=== PATIENT | female | born 1945 | race Caucasian/White ===

== ENCOUNTER → 2016-02-23 | Outpatient (CLI) | payer MEDICARE, MEDICAID ==
[~2016-02-23] MED LIST: ALBUTEROL0.09 MG/A2 IH; BENICAR40 MG; BENICAR40 MG PO; BIAXIN500 MG PO; CEFADROXIL500 M1 PO; CIPROFLOXACIN500 MG PO; CLARITIN10 MG PO; COMBIVENT1 ARO IH; Coumadin2.5 MG PO; DAYPRO600 M1 PO; HUMALOG100 U/ML SC; HYDROCODONE BIT1 T11 PO; JANUVIA50 MG PO; K-DUR 20MEQ20 MEQ PO; LANTUS SOLOS100 U/M1 SC; LANTUS100 U/ML SC; LASIX40 MG PO; LISINOPRIL20 MG PO; MEDROL DOSEPAK4 MG PO; METOPROLOL25 MG; MIRTAZAPINE30 M1; NORCO 325 MG-51 TAB PO; NOVOLOG FLEX100 U/ML SC; NOVOLOG100 U/ML SC; OCUVITE LUTEIN1 CA1; PERCOCET 325 MG1 TA5 PO; POTASSIUM20 MEQ PO; PRAVASTATIN SOD40 MG; PRILOSEC OTC20 MG PO; PROAIR HFA0.09 MG/AC; Percocet 325 MG1 TAB PO; SYMBICORT; SYMBICORT1 AE1; SYNTHROID,LEV175 MCG PO; TRAMADOL50 MG PO; VIBRAMYCIN100 MG PO; ZITHROMAX Z PA250 MG PO; ZOFRAN4 MG PO
[2016-02-23 14:24] LABS: ALKALINE PHOSPHATASE 98 U/L (45-117); BILIRUBIN, TOTAL 0.5 mg/dl (0.2-1.0); BUN 20 mg/dl (7-24); CARBON DIOXIDE 27 mmol/L (21-32); CHLORIDE 107 mmol/L (98-107); CHOLESTEROL 163 mg/dL (<200); EST GLOM FILT AFRICAN AMERICAN > 60 ml/min; GLUCOSE 158 mg/dL (65-99); HDL CHOLESTEROL 38 mg/dl (40-60); LDL CHOLESTEROL 92 mg/dL (9-159); POTASSIUM 4.1 mmol/L (3.5-5.1); SGOT/AST 20 IU/L (3-35); SGPT/ALT 22 U/L (12-78); SODIUM 143 mmol/L (136-145); TOTAL PROTEIN 7.5 gm/dL (6.4-8.2); TRIGLYCERIDES 165 mg/dl (<150); VLDL CHOLESTEROL 33 mg/dL (6-40)
[2016-02-23 14:55] LABS: HEMOGLOBIN A1c 7.7 % (4.8-5.6)
== END | disposition home or self-care (01) ==
LOC: LAB 13:37
DX: E11.9 Type 2 diabetes mellitus without complications (principal); I10 Essential (primary) hypertension; E78.5 Hyperlipidemia, unspecified

== ENCOUNTER → 2016-06-26 | Outpatient (CLI) | payer MEDICARE, MEDICAID ==
[2016-06-26 14:40] LABS: ALBUMIN 2.9 gm/dl (3.1-4.5); BILIRUBIN, TOTAL 0.4 mg/dl (0.2-1.0); BUN 16 mg/dl (7-24); CARBON DIOXIDE 27 mmol/L (21-32); CHLORIDE 104 mmol/L (98-107); EST GLOM FILT AFRICAN AMERICAN > 60 ml/min; GLUCOSE 171 mg/dL (65-99); POTASSIUM 4.3 mmol/L (3.5-5.1); SGOT/AST 13 IU/L (3-35); SGPT/ALT 16 U/L (12-78); SODIUM 139 mmol/L (136-145)
[2016-06-26 14:43] LABS: HEMOGLOBIN A1c 8.1 % (4.8-5.6)
[2016-06-26 14:48] LABS: ALKALINE PHOSPHATASE 101 U/L (45-117); CHOLESTEROL 173 mg/dL (<200); HDL CHOLESTEROL 49 mg/dl (40-60); LDL CHOLESTEROL 99 mg/dL (9-159); TOTAL PROTEIN 7.4 gm/dL (6.4-8.2); TRIGLYCERIDES 125 mg/dl (<150); VLDL CHOLESTEROL 25 mg/dL (6-40)
== END | disposition home or self-care (01) ==
LOC: LAB 13:34
PROVIDERS: Physician Assistant Medical
DX: E03.9 Hypothyroidism, unspecified (principal); I10 Essential (primary) hypertension; E78.00 Pure hypercholesterolemia, unspecified; E11.65 Type 2 diabetes mellitus with hyperglycemia

== ENCOUNTER → 2016-10-31 | Outpatient (CLI) | payer MEDICARE, MEDICAID ==
[2016-10-31 14:29] LABS: ALKALINE PHOSPHATASE 102 U/L (45-117); BUN 11 mg/dl (7-24); CHLORIDE 101 mmol/L (98-107); CHOLESTEROL 167 mg/dL (<200); CREATININE 0.84 mg/dL (0.55-1.02); FREE T4 0.82 ng/dl (0.76-1.46); HDL CHOLESTEROL 40 mg/dl (40-60); LDL CHOLESTEROL 88 mg/dL (9-159); POTASSIUM 3.8 mmol/L (3.5-5.1); SGOT/AST 15 IU/L (3-35); SGPT/ALT 12 U/L (12-78); SODIUM 136 mmol/L (136-145); TOTAL PROTEIN 7.6 gm/dL (6.4-8.2); TRIGLYCERIDES 193 mg/dl (<150); VLDL CHOLESTEROL 39 mg/dL (6-40)
== END | disposition home or self-care (01) ==
LOC: LAB 13:31
PROVIDERS: Physician Assistant Medical
DX: E11.65 Type 2 diabetes mellitus with hyperglycemia (principal); I10 Essential (primary) hypertension; E78.00 Pure hypercholesterolemia, unspecified; E03.9 Hypothyroidism, unspecified; E55.9 Vitamin D deficiency, unspecified

== ENCOUNTER → 2017-03-07 | Outpatient (CLI) | payer MEDICARE, MEDICAID ==
[2017-03-07 13:58] LABS: THYROID STIM HORMONE (HS) 26.8 uIU/ml (0.358-4.75)
[2017-03-07 14:02] LABS: FREE T4 0.73 ng/dl (0.76-1.46)
== END | disposition home or self-care (01) ==
LOC: LAB 13:04
DX: E03.9 Hypothyroidism, unspecified (principal); E11.65 Type 2 diabetes mellitus with hyperglycemia

== ENCOUNTER → 2017-07-16 | Outpatient (CLI) | payer MEDICARE, MEDICAID ==
[2017-07-16 14:54] LABS: THYROID STIM HORMONE (HS) 16.6 uIU/ml (0.358-4.75)
== END | disposition home or self-care (01) ==
LOC: LAB 13:46
DX: E11.65 Type 2 diabetes mellitus with hyperglycemia (principal); E03.9 Hypothyroidism, unspecified

== ENCOUNTER 2017-08-05 22:25 | Emergency (ER) | payer MEDICARE, MEDICAID ==
[~2017-08-05] VITALS: Ht 170.1 cm; Wt 90.3 kg
[2017-08-05 23:04] LABS: INTERNATIONAL NORM RATIO 1.1 (2.0-3.5)
[2017-08-05 23:07] LABS: BASO % 0.4 % (0.0-1.0); EOS # 0.2 10*3/uL (0.0-0.4); EOS % 1.9 % (1.0-4.0); HEMATOCRIT 38.6 % (37.0-47.0); HEMOGLOBIN 12.2 g/dl (12.0-16.0); LYMPH % 25.6 % (27.0-41.0); MEAN CELL VOLUME 92.6 fl (81.0-99.0); MEAN CORPUSCULAR HGB 29.3 pg (27.0-31.0); MEAN CORPUSCULAR HGB CONC 31.6 g/dl (33.0-37.0); MEAN PLATELET VOLUME 10.6 fl (9.6-12.3); MONO # 1.1 10*3/uL (0.1-1.0); MONO % 13.5 % (3.0-9.0); NEUT # 4.6 10*3/uL (2.3-7.9); NEUT % 58.5 % (47.0-73.0); PLATELET COUNT AUTOMATED 252 10*3/uL (130-400); RED BLOOD COUNT 4.17 10*6/uL (4.10-5.10); RED CELL DISTRI WIDTH 13.4 % (0-14.5); WHITE BLOOD COUNT 7.9 10*3/uL (4.8-10.8)
[2017-08-05 23:12] LABS: ALBUMIN 3.4 gm/dl (3.1-4.5); CREATININE 1.73 mg/dL (0.55-1.02); POTASSIUM 5.1 mmol/L (3.5-5.1)
[2017-08-05 23:18] LABS: TROPONIN I 0.095 ng/ml (<0.045)
[2017-08-05 23:20] LABS: THYROID STIM HORMONE (HS) 0.476 uIU/ml (0.358-4.75)
== END 2017-08-06 00:51 | disposition short-term general hospital (02) ==
LOC: ED 22:25
PROVIDERS: Emergency Medicine Emergency Medical Services
DX: G45.9 Transient cerebral ischemic attack, unspecified (principal); I48.0 Paroxysmal atrial fibrillation; I25.2 Old myocardial infarction; E11.9 Type 2 diabetes mellitus without complications; I10 Essential (primary) hypertension; Z86.73 Personal history of transient ischemic attack (TIA), and cerebral infarction without residual deficits; Z99.81 Dependence on supplemental oxygen; Z79.82 Long term (current) use of aspirin; Z79.4 Long term (current) use of insulin; Z79.899 Other long term (current) drug therapy; Z98.890 Other specified postprocedural states; Z79.01 Long term (current) use of anticoagulants; Z88.2 Allergy status to sulfonamides

== ENCOUNTER → 2017-09-12 | Outpatient (CLI) | payer MEDICARE, MEDICAID ==
--- NOTE | ~2017-09-12 | EKG ---
[place], [place] ELECTROCARDIOGRAM REPORT NAME: PENG FRANCO UNIT #: [id number] ROOM: DOCTOR: EPIPHANY DRAFT REPORT BIRTHDATE: [birth year] [facility] Test Date: 2017-09-12 Test Time: 13:21:46 Pat Name: PENG FRANCO Department: Room: Gender: F Manager Nc: : 1945 Requested By: TOMY ALVAREZ Order Number: [id number] Reading MD: Tj Maki MD Measurements Intervals [place] Rate: 66 P: 82 MT: 157 QRS: 28 QRSD: 107 T: 142 QT: 430 QTc: 451 Interpretive Statements Sinus rhythm Inferior infarct, old Nonspecific T-wave abnormalities Baseline wander in lead(s) V4 Electronically Signed On 09-12-2017 21:40:43 PDT by Tj Maki MD CM:EKGRPT:ELECTROCARDIOGRAM REPORT 1321 2140 TOMY NGUYEN DRAFT REPORT TOMY ALVAREZ MD
[2017-09-12 13:26] LABS: CREATININE 1.94 mg/dL (0.55-1.02); POTASSIUM 4.9 mmol/L (3.5-5.1)
== END | disposition home or self-care (01) ==
LOC: LAB 12:29
PROVIDERS: Internal Medicine
DX: Z51.81 Encounter for therapeutic drug level monitoring (principal); R79.89 Other specified abnormal findings of blood chemistry

== ENCOUNTER 2017-11-19 14:22 | Inpatient (IN) | payer MEDICARE, MEDICAID ==
[~2017-11-19] VITALS: Ht 170.2 cm; Wt 94.3 kg
--- NOTE | ~2017-11-19 | EKG ---
[place], [place] ELECTROCARDIOGRAM REPORT NAME: PENG FRANCO UNIT #: [id number] ROOM: 511 DOCTOR: PATRICK DRAFT REPORT BIRTHDATE: [birth year] [facility] Test Date: 2017-11-19 Test Time: 17:37:18 Pat Name: PENG FRANCO Department: Room: 511 2 Gender: F Build Master: Jacqueline Florence : 1945 Requested By: LOVELY RODRIGUEZ Order Number: [id number] Reading MD: Tj Maki MD Measurements Intervals [place] Rate: 90 P: 99 MA: 107 QRS: 39 QRSD: 90 T: -37 QT: 399 QTc: 489 Interpretive Statements Wandering atrial pacemaker Multiform ventricular premature complexes Short MA interval NSST-T changes Compared to ECG 09/12/2017 13:21:46 Ventricular premature complex(es) now present Short MA interval now present Sinus rhythm no longer present Myocardial infarct finding no longer present Electronically Signed On 11-19-2017 19:54:57 PDT by Tj Maki MD CM:EKGRPT:ELECTROCARDIOGRAM REPORT 1737 53 LOVELY NGUYEN DRAFT REPORT LOVELY RODRIGUEZ MD
[2017-11-19 14:23] VITALS: BP 124/66
[2017-11-19 14:53] LABS: HEMATOCRIT 30.4 % (37.0-47.0); HEMOGLOBIN 9.3 g/dl (12.0-16.0); MEAN CELL VOLUME 86.4 fl (81.0-99.0); MEAN CORPUSCULAR HGB 26.4 pg (27.0-31.0); MEAN CORPUSCULAR HGB CONC 30.6 g/dl (33.0-37.0); MEAN PLATELET VOLUME 9.9 fl (9.6-12.3); NUCLEATED RED BLOOD CELL 0.1 % (0.0-0.0); PLATELET COUNT AUTOMATED 406 10*3/uL (130-400); RED BLOOD COUNT 3.52 10*6/uL (4.10-5.10); RED CELL DISTRI WIDTH 16.2 % (0-14.5); WHITE BLOOD COUNT 13.4 10*3/uL (4.8-10.8)
[2017-11-19 15:06] LABS: CREATININE 1.14 mg/dL (0.55-1.02); POTASSIUM 3.1 mmol/L (3.5-5.1)
[2017-11-19 15:15] LABS: TOTAL CELLS COUNTED 100 #CELLS
[2017-11-19 15:16] LABS: PLATELET SUFFICIENCY HIGH (NORMAL)
[2017-11-19 15:54] LABS: ACT PARTIAL THROMBO TIME 34.2 SECONDS (20.8-31.5); INTERNATIONAL NORM RATIO 1.3 (2.0-3.5)
[2017-11-19 17:01] VITALS: BP 123/61
[2017-11-19 18:10] LABS: ALBUMIN 1.6 gm/dl (3.1-4.5); ALKALINE PHOSPHATASE 114 U/L (45-117); BILIRUBIN, DIRECT 0.3 mg/dL (0.0-0.2); SGOT/AST 18 IU/L (3-35); SGPT/ALT 14 U/L (12-78); TOTAL PROTEIN 5.5 gm/dL (6.4-8.2)
[2017-11-19 18:15] LABS: TROPONIN I < 0.015 ng/ml (<0.045)
[2017-11-19 19:00] VITALS: BP 107/42
[2017-11-19] MEDS ORDERED: BUMETANIDE1 MG PO (19:08)
[2017-11-19] MEDS ORDERED: ARICEPT10 M1 PO (19:09)
[2017-11-19] MEDS ORDERED: ELIQUIS5 M1 PO (19:10)
[2017-11-19] MEDS ORDERED: METOPROLOL SUC100 M1 PO (19:17)
[2017-11-19] MEDS ORDERED: FERROUS GLUCON324 M1 PO (19:18)
[2017-11-19] MEDS ORDERED: FERROUS SULFAT325 MG PO (19:18)
[2017-11-19] MEDS ORDERED: PROTONIX40 MG PO (19:19)
[2017-11-19] MEDS ORDERED: PROPAFENONE HC150 MG PO (19:20)
[2017-11-19] MEDS ORDERED: RANITIDINE75 MG PO (19:20)
[2017-11-19 20:00] VITALS: BP 107/42
[2017-11-20] VITALS (10 sets, daily range): BP systolic 106–130; BP diastolic 51–71
[2017-11-20 07:14] LABS: ACT PARTIAL THROMBO TIME 35.7 SECONDS (20.8-31.5); INTERNATIONAL NORM RATIO 1.3 (2.0-3.5)
[2017-11-20 07:20] LABS: BASO % 0.3 % (0.0-1.0); EOS % 0.2 % (1.0-4.0); LYMPH # 1.3 10*3/uL (1.3-4.4); LYMPH % 21.3 % (27.0-41.0); MEAN CELL VOLUME 87.6 fl (81.0-99.0); MEAN CORPUSCULAR HGB 25.9 pg (27.0-31.0); MEAN CORPUSCULAR HGB CONC 29.6 g/dl (33.0-37.0); MEAN PLATELET VOLUME 9.8 fl (9.6-12.3); MONO # 0.7 10*3/uL (0.1-1.0); MONO % 11.7 % (3.0-9.0); NEUT # 4.1 10*3/uL (2.3-7.9); NEUT % 64.9 % (47.0-73.0); PLATELET COUNT AUTOMATED 289 10*3/uL (130-400); RED BLOOD COUNT 2.66 10*6/uL (4.10-5.10); RED CELL DISTRI WIDTH 16.5 % (0-14.5); WHITE BLOOD COUNT 6.3 10*3/uL (4.8-10.8)
[2017-11-20 07:22] LABS: HEMOGLOBIN 6.9 g/dl (12.0-16.0)
[2017-11-20 07:23] LABS: HEMATOCRIT 23.3 % (37.0-47.0)
[2017-11-20 07:33] LABS: CHLORIDE 103 mmol/L (98-107); POTASSIUM 3.4 mmol/L (3.5-5.1); SODIUM 138 mmol/L (136-145)
[2017-11-20 07:46] LABS: ALBUMIN 1.5 gm/dl (3.1-4.5); ALKALINE PHOSPHATASE 104 U/L (45-117); BUN 11 mg/dl (7-24); CHOLESTEROL 78 mg/dL (<200); CREATININE 0.83 mg/dL (0.55-1.02); HDL CHOLESTEROL 15 mg/dl (40-60); LDL CHOLESTEROL 36 mg/dL (9-159); PHOSPHOROUS 3.1 mg/dL (2.5-4.9); SGOT/AST 17 IU/L (3-35); SGPT/ALT 12 U/L (12-78); TOTAL PROTEIN 4.8 gm/dL (6.4-8.2); TRIGLYCERIDES 136 mg/dl (<150); VLDL CHOLESTEROL 27 mg/dL (6-40)
[2017-11-20 10:04] LABS: VITAMIN D, 25-HYDROXY 18.1 ng/mL (30-100)
[2017-11-20 15:20] LABS: BASO % 0.3 % (0.0-1.0); EOS % 0.1 % (1.0-4.0); HEMATOCRIT 28.3 % (37.0-47.0); HEMOGLOBIN 8.6 g/dl (12.0-16.0); LYMPH # 1.6 10*3/uL (1.3-4.4); LYMPH % 23.4 % (27.0-41.0); MEAN CELL VOLUME 88.7 fl (81.0-99.0); MEAN CORPUSCULAR HGB CONC 30.4 g/dl (33.0-37.0); MEAN PLATELET VOLUME 9.9 fl (9.6-12.3); MONO # 0.7 10*3/uL (0.1-1.0); MONO % 9.9 % (3.0-9.0); NEUT # 4.5 10*3/uL (2.3-7.9); NEUT % 64.8 % (47.0-73.0); PLATELET COUNT AUTOMATED 309 10*3/uL (130-400); RED BLOOD COUNT 3.19 10*6/uL (4.10-5.10); WHITE BLOOD COUNT 6.9 10*3/uL (4.8-10.8)
[2017-11-21] VITALS: BP 109/70
[2017-11-21 08:00] VITALS: BP 132/70
[2017-11-21 10:42] LABS: BASO % 0.2 % (0.0-1.0); EOS % 0.3 % (1.0-4.0); HEMATOCRIT 28.4 % (37.0-47.0); HEMOGLOBIN 8.6 g/dl (12.0-16.0); LYMPH # 1.5 10*3/uL (1.3-4.4); MEAN CELL VOLUME 88.2 fl (81.0-99.0); MEAN CORPUSCULAR HGB 26.7 pg (27.0-31.0); MEAN CORPUSCULAR HGB CONC 30.3 g/dl (33.0-37.0); MEAN PLATELET VOLUME 9.6 fl (9.6-12.3); MONO # 0.5 10*3/uL (0.1-1.0); MONO % 8.8 % (3.0-9.0); NEUT # 3.9 10*3/uL (2.3-7.9); PLATELET COUNT AUTOMATED 313 10*3/uL (130-400); RED BLOOD COUNT 3.22 10*6/uL (4.10-5.10); RED CELL DISTRI WIDTH 16.1 % (0-14.5)
[2017-11-21 11:05] LABS: ALBUMIN 1.6 gm/dl (3.1-4.5); ALKALINE PHOSPHATASE 104 U/L (45-117); BUN 10 mg/dl (7-24); CHLORIDE 105 mmol/L (98-107); CREATININE 0.87 mg/dL (0.55-1.02); POTASSIUM 3.5 mmol/L (3.5-5.1); SGOT/AST 17 IU/L (3-35); SGPT/ALT 14 U/L (12-78); SODIUM 140 mmol/L (136-145); TOTAL PROTEIN 5.2 gm/dL (6.4-8.2)
[2017-11-21 12:00] VITALS: BP 122/70
[2017-11-21 16:00] VITALS: BP 119/75
[2017-11-21 20:00] VITALS: BP 102/58
[2017-11-22] VITALS: BP 127/67
[2017-11-22 06:59] LABS: BASO % 0.5 % (0.0-1.0); EOS % 0.3 % (1.0-4.0); HEMATOCRIT 27.1 % (37.0-47.0); HEMOGLOBIN 8.3 g/dl (12.0-16.0); LYMPH # 1.2 10*3/uL (1.3-4.4); LYMPH % 20.8 % (27.0-41.0); MEAN CORPUSCULAR HGB 26.9 pg (27.0-31.0); MEAN CORPUSCULAR HGB CONC 30.6 g/dl (33.0-37.0); MEAN PLATELET VOLUME 9.9 fl (9.6-12.3); MONO # 0.6 10*3/uL (0.1-1.0); MONO % 9.9 % (3.0-9.0); NEUT # 3.9 10*3/uL (2.3-7.9); NEUT % 66.9 % (47.0-73.0); PLATELET COUNT AUTOMATED 311 10*3/uL (130-400); RED BLOOD COUNT 3.08 10*6/uL (4.10-5.10); RED CELL DISTRI WIDTH 16.3 % (0-14.5); WHITE BLOOD COUNT 5.8 10*3/uL (4.8-10.8)
[2017-11-22 07:37] LABS: ALBUMIN 1.7 gm/dl (3.1-4.5); BUN 8 mg/dl (7-24); CHLORIDE 103 mmol/L (98-107); POTASSIUM 3.5 mmol/L (3.5-5.1); SGOT/AST 18 IU/L (3-35); SGPT/ALT 14 U/L (12-78); SODIUM 139 mmol/L (136-145)
[2017-11-22 07:38] LABS: ALKALINE PHOSPHATASE 93 U/L (45-117); TOTAL PROTEIN 5.2 gm/dL (6.4-8.2)
[2017-11-22 08:00] VITALS: BP 108/62
[2017-11-22 12:00] VITALS: BP 111/48
[2017-11-22 16:00] VITALS: BP 116/56
[2017-11-22 17:44] LABS: BILIRUBIN NEGATIVE (NEGATIVE); BLOOD 1+ (NEGATIVE); CLARITY CLEAR (CLEAR); COLOR YELLOW (YELLOW); GLUCOSE NEGATIVE (NEGATIVE); KETONE NEGATIVE (NEGATIVE); LEUKO ESTERASE 1+ (NEGATIVE); NITRITE POSITIVE (NEGATIVE); SPECIFIC GRAVITY 1.015 (1.005-1.030); UROBILINOGEN 0.2 E.U./dl (0.2-1.0)
[2017-11-22 17:56] LABS: BACTERIA 4+; EPITHELIAL CELLS 0-2; WBC 31-40 wbc/hpf (0-5)
[2017-11-22 20:00] VITALS: BP 118/52
[2017-11-23] VITALS: BP 113/72
[2017-11-23 06:23] LABS: BASO % 0.5 % (0.0-1.0); EOS % 0.2 % (1.0-4.0); HEMATOCRIT 28.2 % (37.0-47.0); HEMOGLOBIN 8.5 g/dl (12.0-16.0); LYMPH # 1.4 10*3/uL (1.3-4.4); LYMPH % 15.8 % (27.0-41.0); MEAN CELL VOLUME 87.6 fl (81.0-99.0); MEAN CORPUSCULAR HGB 26.4 pg (27.0-31.0); MEAN CORPUSCULAR HGB CONC 30.1 g/dl (33.0-37.0); MEAN PLATELET VOLUME 9.7 fl (9.6-12.3); MONO # 0.9 10*3/uL (0.1-1.0); MONO % 9.7 % (3.0-9.0); NEUT # 6.4 10*3/uL (2.3-7.9); NEUT % 72.9 % (47.0-73.0); PLATELET COUNT AUTOMATED 313 10*3/uL (130-400); RED BLOOD COUNT 3.22 10*6/uL (4.10-5.10); RED CELL DISTRI WIDTH 16.2 % (0-14.5); WHITE BLOOD COUNT 8.7 10*3/uL (4.8-10.8)
[2017-11-23 06:53] LABS: ALBUMIN 1.7 gm/dl (3.1-4.5); ALKALINE PHOSPHATASE 95 U/L (45-117); BUN 7 mg/dl (7-24); CHLORIDE 102 mmol/L (98-107); CREATININE 0.86 mg/dL (0.55-1.02); POTASSIUM 3.1 mmol/L (3.5-5.1); SGOT/AST 15 IU/L (3-35); SGPT/ALT 14 U/L (12-78); SODIUM 139 mmol/L (136-145); TOTAL PROTEIN 5.6 gm/dL (6.4-8.2)
[2017-11-23 08:00] VITALS: BP 118/64
[2017-11-23 12:00] VITALS: BP 109/75
[2017-11-23 16:00] VITALS: BP 128/47
[2017-11-23 20:00] VITALS: BP 126/55
[2017-11-24] VITALS: BP 113/60
[2017-11-24 08:00] VITALS: BP 115/60
[2017-11-24] MEDS ORDERED: CIPRO250 MG PO (10:02)
[2017-11-24] MEDS ORDERED: PHARMASSURE FO0.4 MG PO (10:02)
[2017-11-24 12:00] VITALS: BP 100/53
== END 2017-11-24 15:45 | disposition other institution (70) | DRG 551 ==
LOC: ED 14:22 → EDHOLD 16:32 → 5E 16:32
PROVIDERS: Emergency Medicine; Family Medicine; Internal Medicine; Student in an Organized Health Care Education/Training Program
PROC: 30233N1 Transfusion of Nonautologous Red Blood Cells into Peripheral Vein, Percutaneous Approach (ICD-10-PCS; principal; 2017-11-20)
DX: S22.080A Wedge compression fracture of T11-T12 vertebra, initial encounter for closed fracture (principal); N17.0 Acute kidney failure with tubular necrosis; E43 Unspecified severe protein-calorie malnutrition; N39.0 Urinary tract infection, site not specified; D64.9 Anemia, unspecified; N18.3 Chronic kidney disease, stage 3 (moderate); D72.825 Bandemia; E11.65 Type 2 diabetes mellitus with hyperglycemia; I48.0 Paroxysmal atrial fibrillation; N18.9 Chronic kidney disease, unspecified; E11.22 Type 2 diabetes mellitus with diabetic chronic kidney disease; K21.9 Gastro-esophageal reflux disease without esophagitis; E80.6 Other disorders of bilirubin metabolism; D72.810 Lymphocytopenia; D72.9 Disorder of white blood cells, unspecified; E87.6 Hypokalemia; Y93.89 Activity, other specified; D47.3 Essential (hemorrhagic) thrombocythemia; J43.9 Emphysema, unspecified; B96.1 Klebsiella pneumoniae [K. pneumoniae] as the cause of diseases classified elsewhere; E55.9 Vitamin D deficiency, unspecified; E53.8 Deficiency of other specified B group vitamins; R31.9 Hematuria, unspecified; G89.29 Other chronic pain; M54.9 Dorsalgia, unspecified; W18.30XA Fall on same level, unspecified, initial encounter; Z88.2 Allergy status to sulfonamides; Z86.73 Personal history of transient ischemic attack (TIA), and cerebral infarction without residual deficits; Z90.710 Acquired absence of both cervix and uterus; Z95.5 Presence of coronary angioplasty implant and graft; Z79.01 Long term (current) use of anticoagulants; Y92.008 Other place in unspecified non-institutional (private) residence as the place of occurrence of the external cause; Y99.8 Other external cause status; I25.2 Old myocardial infarction; Z98.49 Cataract extraction status, unspecified eye; Z68.32 Body mass index [BMI] 32.0-32.9, adult

== ENCOUNTER 2017-12-24 15:43 | Inpatient (IN) | payer MEDICARE, MEDICAID ==
[~2017-12-24] VITALS: Ht 170.1 cm; Wt 76.2 kg
--- NOTE | ~2017-12-24 | EKG ---
[place], [place] ELECTROCARDIOGRAM REPORT NAME: PENG FRANCO UNIT #: [id number] ROOM: 412 DOCTOR: PATRICK DRAFT REPORT BIRTHDATE: [birth year] [facility] Test Date: 2017-12-24 Test Time: 15:56:12 Pat Name: PENG FRANCO Department: Room: 412 Gender: F Journeyman Patternmaker: DAVE : 1945 Requested By: LOVELY RODRIGUEZ Order Number: [id number] Reading MD: Tj Maki MD Measurements Intervals [place] Rate: 74 P: 68 MO: 135 QRS: 40 QRSD: 93 T: -18 QT: 427 QTc: 474 Interpretive Statements Sinus rhythm with wandering atrial pacemaker Multiple premature complexes, vent \T\ supraven Borderline repolarization abnormality Compared to ECG 11/19/2017 17:37:18 No significant change Electronically Signed On 12-24-2017 20:20:08 PST by Tj Maki MD CM:EKGRPT:ELECTROCARDIOGRAM REPORT 1556 19 LOVELY NGUYEN DRAFT REPORT LOVELY RODRIGUEZ MD
[~2017-12-24 15:43] MED LIST changes: +ARICEPT10 M1 PO; +BUMETANIDE1 MG PO; +CIPRO250 MG PO; +ELIQUIS5 M1 PO; +FERROUS GLUCON324 M1 PO; +FERROUS SULFAT325 MG PO; +METOPROLOL SUC100 M1 PO; +PHARMASSURE FO0.4 MG PO; +PROPAFENONE HC150 MG PO; +PROTONIX40 MG PO; +RANITIDINE75 MG PO
[2017-12-24 15:44] VITALS: BP 116/49
[2017-12-24 16:18] LABS: BASO % 0.3 % (0.0-1.0); EOS # 0.1 10*3/uL (0.0-0.4); EOS % 3.8 % (1.0-4.0); HEMATOCRIT 28.3 % (37.0-47.0); HEMOGLOBIN 8.6 g/dl (12.0-16.0); LYMPH # 1.2 10*3/uL (1.3-4.4); LYMPH % 34.3 % (27.0-41.0); MEAN CELL VOLUME 90.4 fl (81.0-99.0); MEAN CORPUSCULAR HGB 27.5 pg (27.0-31.0); MEAN CORPUSCULAR HGB CONC 30.4 g/dl (33.0-37.0); MONO # 0.5 10*3/uL (0.1-1.0); MONO % 14.5 % (3.0-9.0); NEUT # 1.6 10*3/uL (2.3-7.9); NEUT % 46.8 % (47.0-73.0); PLATELET COUNT AUTOMATED 184 10*3/uL (130-400); RED BLOOD COUNT 3.13 10*6/uL (4.10-5.10); RED CELL DISTRI WIDTH 16.3 % (0-14.5); WHITE BLOOD COUNT 3.4 10*3/uL (4.8-10.8)
[2017-12-24 16:28] LABS: ACT PARTIAL THROMBO TIME 26.8 SECONDS (20.8-31.5); INTERNATIONAL NORM RATIO 1.2 (2.0-3.5)
[2017-12-24 16:30] VITALS: BP 114/41
[2017-12-24 16:34] LABS: ALBUMIN 2.6 gm/dl (3.1-4.5); CREATININE 1.15 mg/dL (0.55-1.02); POTASSIUM 3.2 mmol/L (3.5-5.1); TOTAL PROTEIN 6.3 gm/dL (6.4-8.2)
[2017-12-24 16:36] LABS: TROPONIN I 0.016 ng/ml (<0.045)
[2017-12-24 16:47] LABS: THYROID STIM HORMONE (HS) 1.4 uIU/ml (0.358-4.75)
[2017-12-24 17:08] VITALS: BP 98/52
[2017-12-24] MEDS ORDERED: ACETAMINOPHEN500 M5 PO (17:29)
[2017-12-24 17:32] VITALS: BP 109/37
[2017-12-24] MEDS ORDERED: ARMOUR THYROID180 M1 PO (18:04)
[2017-12-24 20:00] VITALS: BP 108/48
[2017-12-25] VITALS: BP 105/40
[2017-12-25 05:49] LABS: EOS # 0.2 10*3/uL (0.0-0.4); HEMATOCRIT 26.5 % (37.0-47.0); HEMOGLOBIN 7.8 g/dl (12.0-16.0); LYMPH # 0.8 10*3/uL (1.3-4.4); LYMPH % 30.2 % (27.0-41.0); MEAN CORPUSCULAR HGB 27.1 pg (27.0-31.0); MEAN CORPUSCULAR HGB CONC 29.4 g/dl (33.0-37.0); MEAN PLATELET VOLUME 10.7 fl (9.6-12.3); MONO # 0.4 10*3/uL (0.1-1.0); MONO % 16.6 % (3.0-9.0); NEUT # 1.3 10*3/uL (2.3-7.9); NEUT % 47.2 % (47.0-73.0); PLATELET COUNT AUTOMATED 172 10*3/uL (130-400); RED BLOOD COUNT 2.88 10*6/uL (4.10-5.10); RED CELL DISTRI WIDTH 16.7 % (0-14.5); WHITE BLOOD COUNT 2.7 10*3/uL (4.8-10.8)
[2017-12-25 05:50] LABS: ALBUMIN 2.3 gm/dl (3.1-4.5); CREATININE 1.35 mg/dL (0.55-1.02); PHOSPHOROUS 4.3 mg/dL (2.5-4.9); POTASSIUM 3.3 mmol/L (3.5-5.1); TOTAL PROTEIN 5.7 gm/dL (6.4-8.2)
[2017-12-25 05:51] LABS: FREE T4 1.08 ng/dl (0.76-1.46)
[2017-12-25 05:55] LABS: THYROID STIM HORMONE (HS) 1.56 uIU/ml (0.358-4.75)
[2017-12-25 06:26] LABS: INTERNATIONAL NORM RATIO 1.2 (2.0-3.5)
[2017-12-25 07:30] VITALS: BP 118/50
[2017-12-25 07:55] LABS: VITAMIN D, 25-HYDROXY 22.2 ng/mL (30-100)
[2017-12-25 08:00] VITALS: BP 118/50
[2017-12-25 12:00] VITALS: BP 122/59
== END 2017-12-25 14:35 | disposition home health service (06) | DRG 291 ==
LOC: ED 15:43 → EDHOLD 16:51 → 4E 16:51
PROVIDERS: Emergency Medicine; Family Medicine
DX: I50.33 Acute on chronic diastolic (congestive) heart failure (principal); E43 Unspecified severe protein-calorie malnutrition; N17.0 Acute kidney failure with tubular necrosis; Z68.45 Body mass index [BMI] 70 or greater, adult; D50.9 Iron deficiency anemia, unspecified; E11.65 Type 2 diabetes mellitus with hyperglycemia; E87.8 Other disorders of electrolyte and fluid balance, not elsewhere classified; D72.819 Decreased white blood cell count, unspecified; M79.604 Pain in right leg; M79.605 Pain in left leg; E55.9 Vitamin D deficiency, unspecified; J43.9 Emphysema, unspecified; N18.9 Chronic kidney disease, unspecified; E11.22 Type 2 diabetes mellitus with diabetic chronic kidney disease; K21.9 Gastro-esophageal reflux disease without esophagitis; E87.6 Hypokalemia; I45.81 Long QT syndrome; I48.0 Paroxysmal atrial fibrillation; I25.2 Old myocardial infarction; Z86.73 Personal history of transient ischemic attack (TIA), and cerebral infarction without residual deficits; Z79.01 Long term (current) use of anticoagulants; Z88.2 Allergy status to sulfonamides; Z98.41 Cataract extraction status, right eye; Z98.42 Cataract extraction status, left eye; Z95.5 Presence of coronary angioplasty implant and graft; Z90.710 Acquired absence of both cervix and uterus; Z82.49 Family history of ischemic heart disease and other diseases of the circulatory system; Z79.84 Long term (current) use of oral hypoglycemic drugs; Z79.899 Other long term (current) drug therapy; Z91.14 Patient's other noncompliance with medication regimen

== ENCOUNTER 2018-01-18 01:56 | Inpatient (IN) | payer MEDICARE, MEDICAID ==
[~2018-01-18] VITALS: Ht 170.1 cm; Wt 79.0 kg
[2018-01-18] VITALS (7 sets, daily range): BP systolic 126–167; BP diastolic 59–97
--- NOTE | ~2018-01-18 | EKG ---
[place], [place] ELECTROCARDIOGRAM REPORT NAME: PENG FRANCO UNIT #: [id number] ROOM: 410 DOCTOR: PATRICK DRAFT REPORT BIRTHDATE: [birth year] [facility] Test Date: 2018-01-18 Test Time: 05:13:50 Pat Name: PENG FRANCO Department: Room: 410 Gender: F Diabetes Territory Manager: : 1945 Requested By: JEREMY BERGMAN Order Number: [id number] Reading MD: Tj Maki MD Measurements Intervals [place] Rate: 90 P: 36 WV: 136 QRS: 71 QRSD: 88 T: 98 QT: 398 QTc: 487 Interpretive Statements Sinus rhythm with wandering atrial pacemaker Borderline low voltage, extremity leads Borderline repolarization abnormality Compared to ECG 12/24/2017 15:56:12 No significant change Electronically Signed On 01-18-2018 14:31:27 PST by Tj Maki MD CM:EKGRPT:ELECTROCARDIOGRAM REPORT 0513 1431 JEREMY GALVAN DRAFT REPORT JEREMY BERGMAN DO
[~2018-01-18 01:56] MED LIST changes: +ACETAMINOPHEN500 M5 PO; +ARMOUR THYROID180 M1 PO
[2018-01-18 04:30] LABS: BILIRUBIN NEGATIVE (NEGATIVE); BLOOD 3+ (NEGATIVE); CLARITY CLOUDY (CLEAR); COLOR YELLOW (YELLOW); GLUCOSE NEGATIVE (NEGATIVE); KETONE NEGATIVE (NEGATIVE); LEUKO ESTERASE NEGATIVE (NEGATIVE); NITRITE NEGATIVE (NEGATIVE); UROBILINOGEN 0.2 E.U./dl (0.2-1.0)
[2018-01-18 04:45] LABS: BACTERIA 4+; EPITHELIAL CELLS 15-20; RBC 21-30 rbc/hpf (0-2)
[2018-01-18 05:13] LABS: BASO % 0.1 % (0.0-1.0); HEMATOCRIT 33.3 % (37.0-47.0); HEMOGLOBIN 9.9 g/dl (12.0-16.0); LYMPH # 1.1 10*3/uL (1.3-4.4); LYMPH % 13.7 % (27.0-41.0); MEAN CORPUSCULAR HGB 26.5 pg (27.0-31.0); MEAN CORPUSCULAR HGB CONC 29.7 g/dl (33.0-37.0); MEAN PLATELET VOLUME 9.1 fl (9.6-12.3); MONO # 0.7 10*3/uL (0.1-1.0); MONO % 8.4 % (3.0-9.0); NEUT # 6.5 10*3/uL (2.3-7.9); NEUT % 77.6 % (47.0-73.0); PLATELET COUNT AUTOMATED 238 10*3/uL (130-400); RED BLOOD COUNT 3.74 10*6/uL (4.10-5.10); RED CELL DISTRI WIDTH 14.8 % (0-14.5); WHITE BLOOD COUNT 8.4 10*3/uL (4.8-10.8)
[2018-01-18 05:22] LABS: INTERNATIONAL NORM RATIO 1.2 (2.0-3.5)
[2018-01-18 05:30] LABS: ALBUMIN 2.5 gm/dl (3.1-4.5); ALKALINE PHOSPHATASE 105 U/L (45-117); BUN 6 mg/dl (7-24); CHLORIDE 102 mmol/L (98-107); CREATININE 0.82 mg/dL (0.55-1.02); POTASSIUM 3.1 mmol/L (3.5-5.1); SGOT/AST 14 IU/L (3-35); SGPT/ALT 10 U/L (12-78); SODIUM 139 mmol/L (136-145); TOTAL PROTEIN 6.6 gm/dL (6.4-8.2)
[2018-01-19] VITALS: BP 133/51
[2018-01-19 05:58] LABS: BUN 7 mg/dl (7-24); CHLORIDE 105 mmol/L (98-107); CREATININE 0.92 mg/dL (0.55-1.02); PHOSPHOROUS 3.4 mg/dL (2.5-4.9); POTASSIUM 3.3 mmol/L (3.5-5.1); SODIUM 143 mmol/L (136-145)
[2018-01-19 06:09] LABS: BASO % 0.4 % (0.0-1.0); EOS % 0.4 % (1.0-4.0); HEMATOCRIT 31.7 % (37.0-47.0); HEMOGLOBIN 9.1 g/dl (12.0-16.0); LYMPH # 1.6 10*3/uL (1.3-4.4); MEAN CELL VOLUME 90.8 fl (81.0-99.0); MEAN CORPUSCULAR HGB 26.1 pg (27.0-31.0); MEAN CORPUSCULAR HGB CONC 28.7 g/dl (33.0-37.0); MEAN PLATELET VOLUME 10.3 fl (9.6-12.3); MONO % 15.3 % (3.0-9.0); NEUT % 59.8 % (47.0-73.0); PLATELET COUNT AUTOMATED 240 10*3/uL (130-400); RED BLOOD COUNT 3.49 10*6/uL (4.10-5.10); RED CELL DISTRI WIDTH 14.9 % (0-14.5); WHITE BLOOD COUNT 6.7 10*3/uL (4.8-10.8)
[2018-01-19 12:00] VITALS: BP 94/53
[2018-01-19 16:00] VITALS: BP 122/64
[2018-01-19 20:00] VITALS: BP 132/73
[2018-01-20] VITALS: BP 124/48
[2018-01-20 06:04] LABS: BASO % 0.5 % (0.0-1.0); EOS # 0.1 10*3/uL (0.0-0.4); EOS % 0.9 % (1.0-4.0); HEMOGLOBIN 10.4 g/dl (12.0-16.0); LYMPH # 1.8 10*3/uL (1.3-4.4); LYMPH % 30.2 % (27.0-41.0); MEAN CELL VOLUME 89.7 fl (81.0-99.0); MEAN CORPUSCULAR HGB 26.7 pg (27.0-31.0); MEAN CORPUSCULAR HGB CONC 29.7 g/dl (33.0-37.0); MONO # 0.8 10*3/uL (0.1-1.0); MONO % 13.8 % (3.0-9.0); NEUT # 3.2 10*3/uL (2.3-7.9); NEUT % 54.4 % (47.0-73.0); PLATELET COUNT AUTOMATED 249 10*3/uL (130-400); RED CELL DISTRI WIDTH 15.1 % (0-14.5); WHITE BLOOD COUNT 5.8 10*3/uL (4.8-10.8)
[2018-01-20 06:23] LABS: BUN 8 mg/dl (7-24); CHLORIDE 105 mmol/L (98-107); CREATININE 1.05 mg/dL (0.55-1.02); POTASSIUM 3.4 mmol/L (3.5-5.1); SODIUM 142 mmol/L (136-145)
[2018-01-20 08:00] VITALS: BP 131/59
[2018-01-20 12:00] VITALS: BP 130/62
[2018-01-20 16:00] VITALS: BP 130/65
[2018-01-20 20:00] VITALS: BP 123/55
[2018-01-21] VITALS: BP 120/55
[2018-01-21 06:48] LABS: BASO % 0.5 % (0.0-1.0); EOS # 0.1 10*3/uL (0.0-0.4); HEMATOCRIT 31.9 % (37.0-47.0); HEMOGLOBIN 9.4 g/dl (12.0-16.0); LYMPH # 2.3 10*3/uL (1.3-4.4); MEAN CELL VOLUME 90.4 fl (81.0-99.0); MEAN CORPUSCULAR HGB 26.6 pg (27.0-31.0); MEAN CORPUSCULAR HGB CONC 29.5 g/dl (33.0-37.0); MEAN PLATELET VOLUME 10.3 fl (9.6-12.3); MONO % 17.2 % (3.0-9.0); NEUT # 2.6 10*3/uL (2.3-7.9); PLATELET COUNT AUTOMATED 246 10*3/uL (130-400); RED BLOOD COUNT 3.53 10*6/uL (4.10-5.10); RED CELL DISTRI WIDTH 15.1 % (0-14.5); WHITE BLOOD COUNT 6.1 10*3/uL (4.8-10.8)
[2018-01-21 07:16] LABS: BUN 7 mg/dl (7-24); CHLORIDE 106 mmol/L (98-107); CREATININE 1.05 mg/dL (0.55-1.02); POTASSIUM 3.9 mmol/L (3.5-5.1); SODIUM 146 mmol/L (136-145)
[2018-01-21 08:00] VITALS: BP 128/62
[2018-01-21] MEDS ORDERED: ZITHROMAX250 MG PO (08:54)
[2018-01-21] MEDS ORDERED: PREDNISONE10 MG PO (08:54)
== END 2018-01-21 14:00 | disposition home health service (06) | DRG 193 ==
LOC: ED 01:56 → EDHOLD 06:05 → 4E 06:05
PROVIDERS: Emergency Medicine; Internal Medicine; Student in an Organized Health Care Education/Training Program
DX: J18.9 Pneumonia, unspecified organism (principal); E43 Unspecified severe protein-calorie malnutrition; N39.0 Urinary tract infection, site not specified; I50.32 Chronic diastolic (congestive) heart failure; E87.2 Acidosis; I24.8 Other forms of acute ischemic heart disease; E87.6 Hypokalemia; R26.2 Difficulty in walking, not elsewhere classified; E11.65 Type 2 diabetes mellitus with hyperglycemia; K21.9 Gastro-esophageal reflux disease without esophagitis; E61.1 Iron deficiency; E55.9 Vitamin D deficiency, unspecified; J43.9 Emphysema, unspecified; I48.0 Paroxysmal atrial fibrillation; E66.3 Overweight; E53.8 Deficiency of other specified B group vitamins; D64.9 Anemia, unspecified; I48.2 Chronic atrial fibrillation; J98.4 Other disorders of lung; R53.1 Weakness; F03.90 Unspecified dementia, unspecified severity, without behavioral disturbance, psychotic disturbance, mood disturbance, and anxiety; W18.30XA Fall on same level, unspecified, initial encounter; Y93.89 Activity, other specified; Y92.090 Kitchen in other non-institutional residence as the place of occurrence of the external cause; Y99.8 Other external cause status; Z88.2 Allergy status to sulfonamides; Z86.73 Personal history of transient ischemic attack (TIA), and cerebral infarction without residual deficits; I25.2 Old myocardial infarction; Z87.440 Personal history of urinary (tract) infections; Z95.5 Presence of coronary angioplasty implant and graft; Z90.710 Acquired absence of both cervix and uterus; Z82.49 Family history of ischemic heart disease and other diseases of the circulatory system; Z79.899 Other long term (current) drug therapy; Z68.28 Body mass index [BMI] 28.0-28.9, adult

== ENCOUNTER 2018-05-31 04:06 | Inpatient (IN) | payer MEDICARE, MEDICAID ==
[2018-05-31] VITALS (12 sets, daily range): BP systolic 126–160; BP diastolic 42–87
[~2018-05-31] VITALS: Ht 170.1 cm; Wt 74.0 kg
--- NOTE | ~2018-05-31 | EKG ---
[place], [place] ELECTROCARDIOGRAM REPORT NAME: PENG FRANCO UNIT #: [id number] ROOM: 503 DOCTOR: PATRICK DRAFT REPORT BIRTHDATE: [birth year] [facility] Test Date: 2018-05-31 Test Time: 04:09:54 Pat Name: PENG FRANCO Department: Room: 503 Gender: F Policy Adviser: : 1945 Requested By: JEREMY BERGMAN Order Number: [id number] Reading MD: Yoko Marcos MD Measurements Intervals [place] Rate: 75 P: 77 VA: 142 QRS: 53 QRSD: 93 T: 14 QT: 411 QTc: 460 Interpretive Statements Sinus rhythm Atrial premature complexes Minimal ST depression, lateral leads Compared to ECG 05/03/2018 07:18:52 Atrial premature complex(es) now present Ventricular premature complex(es) no longer present ST (T wave) deviation still present Electronically Signed On 06-01-2018 10:10:09 PDT by Yoko Marcos MD CM:EKGRPT:ELECTROCARDIOGRAM REPORT 0409 1010 JEREMY GALVAN DRAFT REPORT JEREMY BERGMAN DO
--- NOTE | ~2018-05-31 | PON ---
[place], [place] POST OPERATIVE PROGRESS NOTE NAME: PENG FRANCO UNIT #: [id number] STATUS: ADM IN SURGEON: JOHANNE LIRA MD ROOM: 503 DATE: 06/01/18 ATTENDING: LARISSA FERNÁNDEZ DO DATE OF : [birth year] CM:POSTOP DICT: [facility] [phone]
--- NOTE | ~2018-05-31 | O ---
[place], [place] OPERATIVE NOTE NAME: PENG FRANCO UNIT #: [id number] ROOM: 503 DOCTOR: SORAYA GUTIERREZ,JOHANNE BIRTHDATE: [birth year] DOS: 06/01/2018 PROCEDURE: Today's procedure part of investigation of anemia on aspirin and Eliquis is panendoscopy; no biopsy. PREMEDICATION: Propofol. SCOPE: Olympus forward-viewing gastroscope Q10 video. REPORT: After putting the patient in left lateral position and application of lubricant to the scope, the scope was introduced, thereafter under direct visualization advanced through the length of esophagus without difficulty. Esophagus, cervicothoracic distally carefully examined. No ulceration, no lesion seen. Gastric pouch was entered. Mild gastritis seen. No bleeding sign. Duodenal bulb, second and third part within normal limits. The patient extubated, tolerated the procedure well. IMPRESSION AND PLAN: Mild gastritis. No ulceration. Blood loss is most likely secondary to aspirin and Eliquis intake with antibody to blood for transfusion. PLAN AND DISCUSSION: Supportive transfusion and resumption of Eliquis in 2-3 days for her atrial fibrillation protection. Thank you very much indeed. JOHANNE LIRA MD CM:OPRECORD:OPERATIVE NOTE 1827 0042 JOHANNE LIRA MD 06/02/18 0041 interface
--- NOTE | ~2018-05-31 | POSTOPNOTE ---
[place], [place] POSTOPERATIVE PROGRESS NOTE NAME: PENG FRANCO UNIT #: [id number] ROOM: 503 DOCTOR: JOHANNE LIRA MD BIRTHDATE: [birth year] DATE: 06/01/18 GI NOTE PREOPERATIVE DIAGNOSIS: ANEMIA POSTOP UPPER GI PROC/FINDINGS: MILD GASTRITIS, NO ULCERATION, BLOOD LOSS LIKELY DUE TO ASPIRIN AND ELIQUIS UPPER GI PROCEDURE/SURGERY: EGD UPPER GI FINDINGS: MILD GASTRITIS, NO ULCERATION, BLOOD LOSS LIKELY DUE TO ASPIRIN AND ELIQUIS JOHANNE LIRA MD CM:POSTOPN 1857 130 JOHANNE LIRA MD 06/02/18 1304 JARVIS SARABIA MIS.R
--- NOTE | ~2018-05-31 | CON ---
[place], [place] REPORT OF CONSULTATION NAME: PENG FRANCO UNIT #: [id number] ROOM: 503 DOCTOR: SORAYA GUTIERREZJOHANNE BIRTHDATE: [birth year] DOS: 06/01/2018 HISTORY OF PRESENT ILLNESS: The patient has presented with profound anemia, undergoing investigation. Status post 2 units of packed cell transfusion. Stool guaiac positivity antibody to blood. Initial H and H of 8 and 28. Subsequent H and H has dropped to 6 and 23. The patient has been on Eliquis and aspirin. Electrolyte balance, liver function tests normal. BNP 2100. Chest x-ray, cardiomegaly with mild pulmonary edema and small pleural effusion. PAST MEDICAL HISTORY: CVA, congestive failure, coronary artery disease, AV malformation, atrial fibrillation, diabetes mellitus, myocardial infarction. PAST SURGICAL HISTORY: Hysterectomy, coronary artery stent, cataracts. SOCIAL HISTORY: Nonsmoker. Nonalcohol consumer. ALLERGIES: SULFA. MEDICATIONS: List reviewed, including Eliquis and aspirin. That has been placed on hold on. On the other hand, on ranitidine and pantoprazole and iron supplementation. REVIEW OF SYSTEMS: HEENT: Denies double vision or blurred vision. RESPIRATORY: Denies acute shortness of breath. CARDIOVASCULAR: Denies acute chest pain. DIGESTIVE SYSTEM: No hematemesis. No hematochezia. Guaiac positive. PHYSICAL EXAMINATION: VITAL SIGNS: Stable. HEENT: Benign. NECK: Supple. No thyromegaly. CHEST: Symmetric anatomy, equal expansion, COPD pattern. HEART: Normal sinus rhythm. No gallop. No murmur. ABDOMEN: Soft. No hepato-organomegaly. Bowel sounds present. EXTREMITIES: Pedal edema trace bilaterally. NEUROLOGIC: Alert. Slight cloudy in mentation as far as memory is concerned. IMPRESSION: 1. Profound anemia status post transfusion 2 units of packed cells, antibody positivity to blood. 2. Other adjunctive diagnoses are history of aspirin and Eliquis which could be influential in her anemia, cardiomegaly, pleural effusion, diabetes mellitus, gastroesophageal reflux disease, all have been recognized as dictated in past surgical and medical history including atrial fibrillation and dementia. PLAN AND DISCUSSION: We are going to proceed with panendoscopy. She does not need a colonoscopy since it has been done in the recent past. [place], [place] REPORT OF CONSULTATION NAME: PENG FRANCO UNIT #: [id number] ROOM: 503 DOCTOR: SORAYA GUTIERREZ,JOHANNE BIRTHDATE: [birth year] JOHANNE LIRA MD CM:CONSTR:REPORT OF CONSULTATION 1827 06/02/18 0034 interface
--- NOTE | ~2018-05-31 | EKG ---
[place], [place] ELECTROCARDIOGRAM REPORT NAME: PENG FRANCO UNIT #: [id number] ROOM: 503 DOCTOR: PATRICK DRAFT REPORT BIRTHDATE: [birth year] [facility] Test Date: 2018-05-31 Test Time: 06:25:56 Pat Name: PENG FRANCO Department: Room: 503 Gender: F De Icer Finisher: Ebonie Florence : 1945 Requested By: JEREMY BERGMAN Order Number: [id number] Reading MD: Yoko Marcos MD Measurements Intervals [place] Rate: 74 P: 58 SD: 148 QRS: 55 QRSD: 88 T: 96 QT: 427 QTc: 474 Interpretive Statements Sinus rhythm Low voltage, precordial leads Nonspecific T abnormalities, lateral leads Compared to ECG 05/03/2018 07:18:52 Low QRS voltage now present T-wave abnormality now present Ventricular premature complex(es) no longer present ST (T wave) deviation no longer present Electronically Signed On 06-01-2018 10:11:27 PDT by Yoko Marcos MD CM:EKGRPT:ELECTROCARDIOGRAM REPORT 0625 1011 JEREMY GALVAN DRAFT REPORT JEREMY BERGMAN DO
--- NOTE | ~2018-05-31 | EKG ---
[place], [place] ELECTROCARDIOGRAM REPORT NAME: PENG FRANCO UNIT #: [id number] ROOM: 503 DOCTOR: PATRICK DRAFT REPORT BIRTHDATE: [birth year] [facility] Test Date: 2018-05-31 Test Time: 10:32:07 Pat Name: PENG FRANCO Department: Room: 503 Gender: F Film Waxer: Jacqueline Florence : 1945 Requested By: JEREMY BERGMAN Order Number: [id number] Reading MD: Yoko Marcos MD Measurements Intervals [place] Rate: 85 P: 89 DC: 138 QRS: 49 QRSD: 89 T: -24 QT: 386 QTc: 459 Interpretive Statements Sinus rhythm Atrial premature complex Low voltage, precordial leads Minimal ST depression, inferior leads Compared to ECG 05/03/2018 07:18:52 Atrial premature complex(es) now present Low QRS voltage now present Ventricular premature complex(es) no longer present ST (T wave) deviation still present Electronically Signed On 06-01-2018 10:13:10 PDT by Yoko Marcos MD CM:EKGRPT:ELECTROCARDIOGRAM REPORT 1032 1013 JEREMY GALVAN DRAFT REPORT JEREMY BERGMAN DO
[~2018-05-31 04:06] MED LIST changes: +PRAVASTATIN SOD40 MG PO; +PREDNISONE10 MG PO; +VITAMIN D22000 UNIT PO; +ZITHROMAX250 MG PO
[2018-05-31 04:21] LABS: BASO % 0.3 % (0.0-1.0); EOS # 0.2 10*3/uL (0.0-0.4); EOS % 2.5 % (1.0-4.0); HEMOGLOBIN 6.4 g/dl (12.0-16.0); LYMPH # 1.5 10*3/uL (1.3-4.4); LYMPH % 25.5 % (27.0-41.0); MEAN CELL VOLUME 93.5 fl (81.0-99.0); MEAN CORPUSCULAR HGB CONC 27.8 g/dl (33.0-37.0); MEAN PLATELET VOLUME 9.2 fl (9.6-12.3); MONO # 0.7 10*3/uL (0.1-1.0); NEUT # 3.5 10*3/uL (2.3-7.9); NEUT % 59.4 % (47.0-73.0); PLATELET COUNT AUTOMATED 239 10*3/uL (130-400); RED BLOOD COUNT 2.46 10*6/uL (4.10-5.10); RED CELL DISTRI WIDTH 15.9 % (0-14.5); WHITE BLOOD COUNT 5.9 10*3/uL (4.8-10.8)
[2018-05-31 04:38] LABS: ALBUMIN 2.6 gm/dl (3.1-4.5); ALKALINE PHOSPHATASE 90 U/L (45-117); BUN 33 mg/dl (7-24); CHLORIDE 110 mmol/L (98-107); CREATININE 0.95 mg/dL (0.55-1.02); POTASSIUM 4.3 mmol/L (3.5-5.1); SGOT/AST 18 IU/L (3-35); SGPT/ALT 15 U/L (12-78); SODIUM 141 mmol/L (136-145); TOTAL PROTEIN 6.4 gm/dL (6.4-8.2)
[2018-05-31 04:39] LABS: TROPONIN I < 0.015 ng/ml (<0.045)
[2018-05-31 04:41] LABS: ACT PARTIAL THROMBO TIME 23.7 SECONDS (20.8-31.5); INTERNATIONAL NORM RATIO 1.1 (2.0-3.5)
--- NOTE | 2018-05-31 06:15 | NUR ---
CUSTOMS IMPORT SPECIALIST CALLED FOR BED ASSIGNMENT. DID NOT RECEIVE AN ASSIGNMENT AT THIS TIME D/T CIRCUMSTANCES ON THE FLOOR
--- NOTE | 2018-05-31 06:51 | NUR ---
NURSING INVESTIGATIVE SHOPPER CALLED TO INFORM THAT WE WILL NOT RECEIVE A BED ASSIGNMENT FOR THIS PATIENT UNTIL AFTER 0700
--- NOTE | 2018-05-31 07:50 | NUR ---
A 73, admitted to 5E, under the services of LARISSA Gale DO with a diagnosis of BLOOD TRANSFUSION. Chief complaint is SHORTNESS OF BREATH. Patient arrived via stretcher from ER. Monitor applied. Initial assessment completed. Vital signs taken and recorded. LARISSA GALE DO notified of admission to the unit. Orders received. See assessment for past medical history, medications and allergies. Patient and/or family oriented to unit. [address] visitation policy reviewed. Clothing/patient valuable form completed. THELMA PABLO
--- NOTE | 2018-05-31 08:48 | NUR ---
Called [facility] for updated med list but they are closed. Patient and daughter are not familiar with prescribed medications.
--- NOTE | 2018-05-31 10:12 | NUR ---
[facility] is not open. Contacted patients daughter, Celina Drake RN to review and update patients med list.
[2018-05-31] MEDS ORDERED: ASPIRIN CHILDRE81 MG PO (10:14)
--- NOTE | 2018-05-31 12:54 | NUR ---
Spoke with Dr. Lindsay regarding consult for anemia, suspect GI bleed. Reviewed patients history, labs, and medications. Per Dr. Lindsay hold Eliquis and Aspirin, transfuse 2 units, H&H in the morning, Protonix 40mg Q Daily.
--- NOTE | 2018-05-31 18:00 | NUR ---
Patient refused cle[place] vasquez.
--- NOTE | 2018-05-31 18:36 | NUR ---
Blood transfusion started at 60ml/hr. See vitals.
--- NOTE | 2018-05-31 18:55 | NUR ---
Patient tolerating infusion well. Rate increased to 100ml/hr. See vitals.
--- NOTE | 2018-05-31 19:01 | NUR ---
Spoke with Dr. Lindsay. Reviewed labs, medication, diet and patient history. Per physician, patient on clear liquid diet for breakfast and NPO for EGD. Nursing groundskeeper supervisor notified see new orders.
[2018-06-01] VITALS (7 sets, daily range): BP systolic 100–154; BP diastolic 33–74
--- NOTE | 2018-06-01 02:25 | NUR ---
24 HR chart check completed.
[2018-06-01 06:47] LABS: BASO % 0.5 % (0.0-1.0); EOS # 0.1 10*3/uL (0.0-0.4); EOS % 2.5 % (1.0-4.0); HEMOGLOBIN 8.3 g/dl (12.0-16.0); LYMPH # 1.2 10*3/uL (1.3-4.4); LYMPH % 20.5 % (27.0-41.0); MEAN CORPUSCULAR HGB 26.8 pg (27.0-31.0); MEAN CORPUSCULAR HGB CONC 29.6 g/dl (33.0-37.0); MEAN PLATELET VOLUME 9.8 fl (9.6-12.3); MONO # 0.7 10*3/uL (0.1-1.0); MONO % 11.6 % (3.0-9.0); NEUT # 3.7 10*3/uL (2.3-7.9); NEUT % 64.5 % (47.0-73.0); PLATELET COUNT AUTOMATED 243 10*3/uL (130-400); RED CELL DISTRI WIDTH 15.8 % (0-14.5); WHITE BLOOD COUNT 5.7 10*3/uL (4.8-10.8)
[2018-06-01 06:52] LABS: MEAN CELL VOLUME 90.3 fl (81.0-99.0)
[2018-06-01 07:10] LABS: BUN 25 mg/dl (7-24); CHLORIDE 107 mmol/L (98-107); CREATININE 0.86 mg/dL (0.55-1.02); PHOSPHOROUS 4.6 mg/dL (2.5-4.9); POTASSIUM 3.9 mmol/L (3.5-5.1); SODIUM 140 mmol/L (136-145)
--- NOTE | 2018-06-01 08:36 | NUR ---
Notified Dr. Lindsay of patients Hgb & Hct. No new orders physician to follow up at patients bedside.
--- NOTE | 2018-06-01 11:20 | NUR ---
PHYSICAL THERAPY Patient evaluated on 5, full evaluation to follow. Continue with PT as per plan of care with fall, 02 and acute debility precautions. Home with family support, as prior, and home health RN and PT recommended. PAtient is moderate complexity via chart review, tests and evaluation: [id number]. Thank you for this referral. Xuan Schwartz,PT
--- NOTE | 2018-06-01 12:08 | NUR ---
Third Loader in to talk to patient. Patient states lives at HOME with ALONE. There are NO steps in the home. Physician: KIM [facility]acy: [facility] Home health services: [facility] Patient's level of ADLs: MINIMAL ASSIST Patient has working utilities: YES DME: [facility] Follow-up physician's appointment after d/c: WILL BE MADE BY HOSPITALIST NURSE DIRECTOR ON DISCHARGE Does patient want to access PORTAL?: NO Discharge plan PT STATES SHE LIVES AT HOME ALONE AND IS MOSTLY INDEPENDENT IN HER CARE. STATES SHE HAS [facility], AND ALSO THREE DAUGHTERS WHO LIVE CLOSE AND HELP HER IF NEEDED. PT DENIES ANY OTHER NEEDS AT HOME AT THIS TIME. WILL CONTINUE TO FOLLOW.. CELE WORTHY
--- NOTE | 2018-06-01 13:39 | NUR ---
SW stop to speak with pt regarding a discharge planning. Pt lives alone but her dtrs live in the same area. Pt is only getting an hour 2days/wk. When asked if she could use more time pt said yes if she was allowed. SW will speak with someone from [facility] to see if that is possible. DUANE Onofre REVENUE INVESTIGATOR,LABORATORY APPARATUS GLASS GRINDER
--- NOTE | 2018-06-01 15:37 | NUR ---
Mary was assessed by occupational therapy this afternoon. She is able to complete bedmobility independently. She is able to complete lower body dressing, sinkside grooming, and toileting independently. She wears O2 at home and is able to return demo of pursed lip breathing to prevent SOB. No further OT is recommended at this time since patient is at baseline with her ADL's. Nunu Nunez OTR/Gabriella
--- NOTE | 2018-06-01 15:45 | NUR ---
BACK TO TALK WITH PT ABOUT SNF STAY. PT AGREES NOW. REQUEST [facility]. LISA NUR NOTIFIED AND WILL SEND REFERRAL.
--- NOTE | 2018-06-01 15:58 | NUR ---
LISA made a referral to [facility] for [facility] as requested by pt. All necessary information faxed over to [facility]. [facility] notified of referral by ciara. DUANE ALVARADO MSW,DONNA
--- NOTE | 2018-06-01 20:00 | NUR ---
PATIENT HAS NO COMPLAINTS AT THIS TIME. STATES SHE FEELS GOOD SINCE EATING. IS HOPING TO GO HOME SOON. PATIENT LEFT WITH CALL LIGHT IN REACH.
--- NOTE | 2018-06-01 23:40 | NUR ---
24 HR chart check completed.
[2018-06-02] VITALS: BP 115/44
[2018-06-02 06:25] LABS: BASO % 0.5 % (0.0-1.0); EOS # 0.2 10*3/uL (0.0-0.4); EOS % 3.1 % (1.0-4.0); HEMATOCRIT 28.5 % (37.0-47.0); HEMOGLOBIN 8.4 g/dl (12.0-16.0); LYMPH # 1.4 10*3/uL (1.3-4.4); LYMPH % 23.9 % (27.0-41.0); MEAN CELL VOLUME 89.3 fl (81.0-99.0); MEAN CORPUSCULAR HGB 26.3 pg (27.0-31.0); MEAN CORPUSCULAR HGB CONC 29.5 g/dl (33.0-37.0); MEAN PLATELET VOLUME 9.6 fl (9.6-12.3); MONO # 0.8 10*3/uL (0.1-1.0); MONO % 14.4 % (3.0-9.0); NEUT # 3.4 10*3/uL (2.3-7.9); NEUT % 57.8 % (47.0-73.0); PLATELET COUNT AUTOMATED 256 10*3/uL (130-400); RED BLOOD COUNT 3.19 10*6/uL (4.10-5.10); RED CELL DISTRI WIDTH 15.4 % (0-14.5); WHITE BLOOD COUNT 5.9 10*3/uL (4.8-10.8)
[2018-06-02 06:59] LABS: BUN 22 mg/dl (7-24); CHLORIDE 105 mmol/L (98-107); CREATININE 1.07 mg/dL (0.55-1.02); POTASSIUM 3.9 mmol/L (3.5-5.1); SODIUM 140 mmol/L (136-145)
[2018-06-02 07:40] VITALS: BP 110/52
[2018-06-02 08:00] VITALS: BP 117/46
--- NOTE | 2018-06-02 10:09 | NUR ---
SW heard back from Anastasia there are no beds at [facility]. Pt's medicare will not pay for [place] at [facility]. However she coud to to [facility] but would only have 20 days. [facility] is going to speak with the family and administration. DUANE Onofre SOLAR FIELD INSTALLATION CREW MEMBER,PEST CONTROL CHEMICAL TECHNICIAN
--- NOTE | 2018-06-02 10:17 | NUR ---
PHYSICAL THERAPY infromed consent given pt identified by name and . pt presented supine in bed with supplemental O2 off, spO2 95% room air.pt states " I have oxygen at home and I wear it when I feel like I need it. Supine to sit SBA. STS and stand to sit x2 trials CGA. Static standing balance without AD 1min SBa no LOB presented. Staggered stance each foot in front 30sec x2 SBA, pt able to correct self with LOB. Walked 100ft x4 standing rests in between, at each rest spO2 never fell below 92% room air. Ended treatment pt sitting EOB spO2 94% room air, call light and belongings in reach. 1:1 treatment with WICKER MOLDED CANDLES 15min. DELBERT ZAPIEN WICKER MOLDED CANDLES
[2018-06-02 12:00] VITALS: BP 115/58
--- NOTE | 2018-06-02 14:26 | NUR ---
PHYSICAL THERAPY Pt completed seated ankle pumps, laq, hip flexin, hip abduction, hip adduction x 15 reps on each. pt educated on proper speed and rom. Pt transfers sit-std sbax1. pt educated on push off and reach back. pt ambulated 100 feet x 1 minax1 wheeled walker and cueing for posture needed. pt was seen for 24 minutes. Reva [id number]
[2018-06-02 16:00] VITALS: BP 112/65; BP 120/66
--- NOTE | 2018-06-02 16:42 | NUR ---
LISA completed the PASSRR and submitted it to [facility]. LISA ciara Anastasia to let her know that the PASSRR is completed and submitted. DUANE Onofre APPAREL MANAGER,SCANNING CLERK
--- NOTE | 2018-06-02 16:44 | NUR ---
SW heard from Anastasia that pt has a bed at [facility], PASSRR was completed for [facility]. DUANE Onofre QUALITY CONTROL ENGINEER, BIOFUELS PRODUCT DEVELOPMENT MANAGER
--- NOTE | 2018-06-02 19:30 | NUR ---
BEDSIDE REPORT RECIEVED FROM DAY SHIFT RN. PT IS RESTING IN BED AT THIS TIME AND DENIES ANY PAIN OR DISCOMFORT. RESPIRATIONS ARE EASY AND NONLABORED ON ROOM AIR. DAUGHTER IS AT THE BEDSIDE. PT DENIES ANY NEEDS AT THIS TIME. WILL CONTINUE TO MONITOR.
[2018-06-02 20:00] VITALS: BP 125/34
[2018-06-03] VITALS: BP 102/46
--- NOTE | 2018-06-03 05:29 | NUR ---
TYLENOL REQUESTED FOR BACK PAIN. WILL MONITOR FOR EFFECTIVENESS.
[2018-06-03 06:52] LABS: CREATININE 1.24 mg/dL (0.55-1.02); POTASSIUM 4.3 mmol/L (3.5-5.1)
[2018-06-03 08:00] VITALS: BP 108/56
--- NOTE | 2018-06-03 10:19 | NUR ---
Spoke with James, patients daughter and she will be here after work to transfer patient to [place]. She is expected about 1330 this afternoon.
--- NOTE | 2018-06-03 13:40 | NUR ---
SW notified [facility] that pt's dtr will pick her up at 1:30 and bring her to [facility]. DUANE thompson SCREEN MAKING SUPERVISOR,NIGHT TIME NANNY
--- NOTE | 2018-06-03 14:25 | NUR ---
Discharge instructions reviewed with patient/family. Patient receptive and verbalizes understanding. Follow-up care arranged. Written instructions given to patient/family. Patient was wheeled from unit by staff member and family. Patients daughter was educated on the start date of Eliquis and weekly blood work ordered. Patients daughter drove her to [facility] for continued therapy. All personal belongings were accounted for. THELMA PABLO J
--- NOTE | 2018-06-04 07:33 | NUR ---
PHYSICAL THERAPY CO-SIGN I approve of the Phyical Therapy notes written above. ARCELIA MCNEIL PT
[2018-08-12] MEDS ORDERED: BUMETANIDE1 MG PO (10:55)
== END 2018-06-03 14:47 | disposition other institution (70) | DRG 291 ==
LOC: ED 04:06 → EDHOLD 05:44 → 5E 05:44
PROVIDERS: Emergency Medicine; Family Medicine; Student in an Organized Health Care Education/Training Program; ADMIT Internal Medicine
PROC: 30233N1 Transfusion of Nonautologous Red Blood Cells into Peripheral Vein, Percutaneous Approach (ICD-10-PCS; principal; 2018-05-31)
PROC: 0DJ08ZZ Inspection of Upper Intestinal Tract, Via Natural or Artificial Opening Endoscopic (ICD-10-PCS; 2018-06-01)
DX: I50.33 Acute on chronic diastolic (congestive) heart failure (principal); E43 Unspecified severe protein-calorie malnutrition; R65.10 Systemic inflammatory response syndrome (SIRS) of non-infectious origin without acute organ dysfunction; D64.9 Anemia, unspecified; K29.70 Gastritis, unspecified, without bleeding; I25.10 Atherosclerotic heart disease of native coronary artery without angina pectoris; E11.65 Type 2 diabetes mellitus with hyperglycemia; E83.41 Hypermagnesemia; E87.8 Other disorders of electrolyte and fluid balance, not elsewhere classified; E53.8 Deficiency of other specified B group vitamins; I48.0 Paroxysmal atrial fibrillation; G30.9 Alzheimer's disease, unspecified; G47.33 Obstructive sleep apnea (adult) (pediatric); F02.80 Dementia in other diseases classified elsewhere, unspecified severity, without behavioral disturbance, psychotic disturbance, mood disturbance, and anxiety; E66.3 Overweight; K21.9 Gastro-esophageal reflux disease without esophagitis; Z86.73 Personal history of transient ischemic attack (TIA), and cerebral infarction without residual deficits; Z90.710 Acquired absence of both cervix and uterus; Z88.2 Allergy status to sulfonamides; Z95.5 Presence of coronary angioplasty implant and graft; Z98.41 Cataract extraction status, right eye; Z98.42 Cataract extraction status, left eye; Z82.49 Family history of ischemic heart disease and other diseases of the circulatory system; Z79.82 Long term (current) use of aspirin; Z91.14 Patient's other noncompliance with medication regimen; Z99.81 Dependence on supplemental oxygen; Z68.27 Body mass index [BMI] 27.0-27.9, adult

== ENCOUNTER 2018-06-18 14:50 | Inpatient (IN) | payer MEDICARE, MEDICAID ==
[2018-06-18] VITALS (7 sets, daily range): BP systolic 129–156; BP diastolic 58–87
[~2018-06-18] VITALS: Ht 170.2 cm; Wt 84.8 kg
--- NOTE | ~2018-06-18 | O ---
[place], [place] OPERATIVE NOTE NAME: PENG FRANCO UNIT #: [id number] ROOM: 512 DOCTOR: JOHANNE LIRA MD BIRTHDATE: [birth year] DOS: INDICATIONS: This is a 73-year-old patient who was presented with a chief complaint of epigastric distress, anemia, drop in H and H, undergoing the investigation status post transfusion. The patient has been on Eliquis and aspirin. PROCEDURE: Today's procedure part of investigation is panendoscopy plus biopsy. PREMEDICATION: Propofol. SCOPE: Olympus forward-viewing gastroscope Q10 video. REPORT: After putting the patient in left lateral position and application of lubricant to the scope, scope was introduced. Thereafter, under direct visualization, advanced through the length of esophagus without difficulty. Esophagus, cervical, thoracic distally carefully examined 1+ esophageal varicosity valve, thoracic esophagus extends the esophagogastric junction area. This was photographed. Gastric pouch was entered. A small hiatal hernia was noticed. Gastritis of mild degree noticed and duodenitis. After entry of pyloric ring appreciated, photograph. The patient was gradually extubated and tolerated the procedure well. IMPRESSION: Esophageal 1+ varicosity, small 1.5 cm hiatal hernia, very mild gastritis, duodenitis, status post antral biopsy. PLAN AND DISCUSSION: Due to the presence of esophageal varicosity possibility of liver pathology is going to be addressed with a sonographic study of the liver. Fatty infiltration and fibrosis beyond, beginning of portal hypertension versus benign single vessel varicosity at one stage. Thank you very much indeed for your kind referral. [place], [place] OPERATIVE NOTE NAME: PENG FRANCO UNIT #: [id number] ROOM: 512 DOCTOR: JOHANNE LIRA MD BIRTHDATE: [birth year] JOHANNE LIRA MD CM:OPRECORD:OPERATIVE NOTE 1044 1332 JOHANNE LIRA MD 07/01/18 0753 interface
--- NOTE | ~2018-06-18 | CON ---
[place], [place] REPORT OF CONSULTATION NAME: PENG FRANCO UNIT #: [id number] ROOM: 512 DOCTOR: SORAYA GUTIERREZJOHANNE BIRTHDATE: [birth year] DOS: 06/19/2018 GASTROENDOSCOPIC CONSULTATION REPORT HISTORY OF PRESENT ILLNESS: The patient is 73 years old with dementia, who has presented with tiredness, paleness and investigated further and was found to have hemoglobin of 7 and had to be admitted for definitive reassessment and concern about possible source of anemia. However, we know by history that the patient has been on Eliquis and aspirin. This could be the culprit in drop in H and H; however, on the other hand, the patient on ranitidine 1 at bedtime and also she has been on iron supplementation and folic acid. The patient with dementia. She cannot give me much history. She is pleasantly forgetful. She does not recall why she is here. The patient has been seen in the office 2 days ago. PAST MEDICAL HISTORY: Atrial fibrillation, diabetes mellitus, congestive heart failure, cerebrovascular accident, profound anemia, status post transfusion, and coronary artery disease. PAST SURGICAL HISTORY: Cataract, hysterectomy, coronary artery stent, knee surgery and wrist repair. SOCIAL HISTORY: Nonsmoker, nonalcohol consumer. FAMILY HISTORY: Unremarkable. ALLERGIES: SULFA PRODUCTS. MEDICATIONS: List has been reviewed. REVIEW OF SYSTEMS: HEENT: Denies double vision or blurred vision. RESPIRATORY: Denies shortness of breath. CARDIOVASCULAR: Denies acute chest pain. DIGESTIVE SYSTEM: No hematemesis, no hematochezia. PHYSICAL EXAMINATION: VITAL SIGNS: Relatively pale patient, pleasant, nontoxic. HEENT: Head normocephalic, nontraumatic. Eyes: Pupils round, reactive. Sclerae nonicteric. Mouth and buccal mucosa benign. NECK: Supple, no thyromegaly, no cervical lymphadenopathy. CHEST: Symmetric anatomy, equal expansion. No wheeze, no rhonchi. HEART: Normal sinus rhythm, no gallop, no murmur. ABDOMEN: Soft. No hepato-organomegaly. Bowel sounds present. EXTREMITIES: No cyanosis, no pedal edema. NEUROLOGIC: Alert and slow. LABORATORY DATA: Labs reviewed. Records reviewed. Anemia is noticed. The patient is status post transfusion. We have reviewed the blood count, the admitting H and H has been 7 and 25, platelets 195. Comprehensive metabolic [place], [place] REPORT OF CONSULTATION NAME: PENG FRANCO UNIT #: [id number] ROOM: 512 DOCTOR: SORAYA GUTIERREZ,JOHANNE BIRTHDATE: [birth year] panel, electrolyte balance, liver function test normal. CBC differential was reassessed. Improvement of H and H post transfusion 9 and 31 seen. Comprehensive metabolic panel: Glucose of 148. Labs, otherwise chemistry normal. IMPRESSION: Anemia, history of Eliquis and aspirin, history of previous assessment as outpatient and known recent endoscopy and colonoscopy has been reviewed. We are most likely losing blood because of antiplatelet and anticoagulant; however, we are going to recheck her to assure and after EGD and transfusion, we may be able to follow up as outpatient and her pill camera can be organized as outpatient. JOHANNE LIRA MD CM:CONSTR:REPORT OF CONSULTATION 1005 06/20/18 0106 interface
[~2018-06-18 14:50] MED LIST changes: +ASPIRIN CHILDRE81 MG PO
--- NOTE | 2018-06-18 16:53 | NUR ---
A 73, admitted to , under the services of JED Jurado DO with a diagnosis of ANEMIA. Chief complaint is ANEMIA. Patient arrived via wheel chair from ER. Monitor applied. Initial assessment completed. Vital signs taken and recorded. JED JURADO DO notified of admission to the unit. Orders received. See assessment for past medical history, medications and allergies. Patient and/or family oriented to unit. [facility] Clothing/patient valuable form completed. WINSTON DOTSON
[2018-06-18] MEDS ORDERED: SALINE NASAL SP88 ML NAS (17:34)
--- NOTE | 2018-06-18 18:10 | NUR ---
Informed consent obtained from patient for Blood transfussion by Dr. AGGARWAL PER PATIENT. Patient identified by arm band. Vital signs recorded. Blood unit number verified by 2 R.N.'s. I.V. site satisfactory. Unit 1 started at a rate OF 100ML/HR with Normal Saline. WINSTON DOTSON
--- NOTE | 2018-06-18 18:25 | NUR ---
VS STABLE. PT TOLERATING INFUSION WELL.
--- NOTE | 2018-06-18 18:29 | NUR ---
BLOOD TRANSFUSION RATE INCREASED TO 120CC/HR. PT TOLERATING WELL
--- NOTE | 2018-06-18 19:14 | NUR ---
VS STABLE. PT TOLERATING BLOOD TRANSFUSION WELL AT THIS TIME.
--- NOTE | 2018-06-18 20:41 | NUR ---
DR. PLATT CONTACTED REGARDING HOME MEDICATION CONTINUATION.
--- NOTE | 2018-06-18 20:54 | NUR ---
PATIENT IS RESTING IN BED WITH EASY AND REGULAR RESPERS ON ROOM AIR. ASSESSMENT IS COMPLETE WITH NO C/O OR S/S OF DISTRESS NOTED AT THIS TIME. BED IS LOW, LOCKED, AND CALL LIGHT IS WITHIN REACH. BLOOD TRANSFUSION COMPLETE AT THIS TIME WITH NO REACTIONS NOTED, AND 2200 MEDICATIONS GIVEN WELL. SEE SHIFT ASSESSMENT.
[2018-06-19] VITALS (9 sets, daily range): BP systolic 102–140; BP diastolic 52–77
--- NOTE | 2018-06-19 01:40 | NUR ---
PRN TYLENOL GIVEN FOR C/O NECK PAIN R/T ARTHRITIS PER PATIENT. CALL LIGHT IS WITHIN REACH WILL MONITOR EFFECT.
--- NOTE | 2018-06-19 02:30 | NUR ---
PRN TYLENOL SEEMS EFFECTIVE, PATIENT IS SLEEPING WITH EASY AND REGULAR RESPSERS ON ROOM AIR.
--- NOTE | 2018-06-19 04:00 | NUR ---
PATIENT IS SLEEPING WITH EASY AND REGULAR RESPERS ON ROOM AIR. CALL LIGHT IS WITHIN REACH WILL MONITOR.
[2018-06-19 06:26] LABS: BASO % 0.4 % (0.0-1.0); EOS # 0.1 10*3/uL (0.0-0.4); EOS % 2.6 % (1.0-4.0); HEMATOCRIT 31.4 % (37.0-47.0); LYMPH # 1.6 10*3/uL (1.3-4.4); LYMPH % 29.2 % (27.0-41.0); MEAN CELL VOLUME 92.1 fl (81.0-99.0); MEAN CORPUSCULAR HGB 27.9 pg (27.0-31.0); MEAN CORPUSCULAR HGB CONC 30.3 g/dl (33.0-37.0); MEAN PLATELET VOLUME 10.6 fl (9.6-12.3); MONO # 0.8 10*3/uL (0.1-1.0); MONO % 15.6 % (3.0-9.0); NEUT # 2.8 10*3/uL (2.3-7.9); PLATELET COUNT AUTOMATED 224 10*3/uL (130-400); RED BLOOD COUNT 3.41 10*6/uL (4.10-5.10); RED CELL DISTRI WIDTH 16.7 % (0-14.5); WHITE BLOOD COUNT 5.4 10*3/uL (4.8-10.8)
[2018-06-19 06:33] LABS: HEMOGLOBIN 9.5 g/dl (12.0-16.0)
[2018-06-19 06:47] LABS: ALBUMIN 2.9 gm/dl (3.1-4.5); CREATININE 1.1 mg/dL (0.55-1.02); PHOSPHOROUS 4.1 mg/dL (2.5-4.9); POTASSIUM 3.7 mmol/L (3.5-5.1); TOTAL PROTEIN 6.8 gm/dL (6.4-8.2)
--- NOTE | 2018-06-19 08:25 | NUR ---
Patient comes in from [facility] short term skilled. Ok to return when medically stable for discharge.
--- NOTE | 2018-06-19 09:12 | NUR ---
PT OFF FLOOR TO OR VIA BED FOR EGD WITH DR LIRA.
--- NOTE | 2018-06-19 09:30 | NUR ---
PT OUT OF ROOM FOR EGD. WILL REVISIT.
--- NOTE | 2018-06-19 10:15 | NUR ---
PHYSICAL THERAPY PAtient at EGD. Will attempt at a later time or date. Thank you for this referral. Xuan Schwartz,PT
--- NOTE | 2018-06-19 10:58 | NUR ---
REPORT RECIEVED FROM OR,ORDERSRECIEVED FROM DR. LIRA.
--- NOTE | 2018-06-19 11:13 | NUR ---
PT RETURNED TO FLOOR FROM OR.
--- NOTE | 2018-06-19 17:00 | NUR ---
PHYSICAL THERAPY Patient evaluated on 5, full evaluation to follow. Continue with PT as per plan of care with fall and acute debility precautions. Will require return to SNF. PAtient is moderate complexity via chart review, tests and evaluation: 29893. Thank you for this referral. Xuan Schwartz,PT
--- NOTE | 2018-06-19 21:24 | NUR ---
PT C/O HEADACHE. TYLENOL 650 MG PO GIVEN AT THIS TIME. WILL MONITOR FOR EFFECTIVENESS. CALL LIGHT IN REACH, SAFETY MEASURES IN PLACE.
--- NOTE | 2018-06-19 22:24 | NUR ---
PT STATES THAT TYLENOL IS EFFECTIVE.
[2018-06-20] VITALS: BP 117/58
--- NOTE | 2018-06-20 03:01 | NUR ---
24 HR chart check completed.
[2018-06-20 06:29] LABS: CREATININE 1.12 mg/dL (0.55-1.02); POTASSIUM 3.4 mmol/L (3.5-5.1)
[2018-06-20 06:30] LABS: BASO % 0.2 % (0.0-1.0); EOS # 0.2 10*3/uL (0.0-0.4); EOS % 3.3 % (1.0-4.0); HEMATOCRIT 29.5 % (37.0-47.0); HEMOGLOBIN 8.7 g/dl (12.0-16.0); LYMPH # 1.3 10*3/uL (1.3-4.4); MEAN CELL VOLUME 92.8 fl (81.0-99.0); MEAN CORPUSCULAR HGB 27.4 pg (27.0-31.0); MEAN CORPUSCULAR HGB CONC 29.5 g/dl (33.0-37.0); MEAN PLATELET VOLUME 10.5 fl (9.6-12.3); MONO # 0.8 10*3/uL (0.1-1.0); MONO % 17.9 % (3.0-9.0); NEUT # 2.2 10*3/uL (2.3-7.9); NEUT % 49.4 % (47.0-73.0); PLATELET COUNT AUTOMATED 202 10*3/uL (130-400); RED BLOOD COUNT 3.18 10*6/uL (4.10-5.10); RED CELL DISTRI WIDTH 16.5 % (0-14.5); WHITE BLOOD COUNT 4.5 10*3/uL (4.8-10.8)
[2018-06-20 12:00] VITALS: BP 127/48
[2018-06-20 16:00] VITALS: BP 145/74
[2018-06-20 20:00] VITALS: BP 133/54
[2018-06-21] VITALS: BP 110/70
--- NOTE | 2018-06-21 04:40 | NUR ---
PATIENT SITTING UP ON SIDE OF BED CRYING SAYING HER NECKLACE IS MISSING. LOOKED UNDER AND AROUND BED AND IN BLANKETS. UNABLE TO FIND. SAID IT IS AN CARLOS NECKLACE AND SHE DOESN'T KNOW WHAT HAPPENED TO IT. WILL SEE IF DAUGHTER TOOK IT HOME WITH HER AND FILL REPORT OUT.
[2018-06-21 06:14] LABS: BASO % 0.2 % (0.0-1.0); EOS # 0.1 10*3/uL (0.0-0.4); EOS % 2.8 % (1.0-4.0); HEMATOCRIT 30.9 % (37.0-47.0); HEMOGLOBIN 9.2 g/dl (12.0-16.0); LYMPH # 1.2 10*3/uL (1.3-4.4); LYMPH % 24.6 % (27.0-41.0); MEAN CELL VOLUME 92.8 fl (81.0-99.0); MEAN CORPUSCULAR HGB 27.6 pg (27.0-31.0); MEAN CORPUSCULAR HGB CONC 29.8 g/dl (33.0-37.0); MEAN PLATELET VOLUME 10.4 fl (9.6-12.3); MONO # 0.8 10*3/uL (0.1-1.0); MONO % 15.6 % (3.0-9.0); NEUT # 2.8 10*3/uL (2.3-7.9); NEUT % 56.6 % (47.0-73.0); PLATELET COUNT AUTOMATED 201 10*3/uL (130-400); RED BLOOD COUNT 3.33 10*6/uL (4.10-5.10); RED CELL DISTRI WIDTH 16.4 % (0-14.5)
[2018-06-21 06:43] LABS: CREATININE 1.1 mg/dL (0.55-1.02); POTASSIUM 3.4 mmol/L (3.5-5.1)
[2018-06-21 12:00] VITALS: BP 143/71
[2018-06-21 16:00] VITALS: BP 136/78
--- NOTE | 2018-06-21 16:45 | NUR ---
PT MEDICATED WITH TYLENOL FOR C/O SORE THROAT PAIN.
[2018-06-21 20:00] VITALS: BP 122/53
[2018-06-22] VITALS: BP 128/47
[2018-06-22 06:56] LABS: BASO % 0.2 % (0.0-1.0); EOS # 0.2 10*3/uL (0.0-0.4); EOS % 2.6 % (1.0-4.0); HEMATOCRIT 31.3 % (37.0-47.0); HEMOGLOBIN 9.4 g/dl (12.0-16.0); LYMPH # 1.1 10*3/uL (1.3-4.4); LYMPH % 18.7 % (27.0-41.0); MEAN CELL VOLUME 93.4 fl (81.0-99.0); MEAN CORPUSCULAR HGB 28.1 pg (27.0-31.0); MEAN PLATELET VOLUME 10.5 fl (9.6-12.3); MONO # 0.8 10*3/uL (0.1-1.0); MONO % 13.6 % (3.0-9.0); NEUT # 3.8 10*3/uL (2.3-7.9); NEUT % 64.7 % (47.0-73.0); PLATELET COUNT AUTOMATED 196 10*3/uL (130-400); RED BLOOD COUNT 3.35 10*6/uL (4.10-5.10); RED CELL DISTRI WIDTH 16.3 % (0-14.5); WHITE BLOOD COUNT 5.9 10*3/uL (4.8-10.8)
[2018-06-22 07:30] LABS: POTASSIUM 4.2 mmol/L (3.5-5.1)
[2018-06-22 07:35] LABS: CREATININE 1.2 mg/dL (0.55-1.02)
--- NOTE | 2018-06-22 09:03 | NUR ---
PT IS SHORT TERM AT [facility] AND CAN RETURN WHEN MEDICALLY STABLE.
--- NOTE | 2018-06-22 09:33 | NUR ---
Patient is short term at [facility] and ok to return when medically stable for discharge.
--- NOTE | 2018-06-22 10:40 | NUR ---
PHYSICAL THERAPY Patient seen this am 1:1 for therapy visit and was sitting up in bedside chair with continuos O2-2L via NC upon therapist arrival. Patient was very pleasant this morning voicing no new c/o's at this time. Patient recorded SpO2 98%, HR 72 bpm prior to treatment and transfers sit to stand with CGA x 1. Patient ambulates ROUNDING MACHINE TENDER/CGA, 50'x 2, demonstrating slow, steady stride and increased fatigue. Patient needed seated rest break between gait trials with SpO2 96%, HR 82 bpm during gait ex. Patient returned to bedside chair and reamained following treatment with SpO2 97%, HR 71 bpm. Call light, tray table and telephone within reach of patient voicing no new c/o's. Will continue per POC as tolerated, total treatment time 16 minutes. Shawn Giles, DIET TECH
--- NOTE | 2018-06-22 11:34 | NUR ---
Clinical updates faxed to [facility], patient is ok to return when medically stable for discharge.
[2018-06-22 12:00] VITALS: BP 122/72
[2018-06-22] MEDS ORDERED: PLAVIX75 M1 PO (14:29)
--- NOTE | 2018-06-22 14:39 | NUR ---
I SPOKE WITH PT'S DAUGHTER JOSE TO NOTIFY HER THAT PT WILL BE DISCHARGED TO HOME TODAY WITH VISITING NURSES.
--- NOTE | 2018-06-22 14:41 | NUR ---
Notified [facility] patient is being discharged to home instead of returning to . She will have [facility] home health services.
--- NOTE | 2018-06-22 14:53 | NUR ---
REFERRAL FAXED TO [facility] 234 BEDS AT THE [facility].
[2018-06-22 16:00] VITALS: BP 123/58
--- NOTE | 2018-06-22 16:19 | NUR ---
Discharge instructions reviewed with patient/family. Patient receptive and verbalizes understanding. Follow-up care arranged. Written instructions given to patient/family. JUDITH YAO
--- NOTE | 2018-06-23 07:26 | NUR ---
PHYSICAL THERAPY CO-SIGN I approve of the Phyical Therapy notes written above. ARCELIA MCNEIL PT
[2018-08-12] MEDS ORDERED: BUMETANIDE1 MG PO (10:55)
== END 2018-06-22 16:18 | disposition home health service (06) | DRG 368 ==
LOC: ED 14:50 → EDHOLD 15:47 → 5E 15:47 → EDHOLD 16:22 → 5E 16:44
PROVIDERS: Internal Medicine; Student in an Organized Health Care Education/Training Program; ADMIT Internal Medicine
PROC: 30233N1 Transfusion of Nonautologous Red Blood Cells into Peripheral Vein, Percutaneous Approach (ICD-10-PCS; principal; 2018-06-18)
PROC: 0DB78ZX Excision of Stomach, Pylorus, Via Natural or Artificial Opening Endoscopic, Diagnostic (ICD-10-PCS; 2018-06-19)
DX: I85.01 Esophageal varices with bleeding (principal); E43 Unspecified severe protein-calorie malnutrition; I50.42 Chronic combined systolic (congestive) and diastolic (congestive) heart failure; E11.65 Type 2 diabetes mellitus with hyperglycemia; D50.0 Iron deficiency anemia secondary to blood loss (chronic); K21.9 Gastro-esophageal reflux disease without esophagitis; E55.9 Vitamin D deficiency, unspecified; J43.9 Emphysema, unspecified; I48.91 Unspecified atrial fibrillation; F03.90 Unspecified dementia, unspecified severity, without behavioral disturbance, psychotic disturbance, mood disturbance, and anxiety; G47.33 Obstructive sleep apnea (adult) (pediatric); I25.10 Atherosclerotic heart disease of native coronary artery without angina pectoris; K44.9 Diaphragmatic hernia without obstruction or gangrene; K76.0 Fatty (change of) liver, not elsewhere classified; E86.0 Dehydration; Z99.81 Dependence on supplemental oxygen; Z88.2 Allergy status to sulfonamides; Z86.73 Personal history of transient ischemic attack (TIA), and cerebral infarction without residual deficits; I25.2 Old myocardial infarction; Z95.5 Presence of coronary angioplasty implant and graft; Z90.711 Acquired absence of uterus with remaining cervical stump; Z82.49 Family history of ischemic heart disease and other diseases of the circulatory system; Z79.82 Long term (current) use of aspirin; Z79.899 Other long term (current) drug therapy; Z68.29 Body mass index [BMI] 29.0-29.9, adult; K29.71 Gastritis, unspecified, with bleeding; K29.81 Duodenitis with bleeding

== ENCOUNTER → 2018-07-09 | Outpatient (CLI) | payer MEDICARE, MEDICAID ==
[~2018-07-09] MED LIST changes: +PLAVIX75 M1 PO; +SALINE NASAL SP88 ML NAS
[2018-07-09 15:37] LABS: HEMATOCRIT 32.5 % (37.0-47.0); HEMOGLOBIN 10.1 g/dl (12.0-16.0); MEAN CELL VOLUME 92.1 fl (81.0-99.0); MEAN CORPUSCULAR HGB 28.6 pg (27.0-31.0); MEAN CORPUSCULAR HGB CONC 31.1 g/dl (33.0-37.0); MEAN PLATELET VOLUME 9.6 fl (9.6-12.3); PLATELET COUNT AUTOMATED 229 10*3/uL (130-400); RED BLOOD COUNT 3.53 10*6/uL (4.10-5.10); RED CELL DISTRI WIDTH 15.3 % (0-14.5); WHITE BLOOD COUNT 4.5 10*3/uL (4.8-10.8)
[2018-07-09 16:20] LABS: BASOPHILS 1 % (0-1); OVALOCYTES FEW; PLATELET SUFFICIENCY NORMAL (NORMAL); TOTAL CELLS COUNTED 100 #CELLS
== END | disposition home or self-care (01) ==
LOC: LAB 15:06
PROVIDERS: Internal Medicine Gastroenterology
DX: K92.2 Gastrointestinal hemorrhage, unspecified (principal)

== ENCOUNTER 2018-07-24 16:55 | Inpatient (IN) | payer MEDICARE, MEDICAID ==
[~2018-07-24] VITALS: Ht 170.2 cm; Wt 80.1 kg
--- NOTE | ~2018-07-24 | PR ---
[place], [place] PROGRESS NOTE [id number] UN[facility] #: [id number] ROOM: 406 DOCTOR: ZULEYMA COOK MD BIRTHDATE: [birth year] DOS: 07/29/2018 SUBJECTIVE: She feels well. She does not have any palpitation. No PND, orthopnea. Has not had any swelling of the legs. She walked in the room without much symptoms. She has not noticed any change except color of the stools. Her appetite is fine. She has no nausea. Has not had any palpitations or loss of consciousness. PHYSICAL EXAMINATION: GENERAL: Reveals a patient pleasant, alert. She looks pale. She is comfortable. VITAL SIGNS: Temperature is normal. Pulse is regular at 60 beats per minute, blood pressure 130/54. NECK: JVP is normal. LUNGS: Fairly clear lungs. EXTREMITIES: No edema in lower extremity. CARDIOVASCULAR: Auscultation with regular rate. LABORATORY DATA: Monitor shows normal sinus rhythm. She has not had any atrial fibrillation since she has been here. IMPRESSION: 1. This patient has paroxysmal atrial fibrillation, but she remains in sinus rhythm and she is on propafenone 150 every 12 hours. 2. She has had recurrent GI bleeding and has persistent anemia and the attending discussed this with me and I feel that she should not be on an anticoagulant at all and sinus rhythm should be maintained with propafenone or some other antiarrhythmic if this one does not work. From cardiac standpoint, she can be discharged home. ZULEYMA COOK MD CM:PNTRANS [id number] ZULEYMA COOK MD 07/30/18 0138 interface
--- NOTE | ~2018-07-24 | EKG ---
[place], [place] ELECTROCARDIOGRAM REPORT NAME: PENG FRANCO UNIT #: [id number] ROOM: 406 DOCTOR: PATRICK DRAFT REPORT BIRTHDATE: [birth year] [facility] Test Date: 2018-07-24 Test Time: 23:29:24 Pat Name: PENG FRANCO Department: Room: 406 Gender: F Instructor Looping: Radha Cornelius : 1945 Requested By: LOVELY RODRIGUEZ Order Number: [id number] Reading MD: Ollie Marion MD Measurements Intervals [place] Rate: 66 P: 77 SD: 152 QRS: 46 QRSD: 88 T: QT: 449 QTc: 471 Interpretive Statements Sinus rhythm Low voltage, precordial leads Baseline wander in lead(s) I,II,aVR Compared to ECG 05/31/2018 10:32:07 Atrial premature complex(es) no longer present ST (T wave) deviation no longer present Electronically Signed On 07-27-2018 14:55:15 PDT by Ollie Marion MD CM:EKGRPT:ELECTROCARDIOGRAM REPORT 2329 1455 LOVELY RODRIGUEZ MD EPIPHANY DRAFT REPORT LOVELY RODRIGUEZ MD
--- NOTE | ~2018-07-24 | EKG ---
[place], [place] ELECTROCARDIOGRAM REPORT NAME: PENG FRANCO UNIT #: [id number] ROOM: 406 DOCTOR: PATRICK DRAFT REPORT BIRTHDATE: [birth year] [facility] Test Date: 2018-07-26 Test Time: 14:12:07 Pat Name: PENG FRANCO Department: Room: [facility] 2 Gender: F Commercial Lines Manager: : 1945 Requested By: CATHERINE BURROWS Order Number: [id number] Reading MD: Ollie Marion MD Measurements Intervals [place] Rate: 62 P: 47 UT: 169 QRS: 61 QRSD: 107 T: -15 QT: 455 QTc: 462 Interpretive Statements NSR, with sinus arrhythmia Low voltage, precordial leads Compared to ECG 05/31/2018 10:32:07 Sinus rhythm no longer present Atrial premature complex(es) no longer present ST (T wave) deviation no longer present Electronically Signed On 07-27-2018 15:02:55 PDT by Ollie Marion MD CM:EKGRPT:ELECTROCARDIOGRAM REPORT 1412 1502 CATHERINE GALVAN DRAFT REPORT CATHERINE BURROWS DO
--- NOTE | ~2018-07-24 | EKG ---
[place], [place] ELECTROCARDIOGRAM REPORT NAME: PENG FRANCO UNIT #: [id number] ROOM: 406 DOCTOR: PATRICK DRAFT REPORT BIRTHDATE: [birth year] [facility] Test Date: 2018-07-24 Test Time: 16:53:58 Pat Name: PENG FRANCO Department: Room: 406 Gender: F Automatic Chief: : 1945 Requested By: LOVELY RODRIGUEZ Order Number: [id number] Reading MD: Ollie Marion MD Measurements Intervals [place] Rate: 72 P: 79 AR: 147 QRS: 64 QRSD: 104 T: -7 QT: 434 QTc: 476 Interpretive Statements Sinus rhythm Multiple premature complexes, vent \T\ supraven Borderline repolarization abnormality Compared to ECG 05/31/2018 10:32:07 Atrial premature complex(es) no longer present ST (T wave) deviation no longer present Electronically Signed On 07-27-2018 14:54:05 PDT by Ollie Marion MD CM:EKGRPT:ELECTROCARDIOGRAM REPORT 1653 1454 LOVELY NGUYEN DRAFT REPORT LOVELY RODRIGUEZ MD
--- NOTE | ~2018-07-24 | CON ---
[place], [place] REPORT OF CONSULTATION NAME: PENG FRANCO UNIT #: [id number] ROOM: 406 DOCTOR: ZULEYMA COOK MD BIRTHDATE: [birth year] DOS: 07/27/2018 HISTORY OF PRESENT ILLNESS: This is a very pleasant 73-year-old -[place] woman with a history of anemia, probably from GI blood loss. She had been on Eliquis for paroxysmal atrial fibrillation. This was discontinued last month. The patient is not sure why she came to the hospital and she has some degree of dementia, but on reminding her that she had some kind of chest pain, she told me that she has a little discomfort in the left submammary area and it is somewhat tender to touch. According to the resident, she had been sitting in a chair at home and developed this left-sided chest pain. It did not radiate and chest was tender at that time. She had no sweating or nausea. There is no evidence that she passed out. She has not had any PND, orthopnea, but has shortness of breath on exertion. She has chronic cough. PAST MEDICAL HISTORY: Paroxysmal atrial fibrillation, coronary artery disease probably an AL about 15 years ago according to the patient, but she did not go to any other facility for heart catheterization at that time, although she carries a diagnosis of heart failure and CVA. Has dementia, type 2 diabetes mellitus, COPD, GERD and AV malformation of the GI tract. She had a GI workup done for anemia last month. She has obstructive sleep apnea and has had coronary stent and deployed. Had hysterectomy, cataract surgery, knee surgery and wrist surgery in the remote past. SOCIAL HISTORY: She had been a smoker for a long time, but no longer smokes. HOME MEDICATIONS: Include apixaban, bumetanide, clopidogrel, donepezil, Aricept, vitamin D, ferrous gluconate, folic acid, metoprolol succinate 50 mg daily, pravastatin 40 at bedtime, propafenone 150 b.i.d., ranitidine 150 at bedtime and Synthroid/Kersey Thyroid 180 mg daily. PHYSICAL EXAMINATION: GENERAL: This is revealed a patient who is very pleasant, alert, oriented. She is very pale looking. She is not diaphoretic. Temperature is normal. There is no thyromegaly or finger clubbing. She is not cyanotic. VITAL SIGNS: Pulse is 60 regular, blood pressure 126/62. NECK: Normal JVP. There is no carotid bruit. HEART: There is no cardiomegaly. No murmurs are present. Pedal pulses are palpable. EXTREMITIES: There is no edema in the lower extremity. RESPIRATORY: She is mildly tachypneic and has oxygen on and has a harsh cough auscultation with moderately diminished breath sounds with inspiratory and expiratory crackles and rhonchi and occasional wheeze. ABDOMEN: Supple, nontender. No pulsatile mass or bruit. Liver is not enlarged. DIAGNOSTIC STUDIES: She had a few ECGs and they demonstrate a minimal ST segment depression in lead I, II and V5 and V6. This ST segment depression is less than 1 mm. [place], [place] REPORT OF CONSULTATION NAME: PENG FRANCO UNIT #: [id number] ROOM: 406 DOCTOR: ZULEYMA COOK MD BIRTHDATE: [birth year] LABORATORY DATA: Troponin I levels have been less than 0.015. Hemoglobin is 7 g/dL. BUN 29, creatinine 1.23, and glucose 175 mg/dL. Normal electrolytes. HDL 31, LDL 56, total cholesterol 112 and triglyceride 126 mg/dL. IMPRESSION AND PLAN: 1. This patient with coronary artery disease and remote coronary stent and chest pain that seems to be atypical, i.e., very persistent and with tenderness over the area; however, her ECG is somewhat abnormal. Chest pain may be due to severe anemia and COPD. Despite that, I think it is a good idea to perform a Lexiscan Cardiolite study to exclude significant coronary artery stenosis. 2. Chronic obstructive pulmonary disease. This appeared to be quite significant, but she no longer smokes. I thank you for this consult. ZULEYMA COOK MD CM:CONSTR:REPORT OF CONSULTATION 1053 07/28/18 0413 interface
--- NOTE | ~2018-07-24 | EKG ---
[place], [place] ELECTROCARDIOGRAM REPORT NAME: PENG FRANCO UNIT #: [id number] ROOM: 406 DOCTOR: PATRICK DRAFT REPORT BIRTHDATE: [birth year] [facility] Test Date: 2018-07-24 Test Time: 19:18:00 Pat Name: PENG FRANCO Department: Room: 406 Gender: F Glass Technologist: Radha Cornelius : 1945 Requested By: LOVELY RODRIGUEZ Order Number: [id number] Reading MD: Ollie Marion MD Measurements Intervals [place] Rate: 66 P: 81 MA: 153 QRS: 54 QRSD: 87 T: -8 QT: 429 QTc: 450 Interpretive Statements Sinus rhythm Atrial premature complexes Low voltage, precordial leads Abnormal R-wave progression, late transition Compared to ECG 05/31/2018 10:32:07 ST (T wave) deviation no longer present Electronically Signed On 07-27-2018 14:55:02 PDT by Ollie Marion MD CM:EKGRPT:ELECTROCARDIOGRAM REPORT 1455 LOVELY RODRIGUEZ MD EPIPHANY DRAFT REPORT LOVELY RODRIGUEZ MD
--- NOTE | ~2018-07-24 | EKG ---
[place], [place] ELECTROCARDIOGRAM REPORT NAME: PENG FRANCO UNIT #: [id number] ROOM: 406 DOCTOR: PATRICK DRAFT REPORT BIRTHDATE: [birth year] [facility] Test Date: 2018-07-26 Test Time: 16:56:55 Pat Name: PENG FRANCO Department: Room: 406 2 Gender: F Data Technical Lead: EKG.HI : 1945 Requested By: CATHERINE BURROWS Order Number: [id number] Reading MD: Ollie Marion MD Measurements Intervals [place] Rate: 58 P: 72 AL: 154 QRS: 60 QRSD: 104 T: 4 QT: 460 QTc: 452 Interpretive Statements Sinus rhythm Low voltage, precordial leads Compared to ECG 05/31/2018 10:32:07 Atrial premature complex(es) no longer present ST (T wave) deviation no longer present Electronically Signed On 07-27-2018 15:04:14 PDT by Ollie Marion MD CM:EKGRPT:ELECTROCARDIOGRAM REPORT 1656 1504 CATHERINE GALVAN DRAFT REPORT CATHERINE BURROWS DO
--- NOTE | ~2018-07-24 | EKG ---
[place], [place] ELECTROCARDIOGRAM REPORT NAME: PENG FRANCO UNIT #: [id number] ROOM: 406 DOCTOR: PATRICK DRAFT REPORT BIRTHDATE: [birth year] [facility] Test Date: 2018-07-26 Test Time: 20:18:59 Pat Name: PENG FRANCO Department: Room: [facility] 2 Gender: F Tankage Supervisor: MRAY : 1945 Requested By: CATHERINE BURROWS Order Number: [id number] Reading MD: Ollie Marion MD Measurements Intervals [place] Rate: 55 P: 83 [place]: 139 QRS: 62 QRSD: 82 T: 38 QT: 485 QTc: 464 Interpretive Statements Sinus rhythm Atrial premature complex Low voltage, extremity and precordial leads Compared to ECG 05/31/2018 10:32:07 ST (T wave) deviation no longer present Electronically Signed On 07-27-2018 15:05:51 PDT by Ollie Marion MD CM:EKGRPT:ELECTROCARDIOGRAM REPORT 2018 1505 CATHERINE GALVAN DRAFT REPORT CATHERINE BURROWS DO
--- NOTE | ~2018-07-24 | ST ---
[place], [place] EXERCISE STRESS TEST REPORT NAME: PENG FRANCO UNIT #: [id number] ROOM: 406 DOCTOR: CHERIE SUAREZ MD BIRTHDATE: [birth year] DOS: 07/28/2018 LEXISCAN PORTION OF THE LEXISCAN CARDIOLITE Baseline cardiogram, sinus rhythm, mild ST depression in the inferior and lateral leads, 0.4 mg Lexiscan, duration of 10 seconds. With Lexiscan, no new EKG changes. No chest discomfort. Blood pressure and heart rate response was normal. Nuclear images will be reported separately. CHERIE SUAREZ MD CM:STRESS:EXERCISE STRESS TEST REPORT 0702 0709 CHERIE SUAREZ MD
[2018-07-24 16:57] VITALS: BP 156/60
[2018-07-24 17:24] LABS: BASO % 0.2 % (0.0-1.0); EOS # 0.1 10*3/uL (0.0-0.4); EOS % 1.6 % (1.0-4.0); HEMATOCRIT 27.3 % (37.0-47.0); HEMOGLOBIN 7.9 g/dl (12.0-16.0); LYMPH # 1.3 10*3/uL (1.3-4.4); LYMPH % 30.5 % (27.0-41.0); MEAN CELL VOLUME 95.5 fl (81.0-99.0); MEAN CORPUSCULAR HGB 27.6 pg (27.0-31.0); MEAN CORPUSCULAR HGB CONC 28.9 g/dl (33.0-37.0); MEAN PLATELET VOLUME 10.1 fl (9.6-12.3); MONO # 0.7 10*3/uL (0.1-1.0); NEUT # 2.3 10*3/uL (2.3-7.9); NEUT % 52.5 % (47.0-73.0); PLATELET COUNT AUTOMATED 221 10*3/uL (130-400); RED BLOOD COUNT 2.86 10*6/uL (4.10-5.10); RED CELL DISTRI WIDTH 15.4 % (0-14.5); WHITE BLOOD COUNT 4.4 10*3/uL (4.8-10.8)
[2018-07-24 17:40] LABS: ALKALINE PHOSPHATASE 114 U/L (45-117); BUN 29 mg/dl (7-24); CHLORIDE 108 mmol/L (98-107); CREATININE 1.29 mg/dL (0.55-1.02); POTASSIUM 4.4 mmol/L (3.5-5.1); SGOT/AST 21 IU/L (3-35); SGPT/ALT 17 U/L (12-78); SODIUM 139 mmol/L (136-145); TOTAL PROTEIN 6.8 gm/dL (6.4-8.2)
[2018-07-24 17:42] LABS: ACT PARTIAL THROMBO TIME 23.9 SECONDS (20.0-32.1); INTERNATIONAL NORM RATIO 1.1 (2.0-3.5)
[2018-07-24 17:45] LABS: TROPONIN I < 0.015 ng/ml (<0.045)
[2018-07-24 17:47] VITALS: BP 144/88
[2018-07-24 18:18] VITALS: BP 116/52
[2018-07-24 18:35] VITALS: BP 132/53
[2018-07-24 20:00] VITALS: BP 123/49
[2018-07-25] VITALS: BP 113/52
[2018-07-25 06:08] LABS: ALBUMIN 2.7 gm/dl (3.1-4.5); CREATININE 1.23 mg/dL (0.55-1.02); FREE T4 0.78 ng/dl (0.76-1.46); PHOSPHOROUS 4.6 mg/dL (2.5-4.9); POTASSIUM 4.7 mmol/L (3.5-5.1); TOTAL PROTEIN 6.2 gm/dL (6.4-8.2)
[2018-07-25 06:13] LABS: THYROID STIM HORMONE (HS) 5.59 uIU/ml (0.358-4.75)
[2018-07-25 06:26] LABS: BASO % 0.2 % (0.0-1.0); EOS # 0.1 10*3/uL (0.0-0.4); EOS % 2.1 % (1.0-4.0); LYMPH # 1.2 10*3/uL (1.3-4.4); LYMPH % 27.8 % (27.0-41.0); MEAN CORPUSCULAR HGB 27.5 pg (27.0-31.0); MEAN PLATELET VOLUME 10.1 fl (9.6-12.3); MONO # 0.7 10*3/uL (0.1-1.0); MONO % 15.5 % (3.0-9.0); NEUT # 2.4 10*3/uL (2.3-7.9); NEUT % 53.9 % (47.0-73.0); PLATELET COUNT AUTOMATED 186 10*3/uL (130-400); RED BLOOD COUNT 2.55 10*6/uL (4.10-5.10); RED CELL DISTRI WIDTH 15.9 % (0-14.5); WHITE BLOOD COUNT 4.4 10*3/uL (4.8-10.8)
[2018-07-25 06:47] LABS: ACT PARTIAL THROMBO TIME 25.4 SECONDS (20.0-32.1); INTERNATIONAL NORM RATIO 1.1 (2.0-3.5)
[2018-07-25 07:30] LABS: VITAMIN D, 25-HYDROXY 35.2 ng/mL (30-100)
[2018-07-25 09:22] VITALS: BP 115/53
[2018-07-25 12:00] VITALS: BP 119/59
[2018-07-25 14:04] VITALS: BP 119/59
[2018-07-25 16:00] VITALS: BP 116/66
[2018-07-25 20:00] VITALS: BP 119/58
[2018-07-26] VITALS: BP 123/51
[2018-07-26 06:04] LABS: CREATININE 1.29 mg/dL (0.55-1.02); POTASSIUM 4.6 mmol/L (3.5-5.1)
[2018-07-26 06:13] LABS: BASO % 0.5 % (0.0-1.0); EOS # 0.1 10*3/uL (0.0-0.4); EOS % 2.3 % (1.0-4.0); HEMATOCRIT 25.6 % (37.0-47.0); HEMOGLOBIN 7.3 g/dl (12.0-16.0); LYMPH # 1.2 10*3/uL (1.3-4.4); LYMPH % 31.2 % (27.0-41.0); MEAN CELL VOLUME 96.2 fl (81.0-99.0); MEAN CORPUSCULAR HGB 27.4 pg (27.0-31.0); MEAN CORPUSCULAR HGB CONC 28.5 g/dl (33.0-37.0); MEAN PLATELET VOLUME 9.9 fl (9.6-12.3); MONO # 0.7 10*3/uL (0.1-1.0); NEUT # 1.9 10*3/uL (2.3-7.9); NEUT % 48.7 % (47.0-73.0); PLATELET COUNT AUTOMATED 201 10*3/uL (130-400); RED BLOOD COUNT 2.66 10*6/uL (4.10-5.10); RED CELL DISTRI WIDTH 15.7 % (0-14.5); WHITE BLOOD COUNT 3.9 10*3/uL (4.8-10.8)
[2018-07-26 08:00] VITALS: BP 139/71
[2018-07-26 12:00] VITALS: BP 128/57
[2018-07-26 13:50] VITALS: BP 137/62
[2018-07-26 16:00] VITALS: BP 134/57
[2018-07-26 20:00] VITALS: BP 138/89
[2018-07-27] VITALS: BP 144/88
[2018-07-27 07:55] VITALS: BP 126/62
[2018-07-27 12:00] VITALS: BP 114/47
[2018-07-27 16:00] VITALS: BP 115/47
[2018-07-27 20:00] VITALS: BP 138/47
[2018-07-28] VITALS: BP 138/45
[2018-07-28 06:45] LABS: BASO % 0.5 % (0.0-1.0); EOS # 0.1 10*3/uL (0.0-0.4); EOS % 1.5 % (1.0-4.0); HEMATOCRIT 27.2 % (37.0-47.0); LYMPH # 1.3 10*3/uL (1.3-4.4); LYMPH % 32.5 % (27.0-41.0); MEAN CELL VOLUME 93.5 fl (81.0-99.0); MEAN CORPUSCULAR HGB 27.5 pg (27.0-31.0); MEAN CORPUSCULAR HGB CONC 29.4 g/dl (33.0-37.0); MEAN PLATELET VOLUME 9.7 fl (9.6-12.3); MONO # 0.6 10*3/uL (0.1-1.0); MONO % 14.8 % (3.0-9.0); NEUT % 50.4 % (47.0-73.0); PLATELET COUNT AUTOMATED 216 10*3/uL (130-400); RED BLOOD COUNT 2.91 10*6/uL (4.10-5.10); WHITE BLOOD COUNT 3.9 10*3/uL (4.8-10.8)
[2018-07-28 07:09] LABS: POTASSIUM 3.9 mmol/L (3.5-5.1)
[2018-07-28 07:28] LABS: CREATININE 1.35 mg/dL (0.55-1.02)
[2018-07-28 08:00] VITALS: BP 122/56
[2018-07-28 12:00] VITALS: BP 147/55
[2018-07-28 16:00] VITALS: BP 144/43
[2018-07-28 20:00] VITALS: BP 146/45
[2018-07-29] VITALS: BP 103/85; BP 119/66
[2018-07-29 06:45] LABS: CREATININE 1.32 mg/dL (0.55-1.02); POTASSIUM 3.6 mmol/L (3.5-5.1)
[2018-07-29 08:00] VITALS: BP 138/54
[2018-07-29 12:00] VITALS: BP 139/59
[2018-08-12] MEDS ORDERED: BUMETANIDE1 MG PO (10:55)
== END 2018-07-29 14:14 | disposition home or self-care (01) | DRG 682 ==
LOC: ED 16:55 → EDHOLD 18:04 → 4E 18:04
PROVIDERS: Emergency Medicine; Internal Medicine; Student in an Organized Health Care Education/Training Program; ADMIT Internal Medicine
PROC: 4A02XM4 Measurement of Cardiac Total Activity, External Approach (ICD-10-PCS; principal; 2018-07-28)
PROC: 3E073KZ Introduction of Other Diagnostic Substance into Coronary Artery, Percutaneous Approach (ICD-10-PCS; principal; 2018-07-28)
DX: N17.0 Acute kidney failure with tubular necrosis (principal); I85.01 Esophageal varices with bleeding; E44.0 Moderate protein-calorie malnutrition; I25.110 Atherosclerotic heart disease of native coronary artery with unstable angina pectoris; R07.89 Other chest pain; E86.0 Dehydration; D72.819 Decreased white blood cell count, unspecified; E83.41 Hypermagnesemia; E87.8 Other disorders of electrolyte and fluid balance, not elsewhere classified; D64.9 Anemia, unspecified; I11.0 Hypertensive heart disease with heart failure; E11.65 Type 2 diabetes mellitus with hyperglycemia; E78.5 Hyperlipidemia, unspecified; J43.9 Emphysema, unspecified; K21.9 Gastro-esophageal reflux disease without esophagitis; R00.1 Bradycardia, unspecified; E53.8 Deficiency of other specified B group vitamins; I50.9 Heart failure, unspecified; I48.0 Paroxysmal atrial fibrillation; F03.90 Unspecified dementia, unspecified severity, without behavioral disturbance, psychotic disturbance, mood disturbance, and anxiety; E66.3 Overweight; G47.33 Obstructive sleep apnea (adult) (pediatric); Z99.81 Dependence on supplemental oxygen; I25.2 Old myocardial infarction; Z86.73 Personal history of transient ischemic attack (TIA), and cerebral infarction without residual deficits; Z95.5 Presence of coronary angioplasty implant and graft; Z88.2 Allergy status to sulfonamides; Z90.710 Acquired absence of both cervix and uterus; Z98.49 Cataract extraction status, unspecified eye; Z82.49 Family history of ischemic heart disease and other diseases of the circulatory system; Z79.02 Long term (current) use of antithrombotics/antiplatelets; Z79.899 Other long term (current) drug therapy; Z87.891 Personal history of nicotine dependence; Z68.28 Body mass index [BMI] 28.0-28.9, adult

== ENCOUNTER 2018-09-17 09:22 | Emergency (ER) | payer MEDICARE, MEDICAID ==
[~2018-09-17] VITALS: Ht 170.1 cm; Wt 79.4 kg
== END 2018-09-17 10:40 | disposition home or self-care (01) ==
LOC: ED 09:22
DX: S00.83XA Contusion of other part of head, initial encounter (principal); Z88.2 Allergy status to sulfonamides; Z79.899 Other long term (current) drug therapy; Z60.2 Problems related to living alone; W01.198A Fall on same level from slipping, tripping and stumbling with subsequent striking against other object, initial encounter; Y93.89 Activity, other specified; Y92.098 Other place in other non-institutional residence as the place of occurrence of the external cause; Y99.8 Other external cause status

== ENCOUNTER 2019-01-25 19:11 | Inpatient (IN) | payer MEDICARE, MEDICAID ==
[2019-01-25] VITALS (11 sets, daily range): BP systolic 106–131; BP diastolic 40–57
[~2019-01-25] VITALS: Ht 170.1 cm; Wt 79.9 kg
[2019-01-25 19:45] LABS: MEAN CELL VOLUME 87.5 fl (81.0-99.0); MEAN CORPUSCULAR HGB 23.5 pg (27.0-31.0); MEAN CORPUSCULAR HGB CONC 26.9 g/dl (33.0-37.0); MEAN PLATELET VOLUME 9.5 fl (9.6-12.3); PLATELET COUNT AUTOMATED 267 10*3/uL (130-400); RED BLOOD COUNT 2.55 10*6/uL (4.10-5.10); RED CELL DISTRI WIDTH 16.2 % (0-14.5); WHITE BLOOD COUNT 4.7 10*3/uL (4.8-10.8)
[2019-01-25 19:47] LABS: HEMATOCRIT 22.3 % (37.0-47.0)
[2019-01-25 19:53] LABS: ACT PARTIAL THROMBO TIME 22.7 SECONDS (20.0-32.1); INTERNATIONAL NORM RATIO 1.1 (2.0-3.5)
[2019-01-25 20:01] LABS: ALBUMIN 2.6 gm/dl (3.1-4.5); CREATININE 1.2 mg/dL (0.55-1.02); POTASSIUM 3.9 mmol/L (3.5-5.1); TOTAL PROTEIN 6.6 gm/dL (6.4-8.2); TROPONIN I 0.031 ng/ml (<0.045)
[2019-01-25 20:11] LABS: BILIRUBIN NEGATIVE (NEGATIVE); BLOOD NEGATIVE (NEGATIVE); CLARITY SL CLOUDY (CLEAR); COLOR YELLOW (YELLOW); GLUCOSE NEGATIVE (NEGATIVE); KETONE NEGATIVE (NEGATIVE); LEUKO ESTERASE 2+ (NEGATIVE); NITRITE NEGATIVE (NEGATIVE); SPECIFIC GRAVITY 1.015 (1.005-1.030); UROBILINOGEN 0.2 E.U./dl (0.2-1.0)
[2019-01-25 20:21] LABS: BASOPHILS 1 % (0-1); OVALOCYTES FEW; PLATELET SUFFICIENCY NORMAL (NORMAL); TOTAL CELLS COUNTED 100 #CELLS
[2019-01-25 20:29] LABS: BACTERIA 2+; EPITHELIAL CELLS TNTC; RBC 0-2 rbc/hpf (0-2); WBC 31-40 wbc/hpf (0-5)
--- NOTE | 2019-01-25 21:25 | NUR ---
BLOOD TRANSFUSION HAS BEGUN. VITALS STABLE.
--- NOTE | 2019-01-25 22:07 | NUR ---
PT BLOOD INITIATED. CHECK PT'S TAR.
--- NOTE | 2019-01-25 22:12 | NUR ---
LACTIC ACID 3.1. DR. BERGMAN AWARE.
--- NOTE | 2019-01-25 22:32 | NUR ---
PT'S DAUGHTER'SJOSE' NUMBER IS [phone].
[2019-01-26] VITALS (13 sets, daily range): BP systolic 109–132; BP diastolic 42–85
--- NOTE | 2019-01-26 00:02 | NUR ---
PT RESTING IN BED AT THIS TIME. CALL LIGHT WITHIN REACH. PT TOLERATING BLOOD TRANSFUSION WELL. VITALS STABLE. PT REPORTS SHE FEELS FINE. WILL CONTINUE TO MONITOR.
--- NOTE | 2019-01-26 00:57 | NUR ---
PT'S IV IN LEFT HAND HAS INFILTRATED. THE IV HAS BEEN REMOVED.
--- NOTE | 2019-01-26 00:59 | NUR ---
PT REPORTS SHE IS FEELING NAUSEATED AT THIS TIME.
--- NOTE | 2019-01-26 02:08 | NUR ---
PT IS SLEEPING IN HER ROOM AT THIS TIME. CALL LIGHT WITHIN REACH. NO DISTRESS NOTED. WILL CONTINUE TO MONITOR.
--- NOTE | 2019-01-26 03:54 | NUR ---
PT RESTING IN BED REPOSITIONED FOR COMFORT. MONITOR SHOWING AT FIB AT 80. PULSE OX AT 100% WITH 2 LITERS AT HOME. PT VOICES NO COMPLAINTS CALL LIGHT IN REACH AND HTE PATIENT WAS REORIENTED ON USE. MAGDALENA FARAH RN.
[2019-01-26 06:33] LABS: HEMATOCRIT 21.5 % (37.0-47.0); MEAN CORPUSCULAR HGB 25.1 pg (27.0-31.0); MEAN CORPUSCULAR HGB CONC 28.8 g/dl (33.0-37.0); MEAN PLATELET VOLUME 9.6 fl (9.6-12.3); PLATELET COUNT AUTOMATED 237 10*3/uL (130-400); RED BLOOD COUNT 2.47 10*6/uL (4.10-5.10); RED CELL DISTRI WIDTH 15.7 % (0-14.5); WHITE BLOOD COUNT 4.5 10*3/uL (4.8-10.8)
[2019-01-26 06:44] LABS: HEMOGLOBIN 6.2 g/dl (12.0-16.0)
[2019-01-26 06:46] LABS: ALBUMIN 2.5 gm/dl (3.1-4.5); BUN 17 mg/dl (7-24); CHLORIDE 106 mmol/L (98-107); CHOLESTEROL 111 mg/dL (<200); CREATININE 1.02 mg/dL (0.55-1.02); PHOSPHOROUS 3.9 mg/dL (2.5-4.9); POTASSIUM 3.7 mmol/L (3.5-5.1); SGOT/AST 9 IU/L (3-35); SGPT/ALT 9 U/L (12-78); SODIUM 138 mmol/L (136-145); TOTAL PROTEIN 6.3 gm/dL (6.4-8.2); TRIGLYCERIDES 68 mg/dl (<150); VLDL CHOLESTEROL 14 mg/dL (6-40)
[2019-01-26 06:52] LABS: ALKALINE PHOSPHATASE 75 U/L (45-117); HDL CHOLESTEROL 31 mg/dl (40-60); LDL CHOLESTEROL 66 mg/dL (9-159)
[2019-01-26 07:16] LABS: BASOPHILS 1 % (0-1); TOTAL CELLS COUNTED 100 #CELLS
[2019-01-26 07:18] LABS: OVALOCYTES FEW; PLATELET SUFFICIENCY NORMAL (NORMAL); POLYCHROMASIA SLIGHT
[2019-01-26 07:24] LABS: INTERNATIONAL NORM RATIO 1.1 (2.0-3.5)
[2019-01-26 07:40] LABS: VITAMIN D, 25-HYDROXY 33.8 ng/mL (30-100)
--- NOTE | 2019-01-26 07:52 | NUR ---
CHANGED FOR HEAVY URINARY INCONTINENCE. BED LINEN AND GOWN CHNAGED. MATTRESS SCRUBBED AND NEW LINEN, GOWN, AND BRIEF APPLIED. REPOSITIONED AND HOB ELEVATED FOR COMFORT. SIDE RAILS X 2 AND CALL LIGHT WITHIN REACH. WILL MONITOR.
--- NOTE | 2019-01-26 09:15 | NUR ---
Spoke with Aishwarya, receiving RN to notify of ETA to room.
--- NOTE | 2019-01-26 10:15 | NUR ---
A 73 YO FEMALE, admitted to , under the services of VAMSHI Bunch DO with a diagnosis of ANEMIA/PNEUMONIA/OCCULT BLOOD POSITIVE STOOL. Chief complaint is SHORTNESS OF BREATH, RACING PULSE AND NAUSEA AT HOME. Patient arrived via stretcher from ER. Monitor applied. Initial assessment completed. Vital signs taken and recorded. VAMSHI BUNCH DO notified of admission to the unit. Orders received. See assessment for past medical history, medications and allergies. Patient and/or family oriented to unit. [facility]. Clothing/patient valuable form completed. CHETAN YUAN
--- NOTE | 2019-01-26 10:21 | NUR ---
DR. JUAREZ AWARE OF CONSULT AND IN TO SEE PATIENT RE: PLAN OF CARE.
--- NOTE | 2019-01-26 12:05 | NUR ---
DR. LIRA NOTIFIED OF CONSULT RE: ANEMIA/GI BLEED. OBTAINED ORDER TO GET H&H AT 5PM AND CANCEL THE H&H ORDERED PRIOR TO THAT TIME POST TRANSFUSION, AND CALL THE RESULT.
[2019-01-26] MEDS ORDERED: NATURE'S BLEND F1 MG PO (12:56)
[2019-01-26] MEDS ORDERED: BUMETANIDE1 MG PO (12:57)
[2019-01-26] MEDS ORDERED: PROPAFENONE HC150 MG PO (12:57)
[2019-01-26] MEDS ORDERED: ELIQUIS5 M1 PO (12:58)
--- NOTE | 2019-01-26 12:59 | NUR ---
PATIENT'S DAUGHTER CALLED IN WITH PATIENT'S LIST OF HOME MEDICATIONS. MED REC UPDATED USING THIS INFORMATION.
--- NOTE | 2019-01-26 15:33 | NUR ---
[facility]er Chief Delivery in to talk to patient. Patient states lives at home alone with her family checking in on her. There are 0 steps in the home. Physician: Alisha Ballard Pharmacy: [facility] Home health services: would like [facility] nursing on discharge Patient's level of ADLs: MINIMAL ASSIST Patient has working utilities: yes DME: walker, O2 @ 2L nc, portable O2 tanks, O2 supplier unknown Follow-up physician's appointment after d/c: will be made by the hospitalist nurse director upon discharge Does patient want to access PORTAL?: no Discharge plan discussed with patient. She lives at home alone with her family checking in on her. She is independent in her ADLs and ambulates with a walker. Discussed short term SNF and she refuses. Discussed home health care services and she is agreeable. When provided with a list of agencies she chose [facility]. When medically stable she will be discharged to home with [facility] services. She states her daughter will provide transportation on discharge. AUNG COLÓN
[2019-01-26 17:24] LABS: BASO % 0.6 % (0.0-1.0); EOS # 0.2 10*3/uL (0.0-0.4); EOS % 3.1 % (1.0-4.0); HEMATOCRIT 25.8 % (37.0-47.0); HEMOGLOBIN 7.7 g/dl (12.0-16.0); LYMPH # 1.1 10*3/uL (1.3-4.4); LYMPH % 19.6 % (27.0-41.0); MEAN CORPUSCULAR HGB 25.7 pg (27.0-31.0); MEAN CORPUSCULAR HGB CONC 29.8 g/dl (33.0-37.0); MEAN PLATELET VOLUME 9.5 fl (9.6-12.3); MONO # 0.8 10*3/uL (0.1-1.0); MONO % 13.8 % (3.0-9.0); NEUT # 3.4 10*3/uL (2.3-7.9); NEUT % 62.7 % (47.0-73.0); NUCLEATED RED BLOOD CELL 0.4 % (0.0-0.0); PLATELET COUNT AUTOMATED 233 10*3/uL (130-400); RED CELL DISTRI WIDTH 15.4 % (0-14.5); WHITE BLOOD COUNT 5.5 10*3/uL (4.8-10.8)
--- NOTE | 2019-01-26 17:38 | NUR ---
DR. LIRA PHONED WITH H & H RESULT. OBTAINED ORDER FOR CBC IN AM AND CALL RESULT AND EGD COLONOSCOPY WITH DR. LIRA TOMORROW.
--- NOTE | 2019-01-26 18:29 | NUR ---
SPOKE WITH PATIENT'S DAUGHTER DORIS MELTON TO NOTIFY HER OF PLANS FOR EGD/COLO TOMORROW. PER DORIS, PATIENT DOES SIGN HER OWN CONSENTS, HAS A HISTORY OF DEMENTIA -SUNDOWNERS USUALLY AFTER SPENDING A NIGHT OR TWO IN HOSPITALS, IS FORGETFUL, BUT ORIENTED IN THE DAYTIME. PATIENT WAS ABLE TO COMPLETE THE PREOP QUESTIONAIRE WITHOUT DIFFICULTY AND SIGNED THE INTERVIEW.
--- NOTE | 2019-01-26 19:15 | NUR ---
PT IS AWAKE AND SITTING UP IN BED AT THIS TIME. RESPS ARE EASY AND NONLABORED, 2L O2 VIA NC IN USE. PT STATES THAT SHE IS FEELING WELL AT THIS TIME AND HAS NO COMPLAINTS. BED IS LOW, CALL LIGHT WITHIN REACH, WILL CONTINUE TO MONITOR.
--- NOTE | 2019-01-26 21:24 | NUR ---
24 HR CHART CHECK COMPLETE
[2019-01-27] VITALS (7 sets, daily range): BP systolic 108–128; BP diastolic 47–71
[2019-01-27 06:31] LABS: BASO % 0.4 % (0.0-1.0); EOS # 0.3 10*3/uL (0.0-0.4); EOS % 4.9 % (1.0-4.0); HEMATOCRIT 27.5 % (37.0-47.0); LYMPH # 0.8 10*3/uL (1.3-4.4); LYMPH % 14.7 % (27.0-41.0); MEAN CELL VOLUME 86.5 fl (81.0-99.0); MEAN CORPUSCULAR HGB 25.2 pg (27.0-31.0); MEAN CORPUSCULAR HGB CONC 29.1 g/dl (33.0-37.0); MEAN PLATELET VOLUME 9.1 fl (9.6-12.3); MONO # 0.7 10*3/uL (0.1-1.0); NEUT # 3.5 10*3/uL (2.3-7.9); NEUT % 66.6 % (47.0-73.0); PLATELET COUNT AUTOMATED 223 10*3/uL (130-400); RED BLOOD COUNT 3.18 10*6/uL (4.10-5.10); RED CELL DISTRI WIDTH 15.5 % (0-14.5); WHITE BLOOD COUNT 5.3 10*3/uL (4.8-10.8)
--- NOTE | 2019-01-27 06:51 | NUR ---
ATTEMPTED TO CALL DR LIRA TO RELAY LABS. AWAITING CALL BACK
[2019-01-27 06:53] LABS: BUN 12 mg/dl (7-24); CHLORIDE 107 mmol/L (98-107); CREATININE 0.92 mg/dL (0.55-1.02); POTASSIUM 3.8 mmol/L (3.5-5.1); SODIUM 139 mmol/L (136-145)
--- NOTE | 2019-01-27 09:00 | NUR ---
Healthcare Administrator in to see patient. No new needs or request at this time. When medically stable she will be discharged to home with [facility] services. Chest x-ray shows pneumonia treating with rocephin and zithromax. + . Cardiology and GI consults.
--- NOTE | 2019-01-27 09:07 | NUR ---
DR. LIRA NOTIFIED OF MOST RECENT H&H RESULT.
--- NOTE | 2019-01-27 10:15 | NUR ---
PATIENT TO OR BY BED FOR EGD/COLO PROCEDURE AT THIS TIME.
--- NOTE | 2019-01-27 10:56 | NUR ---
CEO faxed new referral to [facility]. Will fax face to face when avaialble. -DONNA Spain
--- NOTE | 2019-01-27 10:58 | NUR ---
Patient not available for Occupational Therapy as she is out of her room for and EDG/colonoscopy procedure. Sue Zimmerman OTR/L
--- NOTE | 2019-01-27 12:29 | NUR ---
Attempted PT evaluation but patient was not in her room, per SN pt was out for an EGD/colo. PT will attempt evaluation another time. Lamar Ortiz, PT.
--- NOTE | 2019-01-27 12:30 | NUR ---
PATIENT RETURNED FROM EGD/COLO PROCEDURE, RESUMING REGULAR DIET ORDERED BY DR. LIRA, SEE SHIFT ASSESSMENT FOR DETAILS.
--- NOTE | 2019-01-27 14:15 | NUR ---
Occupational Therapy evaluation completed on 4 with full eval to follow. Precautions include fallrisk; bed alarm, impaired memory, IV UE O2 use, impulsive, moderate complexity level 19081. Recommend OT per pOC and return home with home health SN ,OT,PT upon d/c. Thank you. Sue Zimmerman OTR/l
--- NOTE | 2019-01-27 15:16 | NUR ---
PT Evaluation completed on 4th floor. Pt wearing oxygen via NC. Pt cooperative and participative. Pt will benefit from continued PT and discussed with pt to continue home health at home upon hospital DC. Moderate complexity PT vanessa completed. Pt to use walker when up. Bed alarm on. Call button in pt's hand upon my departure. Thank you for this referral, Lamar Ortiz, PT.
[2019-01-28] VITALS: BP 104/57
[2019-01-28 08:00] VITALS: BP 112/54
[2019-01-28 08:16] LABS: BASO % 0.4 % (0.0-1.0); EOS # 0.2 10*3/uL (0.0-0.4); EOS % 3.7 % (1.0-4.0); HEMATOCRIT 28.2 % (37.0-47.0); HEMOGLOBIN 8.2 g/dl (12.0-16.0); LYMPH % 21.2 % (27.0-41.0); MEAN CELL VOLUME 87.9 fl (81.0-99.0); MEAN CORPUSCULAR HGB 25.5 pg (27.0-31.0); MEAN CORPUSCULAR HGB CONC 29.1 g/dl (33.0-37.0); MEAN PLATELET VOLUME 9.6 fl (9.6-12.3); MONO # 0.6 10*3/uL (0.1-1.0); NEUT # 3.1 10*3/uL (2.3-7.9); NEUT % 62.5 % (47.0-73.0); PLATELET COUNT AUTOMATED 204 10*3/uL (130-400); RED BLOOD COUNT 3.21 10*6/uL (4.10-5.10); RED CELL DISTRI WIDTH 15.8 % (0-14.5); WHITE BLOOD COUNT 4.9 10*3/uL (4.8-10.8)
--- NOTE | 2019-01-28 09:00 | NUR ---
Relay Mechanic in to see patient. No new needs or request at this time. When medically stable she will be discharged to home with [facility] services. Chest x-ray shows pneumonia treating with rocephin and zithromax. +UC. BC-. EGD gastritis and hiatal hernia. [place] diverticulosis and colon polyp. Hgb 8.2.
--- NOTE | 2019-01-28 10:20 | NUR ---
OT NOTE Pt was seen this A.M. 1:1 for 15 minute OT session. Upon arrival pt was supine in bed. Pt identified by name and and had no complaints at this time. Pt presented to therapy with continuous 2L-O2 via NC which she remained on throughout the entire session. Pt transferred supine to sit EOB with supervision. While sitting EOB pt donned B socks with SBA. Sit to stand completed from bed level with CGA and use of w/w for UE support. Functional mobility was then completed to the bathroom with CGA and use of w/w. Pt transferred on/off standard commode with SBA and use of grab bar for UE support. Pt then stood sink side while washing her hands with CGA for safety. Throughout all mobility and ADL tasks pt required verbal prompts for walker safety due to attempting to walk away without it. Pt then transferred back into bed sit to supine with supervision, there she was left with call light in hand, tray table in place, and phone in reach. Continue with rec D/C plan to home with home health. TRUE Kenny/Gabriella
--- NOTE | 2019-01-28 10:33 | NUR ---
PHYSICAL THERAPY Patient presented to therapy in supine with 2 liters of spO2 via nasal canula. Patient has no complaints of pain or other issues. Patient was identified by name and on wristband. Patient gives informed consent for treatment. Patient performed supine to sitting at EOB transfer with SBA. Patient performed sit to stand from EOB with SBA. Patient ambulated with Wh Walker and CGA X 1 for 300' x 1 with no LOB, SOB or other difficulty. Patient transferred on and off of a low chair with SBA. Patient transferred back to supine in bed with SBA. Patient was left in supine with head of bed elevated, call light within reach and bed alarm off. Patient was 1:1 with this LAND CONSERVATION SPECIALIST for 15 minutes total.
[2019-01-28 12:00] VITALS: BP 117/55
--- NOTE | 2019-01-28 14:21 | NUR ---
PHYSICAL THERAPY Patient presented to therapy in supine with head of bed elevated and report of feeling pretty good this afternoon. Patient gives informed consent for treatment. Patient identified by name and on wristband. Patient performed supine to sitting at EOB transfer with SBA. Patient sit to stand transfer from EOB with SBA. Patient performed ambulation with Wh Walker and CGA X 1 for 400' x 1 with no LOB or other difficulty. Patient transferred back to supine in bed with SBA. Patient was left in supine in bed with head of bed elevated and call alarm within reach. Patient ambulates too and from restroom on her own throughout the day in her room. Patient was 1:1 with this ENGRAVING PLATE MAKER for 15 minutes total for afternoon treatment. Time in 1:56 -- time out 2:11. DELBERT ZAPIEN ENGRAVING PLATE MAKER
[2019-01-28 16:00] VITALS: BP 130/68
[2019-01-28 20:00] VITALS: BP 132/58
[2019-01-29] VITALS (9 sets, daily range): BP systolic 101–137; BP diastolic 46–84
[2019-01-29 06:33] LABS: BASO % 0.7 % (0.0-1.0); EOS # 0.2 10*3/uL (0.0-0.4); EOS % 4.3 % (1.0-4.0); HEMATOCRIT 28.4 % (37.0-47.0); HEMOGLOBIN 8.2 g/dl (12.0-16.0); LYMPH # 0.9 10*3/uL (1.3-4.4); LYMPH % 22.2 % (27.0-41.0); MEAN CELL VOLUME 87.4 fl (81.0-99.0); MEAN CORPUSCULAR HGB 25.2 pg (27.0-31.0); MEAN CORPUSCULAR HGB CONC 28.9 g/dl (33.0-37.0); MEAN PLATELET VOLUME 9.8 fl (9.6-12.3); MONO # 0.6 10*3/uL (0.1-1.0); MONO % 15.3 % (3.0-9.0); NEUT # 2.4 10*3/uL (2.3-7.9); PLATELET COUNT AUTOMATED 201 10*3/uL (130-400); RED BLOOD COUNT 3.25 10*6/uL (4.10-5.10); RED CELL DISTRI WIDTH 15.7 % (0-14.5); WHITE BLOOD COUNT 4.2 10*3/uL (4.8-10.8)
[2019-01-29 06:59] LABS: BUN 8 mg/dl (7-24); CHLORIDE 110 mmol/L (98-107); CREATININE 0.95 mg/dL (0.55-1.02); POTASSIUM 4.3 mmol/L (3.5-5.1); SODIUM 141 mmol/L (136-145)
--- NOTE | 2019-01-29 08:00 | NUR ---
VITAL SIGNS ARE STABLE. PT IS RESTING IN BED AT THIS TIME. SHE IS A&OX3. PLEASANT AND COOPERATIVE. SANKET. PATIENTS LUNG SOUNDS ARE DIMINISHED WITH CRACKLES IN THE BASES. SHE DOES HAVE AN OCCASINAL MOIST PRODUCTIVE COUGH WITH "LIGHT YELLOW SPUTUM". PATIENT IS O2 DEPENDENT ON 2 LITERS VIA NASAL CANNULA. HER HEART SOUNDS ARE NORMAL. ABDOMEN IS SOFT, NON TENDER AND NON DISTENDED. BOWEL SOUNDS X4. PATIENT AMBULATED TO THE BATHROOM THIS AM AND NOTES THAT HER LAST BM WAS THIS MORNING SHE STATES THAT "THERE WAS ALOT OF BROWN SOFT STOOL". SKIN IS INTACT. WARM, PINK, DRY AND NON TENTING. PATIENT HAS A 20G IV IN THE LEFT ARM WITH NO ERRYTHEMA OR EDEMA. THE PATIENT DENIES ANY PAIN/ DISCOMFORT AT THIS TIME. PATIENT REMAINS NPO FOR TRANSESOPHAGEAL CARDIOGRAM.
--- NOTE | 2019-01-29 08:53 | NUR ---
OT NOTE Pt was seen this A.M. 1:1 for 16 minute OT session. Upon arrival pt was supine in bed. Pt identified by name and and had no complaints at this time. Pt presented to therapy with continuous 2L-O2 via NC which she remained on throughout the entire session. Pt transferred supine to sit EOB with supervision. Sit to stand completed from bed level with SBA and use of w/w for UE support. Functional mobility was then completed to the bathroom with SBA and use of w/w. there she transferred on/off standard commode with supervision and use of grab bar for UE support. Pt then stood sink side while washing her hands with SBA. Throughout session pt required multiple verbal prompts for using the walker due to walking away without it. pt was left supine in bed with call light in hand, tray table in place, and phone in reach. Continue with rec D/C plan to home with home health. TRUE Kenny/Gabriella
--- NOTE | 2019-01-29 09:00 | NUR ---
PT TAKEN TO SURGERY FOR HELENA.
--- NOTE | 2019-01-29 09:21 | NUR ---
PT TAKEN TO SURGERY VIA CART. HOLLIE ALLAN SPNRCC
--- NOTE | 2019-01-29 09:41 | NUR ---
PHYSICAL THERAPY Patient presented to therapy in supine with head of bed elevated and report of no pain or other complaints. Patient is presently on 2 liters of spO2 VIA NASAL CANULA. Patient gives informed consent for treatment. Patient was identified by name and of wristband. Patient transferred from supine to sitting at EOB to sit to stand from EOB with SBA. Patient took off O2 nasal canula saying, "she doesn't need it to walk". Patient O2 sat recorded as 92% prior to ambulating and pulse at 100. Patient ambulated with Wh Walker and close supervision for 420' x 1 with no LOB or SOB without spO2. Patient's O2 sat recorded as 94% and pulse at 108 post ambulating 420' x 1. Patient transferred back to supine in bed with SBA. Patient was left in supine in bed with head of bed elevated, call light within reach and tray table near patient. Patient ambulates too and from restroom in her room throughout the day on her own. Patient attached to wall outlet with 2 liters of spO2 via nasal canula. Patient was 1:1 with this ACTIMIZE ARCHITECT for 18 minutes total. DELBERT ZAPIEN ACTIMIZE ARCHITECT
--- NOTE | 2019-01-29 12:04 | NUR ---
PATIENT HAS RETURNED FROM HER HLEENA PROCEDURE. VITAL SIGNS STABLE. NO STRIDOR. PATIENT IS RESTING IN POSITION OF COMFORT. SHE HAS NO COMPLAINTS AT THIS TIME. HOLLIE BARRETT.
[2019-01-29] MEDS ORDERED: PROPAFENONE HC150 MG PO (12:09)
--- NOTE | 2019-01-29 14:47 | NUR ---
PHYSICAL THERAPY CO-SIGN I approve of the Physical Therapy notes written above. Mary Del Toro PT
--- NOTE | 2019-01-29 14:51 | NUR ---
Discharge instructions reviewed with patient/family. Patient receptive and verbalizes understanding. Follow-up care arranged. Written instructions given to patient/family. HE[place]OCK DISCONTINUED. PATIENT AMBULATORY OFF FLOOR WITH FAMILY MEMEBER. ALVERTO MELO
--- NOTE | 2019-02-02 07:35 | NUR ---
OCCUPATIONAL THERAPY CO-SIGN I approve of the Occupational Therapy notes written above. ELROY BERGER OTR/Gabriella
== END 2019-01-29 14:50 | disposition home health service (06) | DRG 377 ==
LOC: ED 19:11 → 5E 21:28 → EDHOLD 21:28 → 4E 21:28 → 5E 01-27 18:31
PROVIDERS: Emergency Medicine; Family Medicine; Internal Medicine Gastroenterology; Student in an Organized Health Care Education/Training Program; ADMIT Internal Medicine
DX: K29.71 Gastritis, unspecified, with bleeding (principal); J18.9 Pneumonia, unspecified organism; N17.0 Acute kidney failure with tubular necrosis; E43 Unspecified severe protein-calorie malnutrition; E87.2 Acidosis; D62 Acute posthemorrhagic anemia; R19.5 Other fecal abnormalities; K57.91 Diverticulosis of intestine, part unspecified, without perforation or abscess with bleeding; I25.10 Atherosclerotic heart disease of native coronary artery without angina pectoris; K21.9 Gastro-esophageal reflux disease without esophagitis; D72.819 Decreased white blood cell count, unspecified; E11.65 Type 2 diabetes mellitus with hyperglycemia; G47.33 Obstructive sleep apnea (adult) (pediatric); E61.1 Iron deficiency; J43.9 Emphysema, unspecified; E55.9 Vitamin D deficiency, unspecified; E53.8 Deficiency of other specified B group vitamins; I50.9 Heart failure, unspecified; E66.3 Overweight; F03.90 Unspecified dementia, unspecified severity, without behavioral disturbance, psychotic disturbance, mood disturbance, and anxiety; I48.0 Paroxysmal atrial fibrillation; K44.9 Diaphragmatic hernia without obstruction or gangrene; K63.5 Polyp of colon; Z91.14 Patient's other noncompliance with medication regimen; Z68.27 Body mass index [BMI] 27.0-27.9, adult; Z88.1 Allergy status to other antibiotic agents; I25.2 Old myocardial infarction; Z99.81 Dependence on supplemental oxygen; Z95.5 Presence of coronary angioplasty implant and graft; Z90.711 Acquired absence of uterus with remaining cervical stump; Z86.73 Personal history of transient ischemic attack (TIA), and cerebral infarction without residual deficits; Z95.818 Presence of other cardiac implants and grafts; Z98.42 Cataract extraction status, left eye; Z98.41 Cataract extraction status, right eye; Z79.02 Long term (current) use of antithrombotics/antiplatelets; Z79.899 Other long term (current) drug therapy

== ENCOUNTER 2019-02-09 11:34 | Inpatient (IN) | payer MEDICARE, MEDICAID ==
[~2019-02-09] VITALS: Ht 170.2 cm; Wt 77.7 kg
[~2019-02-09 11:34] MED LIST changes: +NATURE'S BLEND F1 MG PO
[2019-02-09 11:36] VITALS: BP 133/90
[2019-02-09 12:05] LABS: BASO % 0.3 % (0.0-1.0); EOS # 0.1 10*3/uL (0.0-0.4); HEMATOCRIT 32.9 % (37.0-47.0); HEMOGLOBIN 9.6 g/dl (12.0-16.0); LYMPH % 27.9 % (27.0-41.0); MEAN CELL VOLUME 84.4 fl (81.0-99.0); MEAN CORPUSCULAR HGB 24.6 pg (27.0-31.0); MEAN CORPUSCULAR HGB CONC 29.2 g/dl (33.0-37.0); MEAN PLATELET VOLUME 8.7 fl (9.6-12.3); MONO # 0.4 10*3/uL (0.1-1.0); MONO % 12.3 % (3.0-9.0); NEUT # 2.1 10*3/uL (2.3-7.9); NEUT % 57.2 % (47.0-73.0); PLATELET COUNT AUTOMATED 209 10*3/uL (130-400); RED CELL DISTRI WIDTH 17.2 % (0-14.5); WHITE BLOOD COUNT 3.6 10*3/uL (4.8-10.8)
[2019-02-09 12:19] LABS: CREATININE 1.18 mg/dL (0.55-1.02); POTASSIUM 3.5 mmol/L (3.5-5.1); TOTAL PROTEIN 7.1 gm/dL (6.4-8.2)
[2019-02-09 17:33] LABS: BILIRUBIN NEGATIVE (NEGATIVE); BLOOD NEGATIVE (NEGATIVE); CLARITY SL CLOUDY (CLEAR); COLOR YELLOW (YELLOW); GLUCOSE NEGATIVE (NEGATIVE); KETONE TRACE (NEGATIVE); LEUKO ESTERASE NEGATIVE (NEGATIVE); NITRITE NEGATIVE (NEGATIVE); PH 5.5 (5.0-9.0); SPECIFIC GRAVITY 1.015 (1.005-1.030); UROBILINOGEN 0.2 E.U./dl (0.2-1.0)
[2019-02-09 17:39] LABS: BACTERIA 2+; HYALINE CAST 0-2; RBC 0-2 rbc/hpf (0-2); WBC 0-2 wbc/hpf (0-5)
[2019-02-09 18:45] VITALS: BP 102/77
--- NOTE | 2019-02-09 18:46 | NUR ---
A 73, admitted to , under the services of JED Jurado DO with a diagnosis of COPD exacerbation. Chief complaint is weakness. Patient arrived via stretcher from ER. Monitor applied. Initial assessment completed. Vital signs taken and recorded. JED JURADO DO notified of admission to the unit. Orders received. See assessment for past medical history, medications and allergies. Patient and/or family oriented to unit. [address] visitation policy reviewed. Clothing/patient valuable form completed. THELMA PABLO
--- NOTE | 2019-02-09 19:13 | NUR ---
PT'S RESP STATUS ASSESSED FOR DA. NOT INDICATED AT THIS TIME. BBSs CLEAR WITH GOOD AERATION. SPO2 ON RA 99%
[2019-02-09] MEDS ORDERED: PANTOPRAZOLE SO40 MG PO (19:38)
[2019-02-09 20:00] VITALS: BP 115/53
--- NOTE | 2019-02-09 20:30 | NUR ---
PATIENT IS RESTING IN BED WITH EASY AND REGULAR RESPERS ON ROOM AIR. ASSESSMENT IS COMPLETE WITH NO S/S OF DISTRESS NOTED AT THIS TIME OR C/O . BED IS LOW, LOCKED, ALARMED, AND CALL LIGHT IS WITHIN REACH. WILL CONTINUE TO MONITOR, SEE SHIFT ASSESSMENT.
[2019-02-10] VITALS: BP 118/70
--- NOTE | 2019-02-10 | NUR ---
SLEEPING WITH EASY AND REGULAR RESPERS ON ROOM AIR. NO S/S OF DISTRESS NOTED AT THIS TIME.
--- NOTE | 2019-02-10 04:00 | NUR ---
RESTING IN BED WITH NO C/O OR S/S OF DISTRESS NOTED AT THIS TIME. CALL LIGHT IS WITHIN REACH.
[2019-02-10 06:26] LABS: BASO % 0.4 % (0.0-1.0); HEMOGLOBIN 9.3 g/dl (12.0-16.0); LYMPH # 0.5 10*3/uL (1.3-4.4); LYMPH % 20.5 % (27.0-41.0); MEAN CELL VOLUME 85.5 fl (81.0-99.0); MEAN CORPUSCULAR HGB 24.1 pg (27.0-31.0); MEAN CORPUSCULAR HGB CONC 28.2 g/dl (33.0-37.0); MEAN PLATELET VOLUME 9.4 fl (9.6-12.3); MONO # 0.1 10*3/uL (0.1-1.0); MONO % 3.4 % (3.0-9.0); NEUT % 75.3 % (47.0-73.0); PLATELET COUNT AUTOMATED 229 10*3/uL (130-400); RED BLOOD COUNT 3.86 10*6/uL (4.10-5.10); RED CELL DISTRI WIDTH 17.2 % (0-14.5); WHITE BLOOD COUNT 2.6 10*3/uL (4.8-10.8)
[2019-02-10 06:35] LABS: ALBUMIN 2.7 gm/dl (3.1-4.5); ALKALINE PHOSPHATASE 73 U/L (45-117); BUN 14 mg/dl (7-24); CHLORIDE 106 mmol/L (98-107); CHOLESTEROL 137 mg/dL (<200); CREATININE 0.97 mg/dL (0.55-1.02); FREE T4 0.77 ng/dl (0.76-1.46); HDL CHOLESTEROL 29 mg/dl (40-60); LDL CHOLESTEROL 90 mg/dL (9-159); PHOSPHOROUS 3.7 mg/dL (2.5-4.9); POTASSIUM 3.6 mmol/L (3.5-5.1); SGOT/AST 15 IU/L (3-35); SGPT/ALT 10 U/L (12-78); SODIUM 142 mmol/L (136-145); TOTAL PROTEIN 6.9 gm/dL (6.4-8.2); TRIGLYCERIDES 91 mg/dl (<150); VLDL CHOLESTEROL 18 mg/dL (6-40)
[2019-02-10 07:09] LABS: VITAMIN D, 25-HYDROXY 29.2 ng/mL (30-100)
--- NOTE | 2019-02-10 09:16 | NUR ---
MADE AWARE THAT PT HEART RATE HAS BEEN MAINTAINING 120s. SAID HE WOULD SEE HER DURING ROUNDS.
[2019-02-10] MEDS ORDERED: PROPAFENONE HC150 MG PO (10:30)
--- NOTE | 2019-02-10 10:38 | NUR ---
MED REC UPDATED. DAUGHTER ALSO REQUESTING COMPETENCY EVALUATION. NOTIFIED OF ALL.
[2019-02-10 12:00] VITALS: BP 122/75
--- NOTE | 2019-02-10 14:45 | NUR ---
NOTIFIED OF HR 120-130s AFTER RHYTHMOL WAS GIVEN. SAID HE WOULD COME TO SEE PT.
[2019-02-10 16:00] VITALS: BP 108/53
--- NOTE | 2019-02-10 17:15 | NUR ---
Nurse called for PRN tx. Tx given. Pt on 2L NC and SpO2 99%. HR 110's
--- NOTE | 2019-02-10 18:13 | NUR ---
NOTIFIED HR 120s. SAID OK AND NOT CONCERNED. ORDERED TO CONTINUE MONITOR.
--- NOTE | 2019-02-10 19:00 | NUR ---
Patient resting quietly with no c/o discomfort. Respirations easy and regular. Vital signs stable. No overt distress. RONNY MACHADO
[2019-02-10 20:00] VITALS: BP 122/64
--- NOTE | 2019-02-10 23:10 | NUR ---
IS AWARE THAT PATIENTS HEART RATE IS STEADILY IN 120'S. STATED OK.
[2019-02-11] VITALS (9 sets, daily range): BP systolic 102–129; BP diastolic 4–85
--- NOTE | 2019-02-11 01:55 | NUR ---
24 HR chart check completed.
[2019-02-11 06:32] LABS: HEMATOCRIT 31.1 % (37.0-47.0); HEMOGLOBIN 8.9 g/dl (12.0-16.0); MEAN CELL VOLUME 84.1 fl (81.0-99.0); MEAN CORPUSCULAR HGB 24.1 pg (27.0-31.0); MEAN CORPUSCULAR HGB CONC 28.6 g/dl (33.0-37.0); MEAN PLATELET VOLUME 9.2 fl (9.6-12.3); PLATELET COUNT AUTOMATED 251 10*3/uL (130-400); RED CELL DISTRI WIDTH 17.4 % (0-14.5); WHITE BLOOD COUNT 5.8 10*3/uL (4.8-10.8)
[2019-02-11 06:46] LABS: ALBUMIN 2.8 gm/dl (3.1-4.5); ALKALINE PHOSPHATASE 71 U/L (45-117); BUN 22 mg/dl (7-24); CHLORIDE 106 mmol/L (98-107); CREATININE 0.95 mg/dL (0.55-1.02); POTASSIUM 3.9 mmol/L (3.5-5.1); SGOT/AST 9 IU/L (3-35); SGPT/ALT 9 U/L (12-78); SODIUM 138 mmol/L (136-145); TOTAL PROTEIN 6.9 gm/dL (6.4-8.2)
[2019-02-11 07:03] LABS: PLATELET SUFFICIENCY NORMAL (NORMAL); TOTAL CELLS COUNTED 100 #CELLS
[2019-02-11 07:04] LABS: OVALOCYTES FEW
--- NOTE | 2019-02-11 07:30 | NUR ---
FLOW NURSE TECH CALLS AND STATES THAT THIS PATIENT HEART RATE IS IN 130S AND THAT IT APPEARS THAT SHE IS IN/OUT OF A FIB AND SINUS TACHYCARDIA. UPON ASSESSING PATIENT, PT STATES THAT SHE DOES NOT HAVE CHEST PAIN AND STATES THAT SHE DOES HAVE SOME "BURNING" TO HER CHEST. PT STATES THAT IT MAY BE "ACID INDIGESTION BECAUSE SHE DOES HAVE A HX OF THAT". EKG PER NURSING MEASURE ORDER PLACED. DR OROZCO NOTIFIED OF THIS AND STATES THAT HE WILL BE UP TO FLOOR TO SEE PATIENT. ALL OTHER VITAL SIGNS ARE WNL. PT DOES NOT SHOW S/S OF ANY DISTRESS. WILL CONTINUE TO MONITOR. CALL LIGHT IN REACH.
--- NOTE | 2019-02-11 09:00 | NUR ---
Administrative Assistant Coordinator in to talk to patient. Patient states lives at home with alone. There are few steps in the home. Physician: [facility]acy[facility] Home health services: [facility] Patient's level of ADLs: MINIMAL ASSIST Patient has working utilities: all working DME: walker, home oxygen portable tanks from [facility] Follow-up physician's appointment after d/c: will be made by hospitalist nurse director upon discharge Does patient want to access PORTAL?: no Discharge plan discussed with patient, she states she lives at home alone, she is independent in adls and ambulation with a walker, she has home oxygen and portable tanks from [facility], she currently has [facility] and would like them to continue when medically stable for discharge. she denies any other home needs. LULA HENAO
--- NOTE | 2019-02-11 16:00 | NUR ---
PT HEART RATE HOLDING STEADY AT 130. DR OROZCO NOTIFIED. NO ORDERS RECEIVED AT THIS TIME. PT DENIES CHEST PAIN/PRESSURE. ALL OTHER VITALS ARE WNL. WILL CONTINUE TO MONITOR. CALL LIGHT IN REACH.
--- NOTE | 2019-02-11 16:49 | NUR ---
CONSULT CALLED VIA ANSWERING SERVICE. MESSAGE LEFT PER INSTRUCTIONS ON ANSWERING SERVICE. AWAITING CALL BACK
--- NOTE | 2019-02-11 16:58 | NUR ---
SPOKE WITH DR GRIFFITHS REGARDING CONSULT, NEW ORDERS RECEIVED FOR DILTIAZEM 15 MG VIA IV NOW. PHYSICIAN STATES THAT HE WILL SEE PATIENT IN THE MORNING.
--- NOTE | 2019-02-11 18:50 | NUR ---
Hep Lock discontinued to left antecubital. Site asymptomatic. Pressure applied. Sterile dressing applied. TRAVIS BONNER
--- NOTE | 2019-02-11 18:55 | NUR ---
IV started right antecubital with #22 protective cath after 0 attempts. Site prepped with Chloroprep. Sterile dressing applied. Patient tolerated procedure well. IV SITE LOCKED WITH SALINE AT THIS TIME. TRAVIS BONNER
--- NOTE | 2019-02-11 19:15 | NUR ---
Patient resting quietly with no c/o discomfort. Respirations easy and regular. Vital signs stable. No overt distress. RONNY MACHADO
[2019-02-12] VITALS: BP 132/87
--- NOTE | 2019-02-12 01:24 | NUR ---
PATIENT CONVERTED BACK TO NSR.
--- NOTE | 2019-02-12 02:02 | NUR ---
PATIENT IS BACK IN AFIB PER CM
[2019-02-12 06:19] LABS: BUN 23 mg/dl (7-24); CHLORIDE 100 mmol/L (98-107); CREATININE 1.05 mg/dL (0.55-1.02); POTASSIUM 3.7 mmol/L (3.5-5.1); SODIUM 137 mmol/L (136-145)
[2019-02-12 06:30] LABS: HEMATOCRIT 30.3 % (37.0-47.0); HEMOGLOBIN 8.8 g/dl (12.0-16.0); MEAN CELL VOLUME 85.4 fl (81.0-99.0); MEAN CORPUSCULAR HGB 24.8 pg (27.0-31.0); MEAN PLATELET VOLUME 9.3 fl (9.6-12.3); PLATELET COUNT AUTOMATED 231 10*3/uL (130-400); RED BLOOD COUNT 3.55 10*6/uL (4.10-5.10); RED CELL DISTRI WIDTH 17.2 % (0-14.5); WHITE BLOOD COUNT 6.5 10*3/uL (4.8-10.8)
[2019-02-12 07:25] LABS: PLATELET SUFFICIENCY NORMAL (NORMAL); TOTAL CELLS COUNTED 100 #CELLS
[2019-02-12 07:26] LABS: OVALOCYTES FEW
[2019-02-12 08:00] VITALS: BP 120/70; BP 134/68
--- NOTE | 2019-02-12 09:00 | NUR ---
case management visits with patient, she will return home when medically stable and [facility] will be resumed, case management will follow
--- NOTE | 2019-02-12 09:09 | NUR ---
ARRIVED ON SHIFT, INTRODUCED TO PATIENT, NO NEEDS VOICED AT THIS TIME, WHITE BOARD UPDATED, REPORT RECEIVED.
--- NOTE | 2019-02-12 09:10 | NUR ---
Shift chart check completed.
[2019-02-12 12:00] VITALS: BP 128/78
--- NOTE | 2019-02-12 14:20 | NUR ---
PATIENT REPORTS INCREASED RELIEF FROM 2 NORCO VS 1 NORCO, REPORTS PAIN 3/10
--- NOTE | 2019-02-12 15:25 | NUR ---
CALL PLACED TO HOSPITALIST LINE SPOKE WITH DR. BARRON VOICED CONCERNS OVER AMOUNT OF POTENTIAL ACETAMINOPHEN PATIENT RECEIVED IN 24 HOURS. ADVISED HE WILL TAKE A LOOK.
[2019-02-12 16:00] VITALS: BP 103/59
[2019-02-12 20:00] VITALS: BP 111/69; BP 125/81
[2019-02-13] VITALS: BP 135/81
[2019-02-13 06:01] LABS: HEMATOCRIT 31.1 % (37.0-47.0); HEMOGLOBIN 8.9 g/dl (12.0-16.0); LYMPH # 0.9 10*3/uL (1.3-4.4); LYMPH % 13.6 % (27.0-41.0); MEAN CORPUSCULAR HGB 24.3 pg (27.0-31.0); MEAN CORPUSCULAR HGB CONC 28.6 g/dl (33.0-37.0); MEAN PLATELET VOLUME 9.8 fl (9.6-12.3); MONO # 0.4 10*3/uL (0.1-1.0); MONO % 6.5 % (3.0-9.0); NEUT # 5.2 10*3/uL (2.3-7.9); NEUT % 79.3 % (47.0-73.0); PLATELET COUNT AUTOMATED 246 10*3/uL (130-400); RED BLOOD COUNT 3.66 10*6/uL (4.10-5.10); RED CELL DISTRI WIDTH 17.5 % (0-14.5); WHITE BLOOD COUNT 6.6 10*3/uL (4.8-10.8)
[2019-02-13 06:15] LABS: CREATININE 1.12 mg/dL (0.55-1.02); POTASSIUM 3.6 mmol/L (3.5-5.1)
[2019-02-13 08:00] VITALS: BP 110/60
--- NOTE | 2019-02-13 11:54 | NUR ---
CALLED REGARDING DAUGHTER VOICING CONCERNS FOR HER MOTHER AT HOME. SHE STATES THAT HER MOM SOUNDS LIKE SHE IS ANSWERING QUESTIONS APPROPRIATELY BUT ACTUALLY THEY ARE NOT THE CORRECT ANSWERS. ALSO THE FAMILY SETS UP THE PATIENTS MEDICATIONS FOR HER AT HOME BUT WHEN THEY GO BACK THE PATIENT HAS NOT TAKEN THEM OR THEY NOTICE THAT NONE OF THE GROCERIES THEY HAVE PURCHASED ARE NOT GONE. FAMILY WOULD LIKE A COMPETENCY EVAL DONE AND PLACEMENT EVALUATION DONE.
[2019-02-13 12:00] VITALS: BP 123/92
[2019-02-13 16:00] VITALS: BP 126/78
--- NOTE | 2019-02-13 19:10 | NUR ---
Patient resting quietly with no c/o discomfort. Respirations easy and regular. HEART RATE REMAIN ELEVATED 100-120'S. No overt distress NOTED. CALL LIGHT WITHIN REACH RONNY MACHADO
[2019-02-13 20:00] VITALS: BP 125/82
[2019-02-14] VITALS (8 sets, daily range): BP systolic 120–137; BP diastolic 71–90
--- NOTE | 2019-02-14 04:42 | NUR ---
INFORMED THAT PATIENT HR IS STEADILY 130-131 AFTER GETTING UP TO RESTROOM. C/O PALPITIATIONS, PATIENT HAS NO OTHER COMPLAINTS. STATED TO INFORM CARDIOLOGY.
--- NOTE | 2019-02-14 04:52 | NUR ---
INFORMED OF INCREASED HR IN 130'S. STATED TO INCREASE LOPRESSOR TO 50MG AND GIVE A FIRST DOSE NOW. ORDERS PLACED PER WISHES.
--- NOTE | 2019-02-14 05:51 | NUR ---
HR 98-105 BPM AFIB PER CM.
--- NOTE | 2019-02-14 19:30 | NUR ---
INFORMED THAT HR HAS BEEN STEADILY 130'S ALL DAY, DAY TURN DR ARE APPARENTLY AWARE PER PRIOR NURSE. ASKED IF LOPRESSOR AND RYTHMOL CAN BE GIVEN EARLY AND RECHECK LATER. STATED THAT WAS OK.
--- NOTE | 2019-02-14 19:47 | NUR ---
CALLED AND STATED HE TALKED TO . SATTED TO START PATIENT ON CARDIZEM GTT STARTING AST 10MG/HR AND TITRATE NEEDED.
--- NOTE | 2019-02-14 20:06 | NUR ---
IV CARDIZEM GTT INITIATED, 5MG BLOUS GIVEN AND GTT STARTED AT 10MG/HR PER ORDERS. BP AT THIS TIME IS 126/70. WILL CONINTUE TO MARIELOS
--- NOTE | 2019-02-14 20:46 | NUR ---
CARDIZEM GTT DECREASED TO 2.5MG/HR. HEART RATE DECREASED TO 76 BPM FOR A SECON AND IMMEDIATELY INCREASED BACK UP TO 90'S. WILL MAINTAIN 2.5MG/HR AT THIS TIME. WILL CONTINUE TO MONITOR
--- NOTE | 2019-02-14 21:30 | NUR ---
PATIENT HR INCREASED TO 140 BPM PER CM AFTER GETTING UP TO CHANGE BRIEF. CARDIZEM GTT NOT CHANGED AT THIS TIME , WILL RE-EVALUATE ONCE PATIENT RELAXES IN BED.
--- NOTE | 2019-02-14 22:00 | NUR ---
IV started left arm with #22 protective cath after 0 attempts. Site prepped with Chloroprep. Sterile dressing applied. Patient tolerated procedure well. RONNY MACHADO
[2019-02-15] VITALS (14 sets, daily range): BP systolic 108–149; BP diastolic 51–82
--- NOTE | 2019-02-15 13:25 | NUR ---
HR AFIB/IRREGULAR RATE 100'S -110'S ON CARDIZEM DRIP RATE OF 5MG/HR. IV SITE TO RIGHT FOREARM PATENT AND ASYMPTOMATIC. INCREASED RATE OF DRIP TO 10MG/HR, PER ORDER TO TITRATE.
--- NOTE | 2019-02-15 14:24 | NUR ---
Snf order received for patient, also a Marylu Han consult revealed patient is not competent to make her own medical decisions. Contacted patient daughter and discussed discharge planning. Explained to her that because patient has used her 20 full pay snf days already and he secondary insurance is [place] medicaid, patient must stay in [place] for halfway. I also let her know there are no available beds in the [facility] facility so the next available place is [facility] in [facility]. She said that would creat a hardship on the family and asked when we would know if she had to go to skilled or not, I explained I am waiting on the physical therapy evaluation and then I would discuss with her further. Daughter stated she will discuss with other family members this evening and let us know tomorrow what they decided.
--- NOTE | 2019-02-15 15:15 | NUR ---
Occupational therapy orders received and chart reviewed. Patient was in bed upon arrival with HOB elevated. Patient is refusing an OT evaluation at this time stating, "I'm just too tired today." Patient was agreeable to completing an OT evaluation in the AM tomorrow. Thank you for the referral. Barby Acosta, OTR/L
--- NOTE | 2019-02-15 17:54 | NUR ---
HR IRREGULAR AFIB RATE 60'S -70'S ON CARDIZEM DRIP AT RATE OF 2.5MG/HR. PAGING DR. HENDRIX FOR ORDERS.
--- NOTE | 2019-02-15 18:13 | NUR ---
DR. HENDRIX NOTIFIED OF HR 70'S -80'S ON 2.5MG/HR RATE OF CARDIZEM DRIP, OBTAINED ORDER TO DISCONTINUE IV CARDIZEM.
--- NOTE | 2019-02-15 23:12 | NUR ---
PATIENT CONVERTED TO NSR AT THIS TIME
[2019-02-16] VITALS: BP 136/86
--- NOTE | 2019-02-16 02:27 | NUR ---
24 HR chart check completed.
[2019-02-16 07:02] LABS: HEMATOCRIT 33.5 % (37.0-47.0); LYMPH # 0.7 10*3/uL (1.3-4.4); LYMPH % 8.6 % (27.0-41.0); MEAN CELL VOLUME 82.9 fl (81.0-99.0); MEAN CORPUSCULAR HGB 24.8 pg (27.0-31.0); MEAN CORPUSCULAR HGB CONC 29.9 g/dl (33.0-37.0); MEAN PLATELET VOLUME 10.2 fl (9.6-12.3); MONO # 0.6 10*3/uL (0.1-1.0); MONO % 6.5 % (3.0-9.0); NEUT # 7.1 10*3/uL (2.3-7.9); NEUT % 83.7 % (47.0-73.0); PLATELET COUNT AUTOMATED 303 10*3/uL (130-400); RED BLOOD COUNT 4.04 10*6/uL (4.10-5.10); RED CELL DISTRI WIDTH 17.3 % (0-14.5); WHITE BLOOD COUNT 8.4 10*3/uL (4.8-10.8)
[2019-02-16 07:22] LABS: POTASSIUM 3.7 mmol/L (3.5-5.1)
[2019-02-16 07:27] LABS: CREATININE 1.27 mg/dL (0.55-1.02)
--- NOTE | 2019-02-16 07:50 | NUR ---
DR. BARRON NOTIFIED OF GLUCOSE RESULT ON BMP THIS MORNING.
[2019-02-16 08:00] VITALS: BP 112/60
--- NOTE | 2019-02-16 08:19 | NUR ---
PRESSURE WASHER received Surrogate Selection documents. Will need daughters signature to complete. A copy will be placed on patients chart when done. -DONNA Spain
--- NOTE | 2019-02-16 08:56 | NUR ---
HR 130'S UP TO 140 RESTING OR WITH AMBULATION, NO CHANGE IN RATE, REMAINS AFIB/IRREGULAR. PATIENT DENIES ANY CHEST PAIN, PALPITATIONS, SHORTNESS OF BREATH OR DIZZINESS WITH REST OR ACTIVITY. BP 112/60 AT THIS TIME. PAGING DR. HENDRIX FOR ORDERS.
--- NOTE | 2019-02-16 09:44 | NUR ---
DR. HENDRIX NOTIFIED OF HR AFIB, REMAINS 110'S -120'S AT THIS TIME, OBTAINED ORDER TO INCREASE METOPROLOL TO 100MG PO BID, GIVE ADDITIONAL 50MG PO NOW, AND GIVE 0.5MG IV DIGOXIN X 1 NOW.
--- NOTE | 2019-02-16 10:15 | NUR ---
Occupational Therapy evaluation completed on 4 with full eval to follow. Precautions include fall risk;bed alarm,impaired memory, CGA/min a for ADLs,SOB w/ mod exertion,moderate complexity level 31958. Recommend OT for ADL training, safety w/ ww, activity tolerance, UE str per POC and SNF to enable return home at max ability to function. Thank you. Teri Zimmerman OTR/L
--- NOTE | 2019-02-16 10:19 | NUR ---
ADMINISTERED PO LOPRESSOR 50MG PO X 1 AND DIGOXIN 5MG X 1 ORDERED; HR CURRENTLY 141 AFIB/IRREGULAR
--- NOTE | 2019-02-16 10:47 | NUR ---
HR AFIB RATE 100'S CURRENTLY AT REST.
--- NOTE | 2019-02-16 10:50 | NUR ---
PHYSICAL THERAPY Mavisal completed pt low complexity level 96436 recomend SNF vs Home with 24 hour care. PT to work on transfers, strengthening, balance and safety with use of FWW w ambulation Mary Del Toro PT
--- NOTE | 2019-02-16 11:19 | NUR ---
Attempted to contact both of patients daughters to discuss compentency eval results and discharge plans. Unable to contact either daughter, left voicemail to return call.
[2019-02-16 12:00] VITALS: BP 137/63
--- NOTE | 2019-02-16 12:54 | NUR ---
HR CURRENTLY 100'S AFIB/IRREGULAR.
--- NOTE | 2019-02-16 12:59 | NUR ---
Daughters agreeable to catch basin cleaner placement but only in [facility]" or [facility] in [facility]. Daughter called Anastasia, the rep for [facility]. Facility expects a discharge at the end of the week and asked for the referral to review. Faxed referral to [facility] for catch basin cleaner care/ waiting on review/acceptance.
[2019-02-16 16:00] VITALS: BP 132/60
--- NOTE | 2019-02-16 19:15 | NUR ---
Patient resting quietly with no c/o discomfort. Respirations easy and regular. Vital signs stable. No overt distress. CALL LIGHT WITHIN REACH RONNY MACHADO
[2019-02-16 20:00] VITALS: BP 146/62
[2019-02-17] VITALS: BP 124/81
--- NOTE | 2019-02-17 04:00 | NUR ---
PATIENT RESTING QUIETLY, EYES CLSOED. RESP ARE ERND. CALL LIGHT WITHIN REACH.
[2019-02-17 06:27] LABS: BUN 28 mg/dl (7-24); CHLORIDE 99 mmol/L (98-107); CREATININE 0.98 mg/dL (0.55-1.02); POTASSIUM 3.3 mmol/L (3.5-5.1); SODIUM 139 mmol/L (136-145)
[2019-02-17 08:00] VITALS: BP 144/66
[2019-02-17 12:00] VITALS: BP 126/59
--- NOTE | 2019-02-17 13:27 | NUR ---
PHYSICAL THERAPY Patient supine in bed at time of arrival; patient identified by name and . Patient consents to therapy this date. Bed mobility- patient transitions supine<>sit requiring SBA with use of bed rail. Patient completed seated B LE ther-ex, unsupported, EOB, for strength, endurance and function-- for performance of gait, transfers and functional mobility: marches, LAQs, ankle PF/DF 2x10 reps. Cues for technique and progression of exercises provided. Transfer training-- patient completed sit<>stand transfer EOB<->FWW requiring CGA/Bhavya with emphasis on safety with hand placement and eccentric control. Standing balance activities with 0-1xUE support and CGA-- reaching in all planes and crossing mid-line, and SLS x 10 sec holds, alternating legs, in order to improve balance/righting reactions during functional mobility to decrease fall risk. No LOB noted. Gait training-- patient ambulated with use of FWW and CGA, over level surfaces-- incorporating 90 and 180 degree directional changes for ~30'x2. Patient benefits from cues for safety with walker managment/proximity and environmental awareness due to patient staring at floor while ambulating. Patient seated EOB at session end with call light within reach. Patient has no c/o of pain and/or concerns this date. Nia Whitaker, SALES ACTIVITY MANAGER
[2019-02-17 16:00] VITALS: BP 148/76
--- NOTE | 2019-02-17 19:00 | NUR ---
Patient resting quietly with no c/o discomfort. Respirations easy and regular. Vital signs stable. No overt distress. RONNY MACHADO
[2019-02-17 20:00] VITALS: BP 115/51
[2019-02-18] VITALS: BP 139/73
--- NOTE | 2019-02-18 04:00 | NUR ---
PATIENT ASLEEP, EYES CLOSED. RESP ARE ERND ON ROOM AIR. CALL LIGTH WITHIN REACH
[2019-02-18 05:42] LABS: BASO % 0.1 % (0.0-1.0); EOS % 0.4 % (1.0-4.0); HEMATOCRIT 35.8 % (37.0-47.0); HEMOGLOBIN 10.9 g/dl (12.0-16.0); LYMPH # 1.9 10*3/uL (1.3-4.4); LYMPH % 17.1 % (27.0-41.0); MEAN CELL VOLUME 82.5 fl (81.0-99.0); MEAN CORPUSCULAR HGB 25.1 pg (27.0-31.0); MEAN CORPUSCULAR HGB CONC 30.4 g/dl (33.0-37.0); MEAN PLATELET VOLUME 10.2 fl (9.6-12.3); MONO # 1.2 10*3/uL (0.1-1.0); MONO % 10.4 % (3.0-9.0); NEUT # 7.9 10*3/uL (2.3-7.9); NEUT % 70.1 % (47.0-73.0); PLATELET COUNT AUTOMATED 287 10*3/uL (130-400); RED BLOOD COUNT 4.34 10*6/uL (4.10-5.10); RED CELL DISTRI WIDTH 17.7 % (0-14.5); WHITE BLOOD COUNT 11.3 10*3/uL (4.8-10.8)
[2019-02-18 06:02] LABS: CREATININE 0.99 mg/dL (0.55-1.02)
[2019-02-18 08:00] VITALS: BP 132/72
--- NOTE | 2019-02-18 08:30 | NUR ---
Patient resting quietly with no c/o discomfort. Respirations easy and regular. Vital signs stable. No overt distress. WINSTON LOPEZ R
--- NOTE | 2019-02-18 08:57 | NUR ---
updated clincals faxed to [facility] for review. patient is referred to facility for assisted placement. Waiting on [place] pass/rr clearance.
--- NOTE | 2019-02-18 10:10 | NUR ---
PHYSICAL THERAPY Patient seen this am 1:1 for therapy visit and was resting supine in bed upon therapist arrival. Patient identified by name / and reports no c/o's pain other than chronic B knee stiffness. Patient transfers supine to sit EOB and sit to stand SBA, ambulating with use of wh walker, CGA, 50'x 2. Patient HR remained WFL's throughout entire therapy session and tolerated eyes open / closed without LOB. Patient also demonstates slow eric, able to walk backwards with wh walker, CGA, 5'x 1 with very cautious step sequence. Patient returned to supine in bed with increased fatigue and would benefit from SNF to improve standing activity tolerance. Patient remained in bed with call light, tray table and telephone. Will continue per POC as tolerated, total treatment time 17 minutes. Shawn Giles, TICKET SALES SUPERVISOR
--- NOTE | 2019-02-18 10:28 | NUR ---
OT NOTE Pt was seen this A.M. 1:1 for 17 minute OT session. Upon arrival pt was supine in bed. Pt identified by name and and had no complaints at this time. Pt transferred supine to sit EOB with SBA. Pt completed sit to stand transfer from bed level with CGA for safety. Challenged pt's dynamic standing tolerance needed for increased I in self care tasks and functional transfers, pt was able to tolerate aprox 5 minutes at a time before sitting due to fatigue. Functional mobility was then completed into the bathroom with CGA and use of w/w. Throughout pt required verbal prompts for walker safety due to walking away without it. Pt transferred on/off standard commode with CGA and use of w/w. She then stood sink side while washing her hands and face with CGA for safety. Pt transferred back into bed sit to supine with SBA. There she was left with call light in hand, tray table in place, and phone in reach. Continue with rec D/C plan to SNF. TRUE Kenny/Gabriella
--- NOTE | 2019-02-18 10:59 | NUR ---
Patient's [place] pass/rr has been [place], she can go to [facility] today if medically stable for discharge. Rula in hospitalists office notified.
[2019-02-18] MEDS ORDERED: Ipratropium Brom3 ML NEB (11:55)
[2019-02-18] MEDS ORDERED: Humalog SQ (11:55)
[2019-02-18] MEDS ORDERED: METOPROLOL TAR100 M1 PO (11:55)
[2019-02-18] MEDS ORDERED: KLOR-CON M2020 ME1 PO (11:55)
[2019-02-18] MEDS ORDERED: PREDNISONE10 MG PO (11:55)
[2019-02-18 12:00] VITALS: BP 145/65
--- NOTE | 2019-02-18 12:10 | NUR ---
Patient is being discharged to [facility] container terminal. [facility] is sending their ambulette to pick patient up at 2 PM. sales clerk food and patients daughter Celina notified.
--- NOTE | 2019-02-18 12:39 | NUR ---
DONNA met with the patients daughter Celina in the lobby of this facility. MOTOR SCOOTER REPAIRER explained the Surrogate Selection document. Patients daughter completed the document. Patients daughter was provided with the orginial document and a copy will be placed in the patients chart for Medical Records. -DONNA [place]
--- NOTE | 2019-02-18 13:52 | NUR ---
Discharge instructions reviewed with patient/family. Patient receptive and verbalizes understanding. Follow-up care arranged. Written instructions given to patient/family. WINSTON LOPEZ
--- NOTE | 2019-02-18 14:19 | NUR ---
REPORT CALLED TO STORMY AT [facility].
--- NOTE | 2019-02-18 16:50 | NUR ---
OCCUPATIONAL THERAPY CO-SIGN I approve of the Occupational Therapy notes written above. ELROY BERGER OTR/Gabriella
--- NOTE | 2019-02-19 07:58 | NUR ---
PHYSICAL THERAPY CO-SIGN I approve of the Physical Therapy notes written above. Mary Del Toro PT
== END 2019-02-18 14:00 | disposition other institution (70) | DRG 871 ==
LOC: ED 11:34 → 4E 17:48 → EDHOLD 17:48 → 4E 18:08
PROVIDERS: Internal Medicine; Physician Assistant; Student in an Organized Health Care Education/Training Program; ADMIT Internal Medicine
DX: A41.9 Sepsis, unspecified organism (principal); J18.9 Pneumonia, unspecified organism; J44.1 Chronic obstructive pulmonary disease with (acute) exacerbation; J44.0 Chronic obstructive pulmonary disease with (acute) lower respiratory infection; E44.0 Moderate protein-calorie malnutrition; I48.92 Unspecified atrial flutter; I50.30 Unspecified diastolic (congestive) heart failure; E11.65 Type 2 diabetes mellitus with hyperglycemia; R65.20 Severe sepsis without septic shock; K21.9 Gastro-esophageal reflux disease without esophagitis; I48.91 Unspecified atrial fibrillation; D64.9 Anemia, unspecified; I25.10 Atherosclerotic heart disease of native coronary artery without angina pectoris; F03.90 Unspecified dementia, unspecified severity, without behavioral disturbance, psychotic disturbance, mood disturbance, and anxiety; D72.819 Decreased white blood cell count, unspecified; I27.20 Pulmonary hypertension, unspecified; I34.0 Nonrheumatic mitral (valve) insufficiency; I07.1 Rheumatic tricuspid insufficiency; R41.9 Unspecified symptoms and signs involving cognitive functions and awareness; Z68.27 Body mass index [BMI] 27.0-27.9, adult; Z88.2 Allergy status to sulfonamides; Z90.710 Acquired absence of both cervix and uterus; Z95.5 Presence of coronary angioplasty implant and graft; Z87.891 Personal history of nicotine dependence; I25.2 Old myocardial infarction; Z79.01 Long term (current) use of anticoagulants; Z79.899 Other long term (current) drug therapy; Z86.73 Personal history of transient ischemic attack (TIA), and cerebral infarction without residual deficits; Z95.818 Presence of other cardiac implants and grafts; Z98.49 Cataract extraction status, unspecified eye

== ENCOUNTER → 2019-03-16 | Outpatient (CLI) | payer MEDICARE, MEDICAID ==
[~2019-03-16] MED LIST changes: +Humalog SQ; +Ipratropium Brom3 ML NEB; +KLOR-CON M2020 ME1 PO; +METOPROLOL TAR100 M1 PO; +PANTOPRAZOLE SO40 MG PO
== END | disposition home or self-care (01) ==
LOC: CT 03-15 03:19
DX: J90 Pleural effusion, not elsewhere classified (principal); J98.11 Atelectasis; I25.10 Atherosclerotic heart disease of native coronary artery without angina pectoris

== ENCOUNTER 2020-04-25 08:20 | Observation (INO) | payer MEDICARE, MEDICAID ==
[~2020-04-25] VITALS: Ht 170.2 cm; Wt 86.7 kg
[~2020-04-25 08:20] MED LIST changes: -FERROUS GLUCON324 M1 PO; +FERROUS GLUCON324 M2 PO
[2020-04-25 08:34] VITALS: BP 151/63
[2020-04-25 08:40] LABS: HEMATOCRIT 38.1 % (37.0-47.0); MEAN CORPUSCULAR HGB 29.7 pg (27.0-31.0); MEAN CORPUSCULAR HGB CONC 31.2 g/dl (33.0-37.0); MEAN PLATELET VOLUME 10.5 fl (9.6-12.3); PLATELET COUNT AUTOMATED 159 10*3/uL (130-400); RED BLOOD COUNT 4.01 10*6/uL (4.10-5.10); RED CELL DISTRI WIDTH 13.4 % (0-14.5); WHITE BLOOD COUNT 4.8 10*3/uL (4.8-10.8)
[2020-04-25 08:50] LABS: ACT PARTIAL THROMBO TIME 27.6 SECONDS (20.0-32.1); INTERNATIONAL NORM RATIO 1.2 (2.0-3.5)
[2020-04-25 09:00] LABS: ALBUMIN 2.2 gm/dl (3.1-4.5); ALKALINE PHOSPHATASE 89 U/L (45-117); BUN 10 mg/dl (7-24); CHLORIDE 104 mmol/L (98-107); CREATININE 1.19 mg/dL (0.55-1.02); POTASSIUM 3.7 mmol/L (3.5-5.1); SGOT/AST 9 IU/L (3-35); SGPT/ALT 8 U/L (12-78); SODIUM 140 mmol/L (136-145); TOTAL PROTEIN 5.7 gm/dL (6.4-8.2)
[2020-04-25 09:05] LABS: TROPONIN I < 0.015 ng/ml (<0.045)
[2020-04-25 09:16] LABS: TOTAL CELLS COUNTED 100 #CELLS
[2020-04-25 09:17] LABS: PLATELET SUFFICIENCY NORMAL (NORMAL)
[2020-04-25 10:00] VITALS: BP 137/67
[2020-04-25] MEDS ORDERED: ADVAIR 250/501 EA INH (11:41)
[2020-04-25] MEDS ORDERED: ASPIRIN ADULT L81 M1 PO (11:42)
[2020-04-25] MEDS ORDERED: BUSPIRONE HCL10 MG PO (11:44)
[2020-04-25] MEDS ORDERED: THERA-D100 MCG PO (11:46)
[2020-04-25] MEDS ORDERED: GOOD NEIGHBOR P20 MG PO (11:47)
[2020-04-25] MEDS ORDERED: LIPITOR10 MG PO (11:53)
[2020-04-25] MEDS ORDERED: MAG-OXIDE200 MG PO (11:55)
[2020-04-25] MEDS ORDERED: Zaroxolyn,Diul2.5 MG PO (11:56)
[2020-04-25] MEDS ORDERED: Oscal,Oyster S500 MG PO (12:01)
[2020-04-25] MEDS ORDERED: ZOLOFT25 MG PO (12:05)
[2020-04-25] MEDS ORDERED: TYLENOL325 M1 PO (12:06)
[2020-04-25] MEDS ORDERED: PROVENTIL HFA6.7 GM INH (12:07)
[2020-04-25 16:00] VITALS: BP 132/57
[2020-04-25 20:00] VITALS: BP 140/62
[2020-04-26] VITALS: BP 124/87
[2020-04-26 06:17] LABS: ALBUMIN 2.1 gm/dl (3.1-4.5); BUN 10 mg/dl (7-24); CHLORIDE 106 mmol/L (98-107); POTASSIUM 3.6 mmol/L (3.5-5.1); SODIUM 138 mmol/L (136-145)
[2020-04-26 06:21] LABS: HEMATOCRIT 37.1 % (37.0-47.0); MEAN CELL VOLUME 94.4 fl (81.0-99.0); MEAN CORPUSCULAR HGB 29.5 pg (27.0-31.0); MEAN CORPUSCULAR HGB CONC 31.3 g/dl (33.0-37.0); MEAN PLATELET VOLUME 10.5 fl (9.6-12.3); PLATELET COUNT AUTOMATED 156 10*3/uL (130-400); RED BLOOD COUNT 3.93 10*6/uL (4.10-5.10); RED CELL DISTRI WIDTH 13.3 % (0-14.5)
[2020-04-26 06:25] LABS: ALKALINE PHOSPHATASE 83 U/L (45-117); CHOLESTEROL 58 mg/dL (<200); CREATININE 1.06 mg/dL (0.55-1.02); FREE T4 1.07 ng/dl (0.76-1.46); HDL CHOLESTEROL 29 mg/dl (40-60); LDL CHOLESTEROL 11 mg/dL (9-159); SGOT/AST 11 IU/L (3-35); SGPT/ALT 7 U/L (12-78); TOTAL PROTEIN 5.6 gm/dL (6.4-8.2); TRIGLYCERIDES 88 mg/dl (<150); VLDL CHOLESTEROL 18 mg/dL (6-40)
[2020-04-26 07:13] LABS: TOTAL CELLS COUNTED 100 #CELLS
[2020-04-26 07:14] LABS: PLATELET SUFFICIENCY NORMAL (NORMAL)
[2020-04-26 07:29] LABS: VITAMIN D, 25-HYDROXY 66.4 ng/mL (30-100)
[2020-04-26 08:00] VITALS: BP 130/70
== END 2020-04-26 15:40 ==
LOC: ED 08:20 → EDHOLD 09:24 → 4E 09:39
PROVIDERS: Emergency Medicine; Registered Nurse; ADMIT Internal Medicine; ATTEND Internal Medicine
DX: R07.9 Chest pain, unspecified (principal); E11.22 Type 2 diabetes mellitus with diabetic chronic kidney disease; I12.9 Hypertensive chronic kidney disease with stage 1 through stage 4 chronic kidney disease, or unspecified chronic kidney disease; N18.31 Chronic kidney disease, stage 3a; N17.0 Acute kidney failure with tubular necrosis; E61.1 Iron deficiency; I48.0 Paroxysmal atrial fibrillation; I13.0 Hypertensive heart and chronic kidney disease with heart failure and stage 1 through stage 4 chronic kidney disease, or unspecified chronic kidney disease; I50.32 Chronic diastolic (congestive) heart failure; F03.90 Unspecified dementia, unspecified severity, without behavioral disturbance, psychotic disturbance, mood disturbance, and anxiety; E11.65 Type 2 diabetes mellitus with hyperglycemia; E87.2 Acidosis; E03.9 Hypothyroidism, unspecified; I25.10 Atherosclerotic heart disease of native coronary artery without angina pectoris; K21.9 Gastro-esophageal reflux disease without esophagitis; E55.9 Vitamin D deficiency, unspecified; R06.82 Tachypnea, not elsewhere classified; I48.91 Unspecified atrial fibrillation; R00.1 Bradycardia, unspecified; J43.9 Emphysema, unspecified; R53.1 Weakness; D72.819 Decreased white blood cell count, unspecified; G47.33 Obstructive sleep apnea (adult) (pediatric); E66.3 Overweight; Z95.5 Presence of coronary angioplasty implant and graft; Z90.710 Acquired absence of both cervix and uterus; Z87.891 Personal history of nicotine dependence; Z95.818 Presence of other cardiac implants and grafts; Z98.890 Other specified postprocedural states

== ENCOUNTER 2020-05-15 00:24 | Inpatient (IN) | payer MEDICARE, MEDICAID ==
[~2020-05-15] VITALS: Ht 170.2 cm; Wt 75.8 kg
[2020-05-15] VITALS (8 sets, daily range): BP systolic 98–126; BP diastolic 50–94
[~2020-05-15 00:24] MED LIST changes: +ADVAIR 250/501 EA INH; +ASPIRIN ADULT L81 M1 PO; +BUSPIRONE HCL10 MG PO; +GOOD NEIGHBOR P20 MG PO; +LIPITOR10 MG PO; +MAG-OXIDE200 MG PO; +Oscal,Oyster S500 MG PO; +PROVENTIL HFA6.7 GM INH; +THERA-D100 MCG PO; +TYLENOL325 M1 PO; +ZOLOFT25 MG PO; +Zaroxolyn,Diul2.5 MG PO
[2020-05-15 00:47] LABS: BASO % 0.3 % (0.0-1.0); EOS # 0.2 10*3/uL (0.0-0.4); EOS % 2.3 % (1.0-4.0); HEMATOCRIT 40.3 % (37.0-47.0); LYMPH # 1.7 10*3/uL (1.3-4.4); LYMPH % 23.6 % (27.0-41.0); MEAN CELL VOLUME 91.6 fl (81.0-99.0); MEAN CORPUSCULAR HGB 29.8 pg (27.0-31.0); MEAN CORPUSCULAR HGB CONC 32.5 g/dl (33.0-37.0); MEAN PLATELET VOLUME 10.4 fl (9.6-12.3); MONO # 0.8 10*3/uL (0.1-1.0); MONO % 11.7 % (3.0-9.0); NEUT # 4.4 10*3/uL (2.3-7.9); NEUT % 61.8 % (47.0-73.0); PLATELET COUNT AUTOMATED 189 10*3/uL (130-400); RED CELL DISTRI WIDTH 12.6 % (0-14.5); WHITE BLOOD COUNT 7.1 10*3/uL (4.8-10.8)
[2020-05-15 01:03] LABS: ALBUMIN 2.5 gm/dl (3.1-4.5); CREATININE 1.8 mg/dL (0.55-1.02); POTASSIUM 3.3 mmol/L (3.5-5.1); TOTAL PROTEIN 6.7 gm/dL (6.4-8.2)
[2020-05-15 01:29] LABS: BILIRUBIN Negative (Negative); BLOOD 1+ (Negative); CLARITY Turbid (Clear); COLOR Yellow (Yellow); GLUCOSE Negative (Negative); KETONE Negative (Negative); LEUKO ESTERASE 3+ (Negative); NITRITE Negative (Negative); PH 5.5 (4.5-8.0); SPECIFIC GRAVITY 1.015 (1.001-1.030); UROBILINOGEN 0.2 E.U./dl (0.0-1.0)
[2020-05-15 02:03] LABS: WBC TNTC wbc/hpf (0-5)
[2020-05-15] MEDS ORDERED: POTASSIUM CHLO10 ME5 PO (03:12)
[2020-05-15] MEDS ORDERED: GLUCAGON EMERGEN1 M2 IM (03:23)
[2020-05-15] MEDS ORDERED: NITROSTAT0.4 MG SL (03:25)
[2020-05-15] MEDS ORDERED: BUMETANIDE0.5 MG PO (03:28)
[2020-05-16] VITALS: BP 115/56
[2020-05-16 06:17] LABS: CREATININE 1.16 mg/dL (0.55-1.02); POTASSIUM 3.7 mmol/L (3.5-5.1)
[2020-05-16 06:22] LABS: BASO % 0.3 % (0.0-1.0); EOS # 0.3 10*3/uL (0.0-0.4); EOS % 4.7 % (1.0-4.0); HEMATOCRIT 39.2 % (37.0-47.0); LYMPH # 1.6 10*3/uL (1.3-4.4); LYMPH % 28.3 % (27.0-41.0); MEAN CORPUSCULAR HGB 29.8 pg (27.0-31.0); MEAN CORPUSCULAR HGB CONC 31.1 g/dl (33.0-37.0); MEAN PLATELET VOLUME 10.6 fl (9.6-12.3); MONO # 0.7 10*3/uL (0.1-1.0); MONO % 11.5 % (3.0-9.0); NEUT # 3.1 10*3/uL (2.3-7.9); NEUT % 54.9 % (47.0-73.0); PLATELET COUNT AUTOMATED 172 10*3/uL (130-400); RED BLOOD COUNT 4.09 10*6/uL (4.10-5.10); WHITE BLOOD COUNT 5.7 10*3/uL (4.8-10.8)
[2020-05-16 06:23] LABS: MEAN CELL VOLUME 95.8 fl (81.0-99.0)
[2020-05-16 08:00] VITALS: BP 110/40
[2020-05-16 10:08] VITALS: BP 125/69
[2020-05-16 11:46] VITALS: BP 103/55
[2020-05-16 16:00] VITALS: BP 123/60
[2020-05-16 20:00] VITALS: BP 128/66
[2020-05-17] VITALS (7 sets, daily range): BP systolic 92–152; BP diastolic 63–94
[2020-05-18] VITALS: BP 120/70
[2020-05-18 08:00] VITALS: BP 133/76
[2020-05-18 12:00] VITALS: BP 127/70
[2020-05-18 16:00] VITALS: BP 97/60
[2020-05-18 20:00] VITALS: BP 144/67
[2020-05-19] VITALS: BP 109/50
[2020-05-19 08:00] VITALS: BP 112/63
[2020-05-19] MEDS ORDERED: CEFUROXIME AXE500 MG PO (09:54)
== END 2020-05-19 11:34 | DRG 689 ==
LOC: ED 00:24 → 4E 02:15 → EDHOLD 02:15 → 4E 02:47
PROVIDERS: Internal Medicine; ADMIT Student in an Organized Health Care Education/Training Program; ATTEND Student in an Organized Health Care Education/Training Program
DX: N39.0 Urinary tract infection, site not specified (principal); N17.0 Acute kidney failure with tubular necrosis; G93.41 Metabolic encephalopathy; E43 Unspecified severe protein-calorie malnutrition; E87.6 Hypokalemia; K21.9 Gastro-esophageal reflux disease without esophagitis; F03.90 Unspecified dementia, unspecified severity, without behavioral disturbance, psychotic disturbance, mood disturbance, and anxiety; I48.91 Unspecified atrial fibrillation; I25.10 Atherosclerotic heart disease of native coronary artery without angina pectoris; N18.31 Chronic kidney disease, stage 3a; K74.60 Unspecified cirrhosis of liver; K57.30 Diverticulosis of large intestine without perforation or abscess without bleeding; J43.9 Emphysema, unspecified; G47.33 Obstructive sleep apnea (adult) (pediatric); E03.9 Hypothyroidism, unspecified; B95.61 Methicillin susceptible Staphylococcus aureus infection as the cause of diseases classified elsewhere; Z20.822 Contact with and (suspected) exposure to COVID-19; E11.65 Type 2 diabetes mellitus with hyperglycemia; E11.22 Type 2 diabetes mellitus with diabetic chronic kidney disease; I50.9 Heart failure, unspecified; Z88.2 Allergy status to sulfonamides; Z95.5 Presence of coronary angioplasty implant and graft; Z90.711 Acquired absence of uterus with remaining cervical stump; Z87.891 Personal history of nicotine dependence; Z82.49 Family history of ischemic heart disease and other diseases of the circulatory system; Z86.73 Personal history of transient ischemic attack (TIA), and cerebral infarction without residual deficits; I25.2 Old myocardial infarction; Z79.82 Long term (current) use of aspirin; Z79.899 Other long term (current) drug therapy; Z68.26 Body mass index [BMI] 26.0-26.9, adult

== ENCOUNTER 2020-10-23 09:30 | Inpatient (IN) | payer MEDICARE, MEDICAID ==
[~2020-10-23] VITALS: Ht 170.1 cm; Wt 76.3 kg
[~2020-10-23 09:30] MED LIST changes: +BUMETANIDE0.5 MG PO; +CEFUROXIME AXE500 MG PO; +GLUCAGON EMERGEN1 M2 IM; +NITROSTAT0.4 MG SL; +POTASSIUM CHLO10 ME5 PO
[2020-10-23 09:54] VITALS: BP 149/69
[2020-10-23 10:07] LABS: BASO % 0.3 % (0.0-1.0); EOS % 0.3 % (1.0-4.0); HEMATOCRIT 41.3 % (37.0-47.0); LYMPH # 0.8 10*3/uL (1.3-4.4); LYMPH % 10.7 % (27.0-41.0); MEAN CELL VOLUME 94.3 fl (81.0-99.0); MEAN CORPUSCULAR HGB CONC 30.8 g/dl (33.0-37.0); MEAN PLATELET VOLUME 9.6 fl (9.6-12.3); MONO # 0.6 10*3/uL (0.1-1.0); NEUT # 5.6 10*3/uL (2.3-7.9); NEUT % 79.1 % (47.0-73.0); PLATELET COUNT AUTOMATED 204 10*3/uL (130-400); RED BLOOD COUNT 4.38 10*6/uL (4.10-5.10); RED CELL DISTRI WIDTH 14.4 % (0-14.5); WHITE BLOOD COUNT 7.1 10*3/uL (4.8-10.8)
[2020-10-23 10:21] LABS: ALBUMIN 2.4 gm/dl (3.1-4.5); ALKALINE PHOSPHATASE 157 U/L (45-117); BUN 16 mg/dl (7-24); CHLORIDE 106 mmol/L (98-107); CREATININE 1.33 mg/dL (0.55-1.02); LIPASE 33 U/L (73-393); POTASSIUM 3.9 mmol/L (3.5-5.1); SGOT/AST 22 IU/L (3-35); SGPT/ALT 17 U/L (12-78); SODIUM 139 mmol/L (136-145)
[2020-10-23 10:22] LABS: TROPONIN I < 0.015 ng/ml (<0.045)
[2020-10-23 12:30] VITALS: BP 140/60
[2020-10-23 16:00] VITALS: BP 146/76
[2020-10-23] MEDS ORDERED: Zaroxolyn,Diul2.5 MG PO (16:05)
[2020-10-23] MEDS ORDERED: THEO-24 200MG200 MG PO (16:06)
[2020-10-23] MEDS ORDERED: TYLENOL EXTRA500 M2 PO (16:07)
[2020-10-23 20:00] VITALS: BP 130/80
[2020-10-24] VITALS: BP 120/85
[2020-10-24 07:14] LABS: BASO % 0.2 % (0.0-1.0); HEMATOCRIT 43.2 % (37.0-47.0); LYMPH % 10.2 % (27.0-41.0); MEAN CELL VOLUME 96.2 fl (81.0-99.0); MEAN CORPUSCULAR HGB 29.4 pg (27.0-31.0); MEAN CORPUSCULAR HGB CONC 30.6 g/dl (33.0-37.0); MEAN PLATELET VOLUME 9.8 fl (9.6-12.3); MONO # 0.8 10*3/uL (0.1-1.0); MONO % 8.4 % (3.0-9.0); NEUT # 7.7 10*3/uL (2.3-7.9); NEUT % 80.8 % (47.0-73.0); PLATELET COUNT AUTOMATED 206 10*3/uL (130-400); RED BLOOD COUNT 4.49 10*6/uL (4.10-5.10); RED CELL DISTRI WIDTH 14.5 % (0-14.5); WHITE BLOOD COUNT 9.5 10*3/uL (4.8-10.8)
[2020-10-24 07:20] LABS: ALBUMIN 2.4 gm/dl (3.1-4.5); CREATININE 1.45 mg/dL (0.55-1.02); POTASSIUM 4.5 mmol/L (3.5-5.1)
[2020-10-24 08:00] VITALS: BP 128/87
[2020-10-24 12:00] VITALS: BP 101/60; BP 134/72
[2020-10-24 16:00] VITALS: BP 123/61
[2020-10-24 20:00] VITALS: BP 129/67
[2020-10-25] VITALS: BP 111/85
[2020-10-25 06:53] LABS: BASO % 0.2 % (0.0-1.0); EOS % 0.4 % (1.0-4.0); HEMATOCRIT 40.5 % (37.0-47.0); LYMPH # 1.4 10*3/uL (1.3-4.4); LYMPH % 16.1 % (27.0-41.0); MEAN CORPUSCULAR HGB CONC 30.9 g/dl (33.0-37.0); MEAN PLATELET VOLUME 9.7 fl (9.6-12.3); MONO % 12.3 % (3.0-9.0); NEUT % 70.8 % (47.0-73.0); PLATELET COUNT AUTOMATED 182 10*3/uL (130-400); RED BLOOD COUNT 4.31 10*6/uL (4.10-5.10); RED CELL DISTRI WIDTH 14.3 % (0-14.5); WHITE BLOOD COUNT 8.5 10*3/uL (4.8-10.8)
[2020-10-25 07:23] LABS: ALBUMIN 2.2 gm/dl (3.1-4.5); CREATININE 1.31 mg/dL (0.55-1.02)
[2020-10-25 07:24] LABS: POTASSIUM 3.2 mmol/L (3.5-5.1)
[2020-10-25 07:26] LABS: TOTAL PROTEIN 6.4 gm/dL (6.4-8.2)
[2020-10-25 08:00] VITALS: BP 139/60
[2020-10-25 12:00] VITALS: BP 130/68
[2020-10-25 16:00] VITALS: BP 121/72
[2020-10-25 16:30] VITALS: BP 106/67
[2020-10-25 20:00] VITALS: BP 110/50; BP 119/54
[2020-10-26] VITALS: BP 117/63
[2020-10-26 07:19] LABS: CREATININE 1.39 mg/dL (0.55-1.02); POTASSIUM 3.6 mmol/L (3.5-5.1)
[2020-10-26 08:00] VITALS: BP 110/65
[2020-10-26 12:00] VITALS: BP 136/76
[2020-10-26 12:48] LABS: HEMATOCRIT 44.8 % (37.0-47.0); MEAN CELL VOLUME 96.3 fl (81.0-99.0); MEAN CORPUSCULAR HGB 29.2 pg (27.0-31.0); MEAN CORPUSCULAR HGB CONC 30.4 g/dl (33.0-37.0); MEAN PLATELET VOLUME 9.8 fl (9.6-12.3); PLATELET COUNT AUTOMATED 158 10*3/uL (130-400); RED BLOOD COUNT 4.65 10*6/uL (4.10-5.10); WHITE BLOOD COUNT 7.7 10*3/uL (4.8-10.8)
[2020-10-26 12:59] LABS: ABG BASE EXCESS -1.9 mmol/L (-2.0-2.0); ARTERIAL BLOOD GAS PH 7.379 (7.35-7.45); ARTERIAL BLOOD GAS PO2 138.3 (80-90)
[2020-10-26 13:05] LABS: ALBUMIN 2.1 gm/dl (3.1-4.5); ALKALINE PHOSPHATASE 141 U/L (45-117); BUN 30 mg/dl (7-24); CHLORIDE 100 mmol/L (98-107); CREATININE 1.71 mg/dL (0.55-1.02); POTASSIUM 4.4 mmol/L (3.5-5.1); SGOT/AST 30 IU/L (3-35); SGPT/ALT 15 U/L (12-78); SODIUM 136 mmol/L (136-145); TOTAL PROTEIN 6.8 gm/dL (6.4-8.2)
[2020-10-26 13:07] LABS: TROPONIN I < 0.015 ng/ml (<0.045)
[2020-10-26 13:17] LABS: PLATELET SUFFICIENCY NORMAL (NORMAL); TOTAL CELLS COUNTED 100 #CELLS
[2020-10-26 16:00] VITALS: BP 113/74
[2020-10-26 18:12] LABS: BILIRUBIN Negative (Negative); BLOOD 1+ (Negative); CLARITY Cloudy (Clear); COLOR Yellow (Yellow); GLUCOSE Negative (Negative); KETONE Negative (Negative); LEUKO ESTERASE 3+ (Negative); NITRITE Negative (Negative)
[2020-10-26 18:25] LABS: BACTERIA 3+; EPITHELIAL CELLS 0-2; WBC TNTC wbc/hpf (0-5)
[2020-10-26 20:00] VITALS: BP 98/56
[2020-10-26 22:00] VITALS: BP 105/50
[2020-10-27] VITALS (9 sets, daily range): BP systolic 102–136; BP diastolic 52–76
[2020-10-27 05:33] LABS: ALBUMIN 1.9 gm/dl (3.1-4.5); CREATININE 1.41 mg/dL (0.55-1.02)
[2020-10-27 05:41] LABS: POTASSIUM 3.2 mmol/L (3.5-5.1); THEOPHYLLINE 11.9 ug/ml (10-20)
[2020-10-27 06:20] LABS: HEMATOCRIT 38.3 % (37.0-47.0); MEAN CORPUSCULAR HGB 29.3 pg (27.0-31.0); MEAN CORPUSCULAR HGB CONC 31.9 g/dl (33.0-37.0); MEAN PLATELET VOLUME 10.3 fl (9.6-12.3); PLATELET COUNT AUTOMATED 151 10*3/uL (130-400); RED BLOOD COUNT 4.16 10*6/uL (4.10-5.10); RED CELL DISTRI WIDTH 14.2 % (0-14.5); WHITE BLOOD COUNT 5.5 10*3/uL (4.8-10.8)
[2020-10-27 07:04] LABS: MEAN CELL VOLUME 92.1 fl (81.0-99.0)
[2020-10-27 07:09] LABS: BASOPHILS 1 % (0-1); PLATELET SUFFICIENCY NORMAL (NORMAL); TOTAL CELLS COUNTED 100 #CELLS
[2020-10-28] VITALS: BP 109/47
[2020-10-28 04:00] VITALS: BP 111/48
[2020-10-28 04:54] LABS: BASO % 0.1 % (0.0-1.0); EOS % 0.5 % (1.0-4.0); HEMATOCRIT 37.9 % (37.0-47.0); LYMPH # 1.2 10*3/uL (1.3-4.4); LYMPH % 15.6 % (27.0-41.0); MEAN CELL VOLUME 94.3 fl (81.0-99.0); MEAN CORPUSCULAR HGB 29.1 pg (27.0-31.0); MEAN CORPUSCULAR HGB CONC 30.9 g/dl (33.0-37.0); MEAN PLATELET VOLUME 9.7 fl (9.6-12.3); MONO # 0.8 10*3/uL (0.1-1.0); MONO % 10.2 % (3.0-9.0); NEUT # 5.6 10*3/uL (2.3-7.9); NEUT % 73.2 % (47.0-73.0); PLATELET COUNT AUTOMATED 153 10*3/uL (130-400); RED BLOOD COUNT 4.02 10*6/uL (4.10-5.10); RED CELL DISTRI WIDTH 14.5 % (0-14.5); WHITE BLOOD COUNT 7.6 10*3/uL (4.8-10.8)
[2020-10-28 05:12] LABS: CREATININE 1.58 mg/dL (0.55-1.02); TOTAL PROTEIN 5.8 gm/dL (6.4-8.2)
[2020-10-28 05:17] LABS: THEOPHYLLINE 8.6 ug/ml (10-20)
[2020-10-28 08:00] VITALS: BP 107/43
[2020-10-28 11:41] VITALS: BP 105/45
[2020-10-28 16:00] VITALS: BP 116/57
[2020-10-28 20:00] VITALS: BP 132/51
[2020-10-29] VITALS: BP 145/46
[2020-10-29 04:00] VITALS: BP 124/46
[2020-10-29 04:55] LABS: CREATININE 1.59 mg/dL (0.55-1.02); POTASSIUM 3.5 mmol/L (3.5-5.1)
[2020-10-29 06:10] LABS: BASO % 0.4 % (0.0-1.0); EOS # 0.1 10*3/uL (0.0-0.4); EOS % 1.8 % (1.0-4.0); HEMATOCRIT 36.6 % (37.0-47.0); LYMPH # 1.4 10*3/uL (1.3-4.4); LYMPH % 25.9 % (27.0-41.0); MEAN CELL VOLUME 93.4 fl (81.0-99.0); MEAN CORPUSCULAR HGB 28.8 pg (27.0-31.0); MEAN CORPUSCULAR HGB CONC 30.9 g/dl (33.0-37.0); MEAN PLATELET VOLUME 10.1 fl (9.6-12.3); MONO # 0.6 10*3/uL (0.1-1.0); MONO % 10.7 % (3.0-9.0); NEUT # 3.4 10*3/uL (2.3-7.9); NEUT % 60.7 % (47.0-73.0); PLATELET COUNT AUTOMATED 178 10*3/uL (130-400); RED BLOOD COUNT 3.92 10*6/uL (4.10-5.10); RED CELL DISTRI WIDTH 14.4 % (0-14.5); WHITE BLOOD COUNT 5.5 10*3/uL (4.8-10.8)
[2020-10-29 08:00] VITALS: BP 135/65
[2020-10-29 12:00] VITALS: BP 145/65
[2020-10-29 16:00] VITALS: BP 136/58
[2020-10-29 20:00] VITALS: BP 141/58
[2020-10-30] VITALS: BP 134/62
[2020-10-30 04:00] VITALS: BP 138/67
[2020-10-30 05:24] LABS: CREATININE 1.22 mg/dL (0.55-1.02); POTASSIUM 3.2 mmol/L (3.5-5.1)
[2020-10-30 08:00] VITALS: BP 138/79
[2020-10-30 12:00] VITALS: BP 107/53
[2020-10-30 16:00] VITALS: BP 113/63
[2020-10-30 20:00] VITALS: BP 141/46
[2020-10-31] VITALS: BP 123/48
[2020-10-31 05:45] LABS: BUN 21 mg/dl (7-24); CHLORIDE 113 mmol/L (98-107); CREATININE 1.07 mg/dL (0.55-1.02); SODIUM 141 mmol/L (136-145)
[2020-10-31 05:53] LABS: POTASSIUM 4.2 mmol/L (3.5-5.1)
[2020-10-31 06:16] LABS: BASO % 0.2 % (0.0-1.0); EOS # 0.1 10*3/uL (0.0-0.4); EOS % 1.7 % (1.0-4.0); HEMATOCRIT 38.6 % (37.0-47.0); LYMPH # 1.2 10*3/uL (1.3-4.4); LYMPH % 23.3 % (27.0-41.0); MEAN CELL VOLUME 94.4 fl (81.0-99.0); MEAN CORPUSCULAR HGB 28.9 pg (27.0-31.0); MEAN CORPUSCULAR HGB CONC 30.6 g/dl (33.0-37.0); MEAN PLATELET VOLUME 10.1 fl (9.6-12.3); MONO # 0.7 10*3/uL (0.1-1.0); MONO % 13.8 % (3.0-9.0); NEUT # 3.1 10*3/uL (2.3-7.9); NEUT % 60.6 % (47.0-73.0); PLATELET COUNT AUTOMATED 179 10*3/uL (130-400); RED BLOOD COUNT 4.09 10*6/uL (4.10-5.10); WHITE BLOOD COUNT 5.2 10*3/uL (4.8-10.8)
[2020-10-31 08:00] VITALS: BP 135/49
[2020-10-31 12:00] VITALS: BP 128/58
[2020-10-31] MEDS ORDERED: AMOX-CLAV 500-1 EACH PO (13:31)
== END 2020-10-31 17:01 | DRG 208 ==
LOC: ED 09:30 → ICCU 11:26 → 4E 11:26 → EDHOLD 11:26 → 4E 14:09 → ICCU 10-26 12:27 → 4E 10-31 06:13
PROVIDERS: Emergency Medicine; Internal Medicine; Student in an Organized Health Care Education/Training Program; ADMIT Internal Medicine; ATTEND Internal Medicine
PROC: 5A1935Z Respiratory Ventilation, Less than 24 Consecutive Hours (ICD-10-PCS; principal; 2020-10-26)
PROC: 0BH17EZ Insertion of Endotracheal Airway into Trachea, Via Natural or Artificial Opening (ICD-10-PCS; 2020-10-26)
DX: J96.00 Acute respiratory failure, unspecified whether with hypoxia or hypercapnia (principal); I50.33 Acute on chronic diastolic (congestive) heart failure; N17.0 Acute kidney failure with tubular necrosis; E43 Unspecified severe protein-calorie malnutrition; J18.9 Pneumonia, unspecified organism; E87.2 Acidosis; I85.00 Esophageal varices without bleeding; J98.11 Atelectasis; N39.0 Urinary tract infection, site not specified; I47.1 Supraventricular tachycardia; T48.6X1A Poisoning by antiasthmatics, accidental (unintentional), initial encounter; Z20.822 Contact with and (suspected) exposure to COVID-19; N18.32 Chronic kidney disease, stage 3b; K21.9 Gastro-esophageal reflux disease without esophagitis; J43.9 Emphysema, unspecified; E03.9 Hypothyroidism, unspecified; J32.9 Chronic sinusitis, unspecified; G47.33 Obstructive sleep apnea (adult) (pediatric); I48.0 Paroxysmal atrial fibrillation; E11.65 Type 2 diabetes mellitus with hyperglycemia; E11.22 Type 2 diabetes mellitus with diabetic chronic kidney disease; E53.8 Deficiency of other specified B group vitamins; G30.9 Alzheimer's disease, unspecified; F02.80 Dementia in other diseases classified elsewhere, unspecified severity, without behavioral disturbance, psychotic disturbance, mood disturbance, and anxiety; I25.10 Atherosclerotic heart disease of native coronary artery without angina pectoris; E87.6 Hypokalemia; R56.9 Unspecified convulsions; R00.1 Bradycardia, unspecified; E83.39 Other disorders of phosphorus metabolism; E83.41 Hypermagnesemia; Z68.26 Body mass index [BMI] 26.0-26.9, adult; Z90.710 Acquired absence of both cervix and uterus; Z95.5 Presence of coronary angioplasty implant and graft; Z87.891 Personal history of nicotine dependence; Z88.2 Allergy status to sulfonamides; Z79.899 Other long term (current) drug therapy; Z79.82 Long term (current) use of aspirin; Y92.89 Other specified places as the place of occurrence of the external cause; Z86.73 Personal history of transient ischemic attack (TIA), and cerebral infarction without residual deficits

== ENCOUNTER 2021-08-14 19:19 | Inpatient (IN) | payer MEDICARE, MEDICAID ==
[~2021-08-14] VITALS: Ht 167.6 cm; Wt 81.2 kg
[~2021-08-14 19:19] MED LIST changes: +AMOX-CLAV 500-1 EACH PO; +ASPIRIN ADULT L81 M2 PO; +BUSPIRONE10 MG PO; +FERROUS GLUCON324 MG PO; +K-TAB10 MEQ PO; +LEVOFLOXACIN750 M2 PO; +LOPRESSOR100 M1 PO; +MUCINEX ER600 MG PO; +THEO-24 200MG200 MG PO; +TUSSIN DM COUG118 M2 PO; +TYLENOL EXTRA500 M2 PO
[2021-08-14 19:24] VITALS: BP 105/61
[2021-08-14 20:03] LABS: BASO % 0.4 % (0.0-1.0); EOS # 0.2 10*3/uL (0.0-0.4); EOS % 3.2 % (1.0-4.0); HEMATOCRIT 25.7 % (37.0-47.0); LYMPH # 1.6 10*3/uL (1.3-4.4); LYMPH % 31.4 % (27.0-41.0); MEAN CELL VOLUME 98.5 fl (81.0-99.0); MEAN CORPUSCULAR HGB 30.3 pg (27.0-31.0); MEAN CORPUSCULAR HGB CONC 30.7 g/dl (33.0-37.0); MEAN PLATELET VOLUME 9.2 fl (9.6-12.3); MONO # 0.7 10*3/uL (0.1-1.0); MONO % 13.4 % (3.0-9.0); NEUT # 2.5 10*3/uL (2.3-7.9); NEUT % 51.4 % (47.0-73.0); PLATELET COUNT AUTOMATED 197 10*3/uL (130-400); RED BLOOD COUNT 2.61 10*6/uL (4.10-5.10); RED CELL DISTRI WIDTH 16.1 % (0-14.5); WHITE BLOOD COUNT 4.9 10*3/uL (4.8-10.8)
[2021-08-14 20:20] LABS: CREATININE 1.76 mg/dL (0.55-1.02); POTASSIUM 3.7 mmol/L (3.5-5.1); TOTAL PROTEIN 6.1 gm/dL (6.4-8.2)
[2021-08-14 22:20] VITALS: BP 102/64
[2021-08-15 01:40] VITALS: BP 132/46
[2021-08-15 02:30] VITALS: BP 116/52
[2021-08-15 06:07] LABS: BASO % 0.4 % (0.0-1.0); EOS # 0.2 10*3/uL (0.0-0.4); EOS % 3.9 % (1.0-4.0); HEMATOCRIT 24.3 % (37.0-47.0); LYMPH # 1.4 10*3/uL (1.3-4.4); LYMPH % 29.8 % (27.0-41.0); MEAN CELL VOLUME 98.8 fl (81.0-99.0); MEAN CORPUSCULAR HGB 30.1 pg (27.0-31.0); MEAN CORPUSCULAR HGB CONC 30.5 g/dl (33.0-37.0); MEAN PLATELET VOLUME 9.5 fl (9.6-12.3); MONO # 0.7 10*3/uL (0.1-1.0); MONO % 14.3 % (3.0-9.0); NEUT # 2.4 10*3/uL (2.3-7.9); NEUT % 51.2 % (47.0-73.0); PLATELET COUNT AUTOMATED 189 10*3/uL (130-400); RED BLOOD COUNT 2.46 10*6/uL (4.10-5.10); RED CELL DISTRI WIDTH 16.3 % (0-14.5); WHITE BLOOD COUNT 4.6 10*3/uL (4.8-10.8)
[2021-08-15 06:25] LABS: POTASSIUM 3.6 mmol/L (3.5-5.1)
[2021-08-15 06:33] LABS: CREATININE 1.6 mg/dL (0.55-1.02); FREE T4 0.76 ng/dl (0.76-1.46); THYROID STIM HORMONE (HS) 6.82 uIU/ml (0.358-4.75); TOTAL PROTEIN 5.9 gm/dL (6.4-8.2)
[2021-08-15 06:43] LABS: ACT PARTIAL THROMBO TIME 28.1 SECONDS (20.0-32.1); INTERNATIONAL NORM RATIO 1.2 (2.0-3.5)
[2021-08-15 08:00] VITALS: BP 108/55
[2021-08-15 12:00] VITALS: BP 110/55
[2021-08-15 16:00] VITALS: BP 122/44
[2021-08-15 20:00] VITALS: BP 120/66
[2021-08-16] VITALS: BP 106/43
[2021-08-16 06:13] LABS: CREATININE 1.58 mg/dL (0.55-1.02); POTASSIUM 3.9 mmol/L (3.5-5.1)
[2021-08-16 06:14] LABS: EOS % 0.2 % (1.0-4.0); HEMATOCRIT 27.5 % (37.0-47.0); LYMPH % 20.4 % (27.0-41.0); MEAN CELL VOLUME 101.1 fl (81.0-99.0); MEAN CORPUSCULAR HGB 30.1 pg (27.0-31.0); MEAN CORPUSCULAR HGB CONC 29.8 g/dl (33.0-37.0); MEAN PLATELET VOLUME 9.9 fl (9.6-12.3); MONO # 0.4 10*3/uL (0.1-1.0); NEUT # 3.4 10*3/uL (2.3-7.9); PLATELET COUNT AUTOMATED 177 10*3/uL (130-400); RED BLOOD COUNT 2.72 10*6/uL (4.10-5.10); RED CELL DISTRI WIDTH 16.4 % (0-14.5); WHITE BLOOD COUNT 4.8 10*3/uL (4.8-10.8)
[2021-08-16 08:00] VITALS: BP 126/68
[2021-08-16 12:00] VITALS: BP 120/68
[2021-08-16 16:00] VITALS: BP 117/50
[2021-08-16 20:00] VITALS: BP 113/50
[2021-08-17] VITALS: BP 102/66
[2021-08-17 06:01] LABS: CREATININE 1.51 mg/dL (0.55-1.02); POTASSIUM 3.4 mmol/L (3.5-5.1)
[2021-08-17 06:10] LABS: BASO % 0.2 % (0.0-1.0); EOS % 0.4 % (1.0-4.0); HEMATOCRIT 26.7 % (37.0-47.0); LYMPH # 1.3 10*3/uL (1.3-4.4); LYMPH % 22.6 % (27.0-41.0); MEAN CELL VOLUME 102.3 fl (81.0-99.0); MEAN CORPUSCULAR HGB 30.3 pg (27.0-31.0); MEAN CORPUSCULAR HGB CONC 29.6 g/dl (33.0-37.0); MONO # 0.6 10*3/uL (0.1-1.0); MONO % 10.5 % (3.0-9.0); NEUT # 3.8 10*3/uL (2.3-7.9); NEUT % 66.1 % (47.0-73.0); PLATELET COUNT AUTOMATED 178 10*3/uL (130-400); RED BLOOD COUNT 2.61 10*6/uL (4.10-5.10); RED CELL DISTRI WIDTH 16.7 % (0-14.5); WHITE BLOOD COUNT 5.7 10*3/uL (4.8-10.8)
[2021-08-17 08:00] VITALS: BP 106/83
[2021-08-17 12:00] VITALS: BP 95/42
[2021-08-17 15:55] VITALS: BP 93/54
[2021-08-17 20:00] VITALS: BP 103/61
[2021-08-18] VITALS: BP 98/50
[2021-08-18 05:10] LABS: CREATININE 1.59 mg/dL (0.55-1.02); POTASSIUM 3.8 mmol/L (3.5-5.1)
[2021-08-18 06:06] LABS: BASO % 0.2 % (0.0-1.0); EOS # 0.1 10*3/uL (0.0-0.4); EOS % 1.2 % (1.0-4.0); HEMATOCRIT 26.6 % (37.0-47.0); LYMPH # 1.2 10*3/uL (1.3-4.4); MEAN CELL VOLUME 102.7 fl (81.0-99.0); MEAN CORPUSCULAR HGB 30.1 pg (27.0-31.0); MEAN CORPUSCULAR HGB CONC 29.3 g/dl (33.0-37.0); MEAN PLATELET VOLUME 10.3 fl (9.6-12.3); MONO # 0.7 10*3/uL (0.1-1.0); MONO % 10.5 % (3.0-9.0); NEUT # 4.5 10*3/uL (2.3-7.9); NEUT % 69.9 % (47.0-73.0); PLATELET COUNT AUTOMATED 185 10*3/uL (130-400); RED BLOOD COUNT 2.59 10*6/uL (4.10-5.10); RED CELL DISTRI WIDTH 16.8 % (0-14.5); WHITE BLOOD COUNT 6.5 10*3/uL (4.8-10.8)
[2021-08-18 08:00] VITALS: BP 90/70
[2021-08-18 12:00] VITALS: BP 104/46
[2021-08-18 16:00] VITALS: BP 108/64
[2021-08-18 20:00] VITALS: BP 110/42
[2021-08-19] VITALS: BP 101/81
[2021-08-19 05:11] LABS: POTASSIUM 3.2 mmol/L (3.5-5.1)
[2021-08-19 05:13] LABS: CREATININE 1.53 mg/dL (0.55-1.02)
[2021-08-19 06:32] LABS: BASO % 0.2 % (0.0-1.0); EOS # 0.1 10*3/uL (0.0-0.4); EOS % 1.5 % (1.0-4.0); HEMATOCRIT 25.9 % (37.0-47.0); LYMPH # 1.3 10*3/uL (1.3-4.4); LYMPH % 19.5 % (27.0-41.0); MEAN CORPUSCULAR HGB 30.5 pg (27.0-31.0); MEAN CORPUSCULAR HGB CONC 30.5 g/dl (33.0-37.0); MEAN PLATELET VOLUME 10.2 fl (9.6-12.3); MONO # 0.8 10*3/uL (0.1-1.0); MONO % 11.7 % (3.0-9.0); NEUT # 4.4 10*3/uL (2.3-7.9); NEUT % 66.8 % (47.0-73.0); PLATELET COUNT AUTOMATED 168 10*3/uL (130-400); RED BLOOD COUNT 2.59 10*6/uL (4.10-5.10); RED CELL DISTRI WIDTH 16.1 % (0-14.5); WHITE BLOOD COUNT 6.6 10*3/uL (4.8-10.8)
[2021-08-19 08:00] VITALS: BP 116/55
[2021-08-19 12:00] VITALS: BP 125/50
[2021-08-19] MEDS ORDERED: BUMETANIDE1 MG PO (12:55)
[2021-08-19] MEDS ORDERED: VIBRA-TAB100 MG PO (12:55)
== END 2021-08-19 15:57 | DRG 193 ==
LOC: ED 19:19 → EDHOLD 23:11 → 4E 23:11
PROVIDERS: Emergency Medicine; Internal Medicine; Student in an Organized Health Care Education/Training Program; ADMIT Family Medicine; ATTEND Family Medicine
DX: J18.9 Pneumonia, unspecified organism (principal); J96.01 Acute respiratory failure with hypoxia; N17.0 Acute kidney failure with tubular necrosis; I50.33 Acute on chronic diastolic (congestive) heart failure; E43 Unspecified severe protein-calorie malnutrition; I13.0 Hypertensive heart and chronic kidney disease with heart failure and stage 1 through stage 4 chronic kidney disease, or unspecified chronic kidney disease; I48.21 Permanent atrial fibrillation; D64.9 Anemia, unspecified; N18.32 Chronic kidney disease, stage 3b; E03.9 Hypothyroidism, unspecified; G47.33 Obstructive sleep apnea (adult) (pediatric); J43.9 Emphysema, unspecified; F03.90 Unspecified dementia, unspecified severity, without behavioral disturbance, psychotic disturbance, mood disturbance, and anxiety; K21.9 Gastro-esophageal reflux disease without esophagitis; E11.65 Type 2 diabetes mellitus with hyperglycemia; Z20.822 Contact with and (suspected) exposure to COVID-19; E87.8 Other disorders of electrolyte and fluid balance, not elsewhere classified; S70.01XA Contusion of right hip, initial encounter; I25.10 Atherosclerotic heart disease of native coronary artery without angina pectoris; S51.811A Laceration without foreign body of right forearm, initial encounter; S51.812A Laceration without foreign body of left forearm, initial encounter; M25.551 Pain in right hip; E83.51 Hypocalcemia; R53.81 Other malaise; I48.0 Paroxysmal atrial fibrillation; X58.XXXA Exposure to other specified factors, initial encounter; Y93.89 Activity, other specified; Z88.2 Allergy status to sulfonamides; Z95.5 Presence of coronary angioplasty implant and graft; Z90.711 Acquired absence of uterus with remaining cervical stump; Z98.49 Cataract extraction status, unspecified eye; Z90.710 Acquired absence of both cervix and uterus; Z87.891 Personal history of nicotine dependence; Z98.42 Cataract extraction status, left eye; Z98.41 Cataract extraction status, right eye; Z86.73 Personal history of transient ischemic attack (TIA), and cerebral infarction without residual deficits; Y92.89 Other specified places as the place of occurrence of the external cause; Y99.8 Other external cause status; Z68.29 Body mass index [BMI] 29.0-29.9, adult

== ENCOUNTER 2021-09-01 23:43 | Inpatient (IN) | payer MEDICARE, MEDICAID ==
[~2021-09-01] VITALS: Ht 170.1 cm; Wt 81.7 kg
[~2021-09-01 23:43] MED LIST changes: +VIBRA-TAB100 MG PO
[2021-09-02] VITALS (7 sets, daily range): BP systolic 107–131; BP diastolic 53–79
[2021-09-02 00:09] LABS: BASO % 0.2 % (0.0-1.0); EOS # 0.1 10*3/uL (0.0-0.4); EOS % 1.4 % (1.0-4.0); HEMATOCRIT 28.4 % (37.0-47.0); LYMPH # 0.8 10*3/uL (1.3-4.4); LYMPH % 18.9 % (27.0-41.0); MEAN CELL VOLUME 99.3 fl (81.0-99.0); MEAN CORPUSCULAR HGB 29.4 pg (27.0-31.0); MEAN CORPUSCULAR HGB CONC 29.6 g/dl (33.0-37.0); MEAN PLATELET VOLUME 9.7 fl (9.6-12.3); MONO # 0.5 10*3/uL (0.1-1.0); MONO % 11.2 % (3.0-9.0); NEUT # 2.9 10*3/uL (2.3-7.9); NEUT % 68.1 % (47.0-73.0); PLATELET COUNT AUTOMATED 136 10*3/uL (130-400); RED BLOOD COUNT 2.86 10*6/uL (4.10-5.10); RED CELL DISTRI WIDTH 15.2 % (0-14.5); WHITE BLOOD COUNT 4.3 10*3/uL (4.8-10.8)
[2021-09-02 00:19] LABS: ACT PARTIAL THROMBO TIME 30.5 SECONDS (20.0-32.1); INTERNATIONAL NORM RATIO 1.3 (2.0-3.5)
[2021-09-02 00:24] LABS: CREATININE 1.77 mg/dL (0.55-1.02); POTASSIUM 3.5 mmol/L (3.5-5.1); TOTAL PROTEIN 5.8 gm/dL (6.4-8.2)
[2021-09-02] MEDS ORDERED: Zaroxolyn,Diul2.5 MG PO (06:21)
[2021-09-03] VITALS: BP 116/60
[2021-09-03 05:01] LABS: CREATININE 1.42 mg/dL (0.55-1.02); POTASSIUM 3.2 mmol/L (3.5-5.1)
[2021-09-03 06:17] LABS: BASO % 0.2 % (0.0-1.0); EOS # 0.1 10*3/uL (0.0-0.4); EOS % 1.5 % (1.0-4.0); HEMATOCRIT 25.9 % (37.0-47.0); LYMPH # 1.2 10*3/uL (1.3-4.4); LYMPH % 30.7 % (27.0-41.0); MEAN CELL VOLUME 98.9 fl (81.0-99.0); MEAN CORPUSCULAR HGB 29.8 pg (27.0-31.0); MEAN CORPUSCULAR HGB CONC 30.1 g/dl (33.0-37.0); MEAN PLATELET VOLUME 10.1 fl (9.6-12.3); MONO # 0.5 10*3/uL (0.1-1.0); MONO % 11.7 % (3.0-9.0); NEUT # 2.2 10*3/uL (2.3-7.9); NEUT % 55.7 % (47.0-73.0); PLATELET COUNT AUTOMATED 132 10*3/uL (130-400); RED BLOOD COUNT 2.62 10*6/uL (4.10-5.10); RED CELL DISTRI WIDTH 15.2 % (0-14.5)
[2021-09-03 08:00] VITALS: BP 124/68
[2021-09-03 12:00] VITALS: BP 119/62
[2021-09-03 16:00] VITALS: BP 132/58
[2021-09-03 20:00] VITALS: BP 118/62
[2021-09-04] VITALS: BP 114/50
[2021-09-04 08:00] VITALS: BP 138/42
[2021-09-04 08:02] LABS: BASO % 0.5 % (0.0-1.0); EOS # 0.1 10*3/uL (0.0-0.4); EOS % 2.5 % (1.0-4.0); HEMATOCRIT 28.8 % (37.0-47.0); LYMPH # 1.2 10*3/uL (1.3-4.4); LYMPH % 27.9 % (27.0-41.0); MEAN CORPUSCULAR HGB 30.6 pg (27.0-31.0); MEAN CORPUSCULAR HGB CONC 30.9 g/dl (33.0-37.0); MEAN PLATELET VOLUME 9.6 fl (9.6-12.3); MONO # 0.6 10*3/uL (0.1-1.0); MONO % 13.8 % (3.0-9.0); NEUT # 2.4 10*3/uL (2.3-7.9); NEUT % 55.1 % (47.0-73.0); PLATELET COUNT AUTOMATED 115 10*3/uL (130-400); RED BLOOD COUNT 2.91 10*6/uL (4.10-5.10); RED CELL DISTRI WIDTH 14.7 % (0-14.5); WHITE BLOOD COUNT 4.4 10*3/uL (4.8-10.8)
[2021-09-04 08:18] LABS: CREATININE 1.26 mg/dL (0.55-1.02); POTASSIUM 3.5 mmol/L (3.5-5.1)
[2021-09-04 12:00] VITALS: BP 122/69
[2021-09-04 16:00] VITALS: BP 102/68
[2021-09-04 20:00] VITALS: BP 116/47
[2021-09-05] VITALS: BP 92/49
[2021-09-05 05:33] LABS: CREATININE 1.35 mg/dL (0.55-1.02); POTASSIUM 3.4 mmol/L (3.5-5.1)
[2021-09-05 06:43] LABS: BASO % 0.5 % (0.0-1.0); EOS # 0.1 10*3/uL (0.0-0.4); EOS % 1.8 % (1.0-4.0); HEMATOCRIT 26.6 % (37.0-47.0); LYMPH # 1.1 10*3/uL (1.3-4.4); LYMPH % 28.6 % (27.0-41.0); MEAN CELL VOLUME 97.4 fl (81.0-99.0); MEAN CORPUSCULAR HGB CONC 30.8 g/dl (33.0-37.0); MEAN PLATELET VOLUME 10.5 fl (9.6-12.3); MONO # 0.5 10*3/uL (0.1-1.0); MONO % 12.2 % (3.0-9.0); NEUT # 2.2 10*3/uL (2.3-7.9); NEUT % 56.6 % (47.0-73.0); PLATELET COUNT AUTOMATED 114 10*3/uL (130-400); RED BLOOD COUNT 2.73 10*6/uL (4.10-5.10); RED CELL DISTRI WIDTH 14.6 % (0-14.5)
[2021-09-05 08:00] VITALS: BP 141/51
[2021-09-05] MEDS ORDERED: LOPRESSOR50 M1 PO (10:52)
[2021-09-05] MEDS ORDERED: ALDACTONE25 MG PO (10:54)
== END 2021-09-05 11:24 | DRG 291 ==
LOC: ED 23:43 → EDHOLD 09-02 05:46 → 4E 09-02 05:46
PROVIDERS: Emergency Medicine; Registered Nurse; Student in an Organized Health Care Education/Training Program; ADMIT Family Medicine; ATTEND Family Medicine
PROC: 0W993ZZ Drainage of Right Pleural Cavity, Percutaneous Approach (ICD-10-PCS; principal; 2021-09-04)
PROC: 0W9B3ZX Drainage of Left Pleural Cavity, Percutaneous Approach, Diagnostic (ICD-10-PCS; 2021-09-04)
DX: I13.0 Hypertensive heart and chronic kidney disease with heart failure and stage 1 through stage 4 chronic kidney disease, or unspecified chronic kidney disease (principal); I50.33 Acute on chronic diastolic (congestive) heart failure; J91.8 Pleural effusion in other conditions classified elsewhere; I48.21 Permanent atrial fibrillation; I38 Endocarditis, valve unspecified; N18.32 Chronic kidney disease, stage 3b; F03.90 Unspecified dementia, unspecified severity, without behavioral disturbance, psychotic disturbance, mood disturbance, and anxiety; J44.9 Chronic obstructive pulmonary disease, unspecified; D53.9 Nutritional anemia, unspecified; K21.9 Gastro-esophageal reflux disease without esophagitis; Z20.822 Contact with and (suspected) exposure to COVID-19; R53.81 Other malaise; Z66 Do not resuscitate; Z51.5 Encounter for palliative care; Z95.5 Presence of coronary angioplasty implant and graft; Z90.711 Acquired absence of uterus with remaining cervical stump; Z98.49 Cataract extraction status, unspecified eye; Z88.2 Allergy status to sulfonamides; Z95.818 Presence of other cardiac implants and grafts; Z86.73 Personal history of transient ischemic attack (TIA), and cerebral infarction without residual deficits; Z68.29 Body mass index [BMI] 29.0-29.9, adult

== ENCOUNTER 2021-09-15 08:17 | Emergency (ER) | payer MEDICARE, MEDICAID ==
[~2021-09-15] VITALS: Wt 84.6 kg
[~2021-09-15 08:17] MED LIST changes: +ALDACTONE25 MG PO; +LOPRESSOR50 M1 PO
[2021-09-15 08:48] LABS: BASO % 0.4 % (0.0-1.0); EOS # 0.2 10*3/uL (0.0-0.4); EOS % 3.7 % (1.0-4.0); HEMATOCRIT 31.2 % (37.0-47.0); LYMPH # 1.3 10*3/uL (1.3-4.4); LYMPH % 24.5 % (27.0-41.0); MEAN CELL VOLUME 94.8 fl (81.0-99.0); MEAN CORPUSCULAR HGB 29.2 pg (27.0-31.0); MEAN CORPUSCULAR HGB CONC 30.8 g/dl (33.0-37.0); MEAN PLATELET VOLUME 9.7 fl (9.6-12.3); MONO # 0.8 10*3/uL (0.1-1.0); MONO % 14.2 % (3.0-9.0); NEUT % 56.8 % (47.0-73.0); PLATELET COUNT AUTOMATED 207 10*3/uL (130-400); RED BLOOD COUNT 3.29 10*6/uL (4.10-5.10); RED CELL DISTRI WIDTH 13.6 % (0-14.5); WHITE BLOOD COUNT 5.4 10*3/uL (4.8-10.8)
[2021-09-15 09:11] LABS: ACT PARTIAL THROMBO TIME 23.8 SECONDS (20.0-32.1); INTERNATIONAL NORM RATIO 1.3 (2.0-3.5)
[2021-09-15] MEDS ORDERED: NITROSTAT0.4 MG PO (09:15)
[2021-09-15] MEDS ORDERED: OS-CAL 500-VIT1 EAC1 PO (09:17)
[2021-09-15] MEDS ORDERED: TYLENOL325 M1 PO (09:20)
[2021-09-15 09:31] LABS: CREATININE 1.24 mg/dL (0.55-1.02); POTASSIUM 3.3 mmol/L (3.5-5.1); TOTAL PROTEIN 6.1 gm/dL (6.4-8.2)
== END 2021-09-15 13:51 | disposition home or self-care (01) ==
LOC: ED 08:17
PROVIDERS: Emergency Medicine
DX: J90 Pleural effusion, not elsewhere classified (principal); E11.22 Type 2 diabetes mellitus with diabetic chronic kidney disease; I13.0 Hypertensive heart and chronic kidney disease with heart failure and stage 1 through stage 4 chronic kidney disease, or unspecified chronic kidney disease; N18.30 Chronic kidney disease, stage 3 unspecified; I50.33 Acute on chronic diastolic (congestive) heart failure; I48.91 Unspecified atrial fibrillation; I25.10 Atherosclerotic heart disease of native coronary artery without angina pectoris; J44.9 Chronic obstructive pulmonary disease, unspecified; K21.9 Gastro-esophageal reflux disease without esophagitis; Z88.2 Allergy status to sulfonamides; Z79.899 Other long term (current) drug therapy; Z79.82 Long term (current) use of aspirin; Z87.891 Personal history of nicotine dependence

== ENCOUNTER 2021-09-24 11:43 | Emergency (ER) | payer MEDICARE, MEDICAID ==
[~2021-09-24] VITALS: Ht 170.1 cm; Wt 80.8 kg
[~2021-09-24 11:43] MED LIST changes: +NITROSTAT0.4 MG PO; +OS-CAL 500-VIT1 EAC1 PO
[2021-09-24 12:17] LABS: BASO % 0.1 % (0.0-1.0); EOS # 0.2 10*3/uL (0.0-0.4); EOS % 2.2 % (1.0-4.0); LYMPH # 1.2 10*3/uL (1.3-4.4); LYMPH % 17.2 % (27.0-41.0); MEAN CELL VOLUME 93.9 fl (81.0-99.0); MEAN CORPUSCULAR HGB 29.1 pg (27.0-31.0); MEAN PLATELET VOLUME 9.4 fl (9.6-12.3); MONO # 0.8 10*3/uL (0.1-1.0); MONO % 11.2 % (3.0-9.0); NEUT # 4.9 10*3/uL (2.3-7.9); NEUT % 68.9 % (47.0-73.0); PLATELET COUNT AUTOMATED 179 10*3/uL (130-400); RED BLOOD COUNT 3.09 10*6/uL (4.10-5.10); RED CELL DISTRI WIDTH 13.8 % (0-14.5); WHITE BLOOD COUNT 7.1 10*3/uL (4.8-10.8)
[2021-09-24 12:33] LABS: ACT PARTIAL THROMBO TIME 30.9 SECONDS (20.0-32.1); INTERNATIONAL NORM RATIO 1.4 (2.0-3.5)
[2021-09-24 12:40] LABS: CREATININE 1.58 mg/dL (0.55-1.02); POTASSIUM 3.5 mmol/L (3.5-5.1); TOTAL PROTEIN 5.6 gm/dL (6.4-8.2)
[2021-09-24 16:01] LABS: BF LYMPHOCYTES 55 %; BF MACROPHAGES 35 %; BF MESOTHELIALS 1 %; BF NEUTROPHILS 9 %
== END 2021-09-24 19:31 | disposition home or self-care (01) ==
LOC: ED 11:43
PROVIDERS: Emergency Medicine; Nurse Practitioner Family
DX: J95.811 Postprocedural pneumothorax (principal); J90 Pleural effusion, not elsewhere classified; R06.02 Shortness of breath; Z87.891 Personal history of nicotine dependence; Z98.890 Other specified postprocedural states; Z90.710 Acquired absence of both cervix and uterus; Z79.82 Long term (current) use of aspirin; Z79.899 Other long term (current) drug therapy; Z88.2 Allergy status to sulfonamides

== ENCOUNTER → 2021-09-26 | Outpatient (CLI) | payer MEDICARE, MEDICAID ==
[2021-09-26] VITALS (7 sets, daily range): BP systolic 88–122; BP diastolic 42–88
== END | disposition home or self-care (01) ==
LOC: EDSTATUS 13:00
PROVIDERS: ATTEND Emergency Medicine
DX: J90 Pleural effusion, not elsewhere classified (principal)